=== PATIENT | male | born 1960 | race Caucasian/White ===

== ENCOUNTER 2022-04-29 18:57 | Emergency (ER) | payer BC, SELFPAY ==
[2022-04-29 19:07] VITALS: BP 167/105; PULSE 64; RESP 18; TEMP 36.2; O2SAT 97; BMI 36.3
[2022-04-29 20:00] VITALS: BP 151/88; PULSE 61; RESP 16; O2SAT 99
--- NOTE | 2022-04-29 20:02 | CRLHL7_ITS ---
For Patients: As a result of the Century Cures Act, medical imaging exams and procedure reports are released immediately into your electronic medical record. You may view this report before your referring provider. If you have questions, please contact your health care provider. INDICATION: Vertigo TECHNIQUE: CT head without contrast. COMPARISON: None. FINDINGS: No intracranial hemorrhage. No discrete mass or mass effect. There is no midline shift. The basilar cisterns are patent. No hydrocephalus. The estes-white matter interface is otherwise preserved. No acute osseous abnormality. No extracalvarial soft tissue abnormality. The mastoid air cells are clear. The paranasal sinuses are well-aerated. The visualized portions of the orbits and globes are unremarkable. IMPRESSION: No acute intracranial process per unenhanced head CT. Please note that all CT scans at this facility use dose modulation, iterative reconstruction, and/or weight-based dosing when appropriate to reduce radiation dose to as low as reasonably achievable. Dictated by Rudy Choe MD @ 04/29/2022 8:36:44 PM (Electronically Signed)
--- NOTE | 2022-04-29 20:03 | ED_ITS ---
HPI - General Adult General Chief complaint: Dizziness/Vertigo Stated complaint: Off balance, Feels like he's stroking out Time Seen by Provider: 04/29/22 19:11 Source: patient Mode of arrival: ambulatory Limitations: no limitations History of Present Illness HPI narrative: 62-year-old male presents with an atypical sensation in his head that he has a very hard time describing. Symptoms have been present for 4 days, worsening in nature. Has not tried any medication to help with symptoms. He initially says it is dizziness and then a swishy feeling in his head but then denies vertigo or room spinning. He does not endorse any lightheadedness. It feels like a fullness in both ears and is accompanied by a mild headache. It is constant and worsening. There are no specific things that he can do to make it better worse. It is not affected by lying down, standing up or turning his head. No recent head injury. He said he has had episodes similar to this twice in the past that he has not sought medical care for as his symptoms had resolved within a day. No fevers, no symptoms of illness. No history of seizures. There is no family history of cerebrovascular disease at early ages but they do believe that his mother had a stroke in her mid 70s, she was found in her bed. He does have a notable history of AFib and is anticoagulated on Xarelto. He still believes himself to be in normal sinus rhythm. No recent URI or sinus congestion. He does admit that he was started on duloxetine a couple of months ago which has helped considerably with his lumbar radiculopathy. He states that he does feel a little agitated and anxious on the medication therefore he has started taking it every other day for about the past week. He had not previously connected that the 2 symptoms could be correlated. Past medical history is notable for AFib, hypertension. He also has lumbar radiculopathy. His medications are reviewed from reported records but do not reflect his recent starting of duloxetine. Socially, he is a former smoker heard, denies significant alcohol use. No pertinent travel. Family history negative for Meniere's disease, vertigo or early cerebrovascular disease. See above regarding his mother. ROS is notable for the headache and neurological symptoms as above, otherwise denies times 12 systems. Related Data Home Medications Medication Instructions Recorded Confirmed losartan 50 mg tablet 50 mg PO DAILY 10/18/21 10/18/21 metoprolol succinate 50 mg mg PO DAILY 10/18/21 10/18/21 tablet,extended release 24 hr rivaroxaban 20 mg tablet 20 mg PO DAILY 10/18/21 10/18/21 turmeric 400 mg capsule 450 mg PO 10/18/21 10/18/21 Previous Rx's Medication Instructions Recorded meclizine 25 mg tablet 25 mg PO BID PRN dizziness or 04/29/22 vertigo #20 tabs Allergies Allergy/AdvReac Type Severity Reaction Status Date / Time No Known Drug Allergies [facility]ergy Verified 10/18/21 08:48 [facility] Medical History History of back problems History of cardioversion ?Z98.890 - Other specified postprocedural states (ICD-10) Sleep apnea ?G47.30 - Sleep apnea, unspecified (ICD-10) Stroke ?I63.9 - Cerebral infarction, unspecified (ICD-10) Surgical History H/O umbilical hernia repair (~2018) ?Z98.890 - Other specified postprocedural states (ICD-10) ?Z87.19 - Personal history of other diseases of the digestive system (ICD-10) History of total right hip replacement (~11/2015) ?Z96.641 - Presence of right artificial hip joint (ICD-10) Family History Mother Stroke Sister Diabetes Other Prostate cancer Social History Smoking Status: Never smoker Do you use any of these nicotine containing products: None Second hand tobacco smoke exposure: No Exam Const: Vital Signs, click to edit/add: Vital Signs - 24 hr 04/29/22 19:07 04/29/22 20:08 Temperature 97.1 F L Pulse Rate [Right Pulse Oximeter] 64 Respiratory Rate 18 Blood Pressure [Ri ght Upper Arm] 167/105 H Pulse Oximetry 97 98 Oxygen Delivery Me thod Room Air Documenting provider has reviewed patient's vital signs: yes Common normals: no apparent distress and alert General appearance: cooperative and comfortable Orientation/consciousness: Yes awake Other: Cooperative, not an ideal historian. HENMT: Common normals: normocephalic, head/scalp atraumatic and TM's normal bilaterally Head and scalp: normocephalic and atraumatic Face and sinus: normal facial exam Tympanic membrane: TM's normal bilaterally Mouth: oral and palatal mucosa normal Throat: posterior oropharynx normal Eye: Common normals: PERRL, EOMs intact bilaterally and conjunctivae normal General eye: normal appearance of both eyes Conjunctiva: conjunctiva(e) normal Pupil: PERRL Other: Slight left mostly horizontal nystagmus with slight amount of clockwise rotation. Neck & C-Spine: Common normals: full ROM and no lymphadenopathy Resp: Common normals: normal respiratory effort, no use of accessory muscles and clear to auscultation bilaterally Effort & inspection: able to speak in complete sentences Auscultation: clear to auscultation bilaterally Cardio: Common normals: regular rate, regular rhythm, S1 normal heart sound, S2 normal heart sound and no murmurs Rate: regular rate Rhythm: regular rhythm Heart sounds: S1 normal and S2 normal GI: Common normals: Normal to inspection, nondistended, normoactive bowel sounds present, soft to palpation, non-tender and no hepatosplenomegaly Palpation: soft and no hepatosplenomegaly Extremity: Common normals: normal to inspection and no pedal edema Neuro: Sensorium/orientation: awake and alert Cranial nerves: CN normal except as noted Coordination/balance: [id number] test normal, does not sway with eyes open and Normal rapid alternating movements of the distal upper extremity present (Neuro) Speech: speech normal Gait (neuro): normal gait Motor exam: strength 5/5 throughout, no tremor noted and no movement abnormalities noted Coordination: [id number] test normal, Romberg test normal, does not sway with eyes open and rapid alternating movement UE normal Psych: Attitude: calm and engaged Activity/motor behavior: appropriate eye contact Thought content: normal thought content Insight: insight good Judgement: judgment good Skin: Common normals: no rashes or lesions noted General skin exam: no rashes or lesions noted Course Vital Signs Vital signs: Initial Vital Signs Temperature 97.1 F L 04/29/22 19:07 Temperature Source Temporal Artery Scan 04/29/22 19:07 Pulse Rate 64 04/29/22 19:07 Respiratory Rate 18 04/29/22 19:07 Blood Pressure 167/105 H 04/29/22 19:07 Blood Pressure Mean 125 04/29/22 19:07 Blood Pressure Position Sitting 04/29/22 19:07 Pulse Oximetry 97 04/29/22 19:07 Oxygen Delivery Method Room Air 04/29/22 19:07 Vital Signs Temperature 97.1 F L 04/29/22 19:07 Pulse Rate 64 04/29/22 19:07 Respiratory Rate 18 04/29/22 19:07 Blood Pressure 167/105 H 04/29/22 19:07 Pulse Oximetry 97 04/29/22 19:07 Oxygen Delivery Method Room Air 04/29/22 19:07 Temperature 97.1 F L 04/29/22 19:07 Pulse Rate 64 04/29/22 19:07 Respiratory Rate 18 04/29/22 19:07 Blood Pressure 167/105 H 04/29/22 19:07 Pulse Oximetry 98 04/29/22 20:08 Oxygen Delivery Method Room Air 04/29/22 19:07 Medical Decision Making MDM Narrative Medical decision making narrative: Unfortunately since he is not able to describe the feeling very well, my differential is quite wide. Neurological, cardiac, vestibular, infectious. Will start with basic labs, head CT, EKG. I am suspecting this is actually vertigo and I think it may be brought on by his sporadic use of the duloxetine. Going to try Tylenol and meclizine while we await these results. Patient without significant improvement on duloxetine. I question him further regarding his symptoms to see if he is able to clarify better, it is a mild dull headache with a vague dizzy sensation in his head. Still no other new neurological symptoms. I have reviewed the CT which is reassuring, no signs of abnormality. Labs reviewed, also reassuring. Suspect that this is a mild vertigo or a side effect to his duloxetine. Stressed the importance of taking the duloxetine consistently and I would like for him to try meclizine for couple of days to see if this improves his symptoms. Reviewed alarm symptoms with him. If not improving in 3 days would like him to make a follow-up appoint with his primary care doctor and to arrange MRI. Lab Data Lab results reviewed: Yes I reviewed the patient's lab results Lab results narrative: Unremarkable Labs: Lab Results 04/29/22 Range/Units 20:15 WBC 5.00 (4.50-11.00) K/uL RBC 5.24 (4.30-5.90) m/uL Hgb 15.6 (13.5-17.5) gm/dL Hct 45.9 (37.0-53.0) % MCV 88 (80-100) fL MCH 30 (26-34) pg MCHC 34 (32-36) gm/dL RDW Coeff of Jose 12.7 (11.5-15.5) % Plt Count 187 (140-440) K/uL Neut % (Auto) 41.4 L (42.0-72.0) % Lymph % (Auto) 40.0 (20-44) % [facility] % (Auto) 9.0 (0.0-11.0) % Eos % (Auto) 8.8 H (0.0-7.0) % Baso % (Auto) 0.4 (0.0-3.0) % Neut # (Auto) 2.10 (1.7-7.0) K/uL Lymph # (Auto) 2.00 (0.90-2.90) K/uL [facility] # (Auto) 0.50 (0.00-0.90) K/UL Eos # (Auto) 0.40 (0.00-0.50) K/uL Baso # (Auto) 0.02 (0.00-0.30) K/uL Sodium 139 (135-149) mmol/L Potassium 4.3 (3.6-5.1) mmol/L Chloride 112 (96-114) mmol/L Carbon Dioxide 24 (20-32) mmol/L BUN 15 (7-30) mg/dL Creatinine 1.0 (0.5-1.5) mg/dL Estimated Creat Clear 79.48 Estimated GFR 84 ml/min Glucose 105 (60-115) mg/dL Calcium 9.0 (8.4-10.6) mg/dL Troponin I < 0.01 L (0.01-0.04) ng/mL C-Reactive Protein 0.6 (0.5-1.0) mg/dL Urine Color Yellow (Yellow) Urine Appearance Clear (Clear) Urine pH 7.0 (5.0-8.5) Ur Specific Jackson 1.015 (1.000-1.030) Urine Protein Negative (Negative) Urine Glucose (UA) Negative (Negative) Urine Ketones Negative (Negative) Urine Blood Negative (Negative) Urine Nitrite Negative (Negative) Urine Bilirubin Negative (Negative) Urine Urobilinogen 0.2 (0.2-1.0) Ur Leukocyte Esterase Negative (Negative) Ethyl Alcohol < 0.01 L (0.01-0.03) % POC Troponin I 0.00 L (0.01-0.04) ng/ml Imaging Data CT scan - head: Attestation: I have reviewed the pertinent imaging results. My impression: Normal head CT Radiologist's impression: IMPRESSION: No acute intracranial process per unenhanced head CT. ECG Data Attestation: I personally reviewed and interpreted this ECG as follows: Prior ECG tracings: not available for review (Normal sinus rhythm, rate of 64. Normal axis no significant ST or T-wave abnormalities ) Discharge Plan Discharge Clinical Impression: Vertigo Patient Disposition: Home, Self-Care Condition: Stable Instructions: Dizziness (ED) Additional Instructions: As we discussed, your head CT and labs are all perfect. Your EKG looks good in you are certainly not in AFib again. I am not certain what is causing your dizziness and headache. I do think that your sporadic use of your Cymbalta could be a factor. I would like for you to take the medicine more consistently and every day. I have given you a medicine called meclizine which may help in time, it does take a few hours to kick in. I have given you a prescription for this and I would like for you to continue trying it a couple times per day. If her symptoms are not improving in 3 more days, I would like for you to make a follow-up appointment with her primary care provider. A consideration of doing an MRI may be reasonable. Unfortunately this is not available here on Sunday night and I do not think hospitalized you for 2 days to get this is a good use of your time. There are no identified emergent type symptoms tonight. It is okay to continue chiropractic manipulation as well. Activity Level: No Restrictions Discharge Diet: Regular Prescriptions: New meclizine 25 mg tablet 25 mg PO BID PRN (Reason: dizziness or vertigo) Qty: 20 0RF No Action losartan 50 mg tablet 50 mg PO DAILY rivaroxaban 20 mg tablet 20 mg PO DAILY Rx Instructions: WITH MEAL metoprolol succinate 50 mg tablet extended release 24 hr PO DAILY turmeric 400 mg capsule 450 mg PO Follow Up/Referrals: Tera Coombs MD [Primary Care Provider] - Stand Alone Forms: [email or web address] Info Instructions
[2022-04-29 20:08] VITALS: O2SAT 98
[2022-04-29] MEDS: MECLIZINE HCL 25 MG TABLET PO (20:10)
[2022-04-29] MEDS: ACETAMINOPHEN 500 MG TABLET 1000 MG PO (20:10)
[2022-04-29 20:21] LABS: Basophils Absolute Auto 0.02 K/uL (0.00-0.30); Basophils Percent Auto 0.4 % (0.0-3.0); Eosinophils Percent Auto 8.8 % (0.0-7.0); Hematocrit 45.9 % (37.0-53.0); Hemoglobin* 15.6 gm/dL (13.5-17.5); Immature Granulocytes Abs Auto 0.02 K/uL (0.00-0.30); Immature Granulocytes Pct Auto 0.4 %; Mean Corpuscular HGB Conc 34 gm/dL (32-36); Mean Corpuscular Hemoglobin 30 pg (26-34); Mean Corpuscular Volume 88 fL (80-100); Neutrophils Percent Auto 41.4 % (42.0-72.0); Platelet Count* 187 K/uL (140-440); RDW Coefficient of Variation % 12.7 % (11.5-15.5); Red Blood Count 5.24 m/uL (4.30-5.90)
[2022-04-29 20:23] LABS: Slide Review Reflex No
[2022-04-29 20:37] LABS: Chloride* 112 mmol/L (96-114); Potassium* 4.3 mmol/L (3.6-5.1); Sodium* 139 mmol/L (135-149)
[2022-04-29 20:40] LABS: Est. Creatinine Clearance* 79.48; Estimated Glomerular Filt Rate 84 ml/min
[2022-04-29 20:41] LABS: Appearance Urine Clear (Clear); Bilirubin Urine Negative (Negative); Blood Urea Nitrogen* 15 mg/dL (7-30); Blood Urine Negative (Negative); Carbon Dioxide* 24 mmol/L (20-32); Color Urine Yellow (Yellow); Ethanol* < 0.01 % (0.01-0.03); Glucose Urine Negative (Negative); Glucose* 105 mg/dL (60-115); Ketones Urine Negative (Negative); Leukocyte Esterase Urine Negative (Negative); Nitrite Urine Negative (Negative); Protein Urine Negative (Negative); Specific Gravity Urine 1.015 (1.000-1.030); Urobilinogen Urine 0.2 (0.2-1.0)
[2022-04-29 20:44] LABS: C Reactive Protein* 0.6 mg/dL (0.5-1.0)
[2022-04-29 20:56] LABS: Troponin I* < 0.01 ng/mL (0.01-0.04)
[2022-04-29 21:00] VITALS: BP 148/91; PULSE 66; RESP 16; O2SAT 97
== END 2022-04-29 21:18 | disposition home or self-care (01) ==
PROVIDERS: Emergency Provider Family Medicine; PCP Family Medicine
DX: R42 Dizziness and giddiness (principal)
CPT/HCPCS: 36415; 70450; 80048; 81003; 82077; 84484; 85025; 86140; 93005; 94761; 99283; 99284; 99285; A9270

== ENCOUNTER 2023-05-08 18:24 | Outpatient (CLI) | payer MEDICARE, MEDICAID, SELFPAY | END 2023-05-08 18:25 | disposition home or self-care (01) | LOC: AMB 05-12 08:03 | PROVIDERS: PCP Family Medicine; Visit Provider Student in an Organized Health Care Education/Training Program | DX: R11.10 Vomiting, unspecified (principal); R19.7 Diarrhea, unspecified; R53.1 Weakness | CPT/HCPCS: A0425; A0427 ==

== ENCOUNTER 2023-05-08 19:02 | Emergency (ER) | payer MEDICARE, MEDICAID, SELFPAY ==
[2023-05-08] VITALS (18 sets, daily range): BP systolic 122–169; BP diastolic 61–129; PULSE 61–91; RESP 16–20; TEMP 37.1; O2SAT 91–97; BMI 36.3
--- NOTE | 2023-05-08 19:47 | ED.NAVMDI ---
HPI - Nausea/Vomiting/Diarrhea General Date Seen: 05/08/23 Chief complaint: Nausea/Vomiting Stated complaint: Nausea/vomiting Time Seen by Provider: 05/08/23 19:15 Source: patient Mode of arrival: ambulatory Limitations: no limitations History of Present Illness HPI Narrative: Patient is a 63-year-old male with a history of AFib on Xarelto presenting to emergency department for nausea/vomiting/diarrhea. He states he thinks he got food poisoning. He ate a piece of chicken that was left in his car this morning. Then about 15:00 he started having large amount of emesis. Since then he has been feeling very nauseated. Has had 2 or 3 episodes of watery diarrhea since then. Denies having symptoms like this before. No recent antibiotic use. Does not having any abdominal pain. Was feeling lightheaded and dizzy during the symptoms. Still mildly feeling lightheaded but is much improved from earlier. Has not been able to eat or drink much since symptoms started. Is not having any abdominal pain. No previous abdominal surgeries. Denies fevers, chills, chest pain, shortness of breath, headache, vision changes, weakness, numbness, dysuria. Related Data Home Medications Medication Instructions Recorded Confirmed rivaroxaban 20 mg tablet 20 mg PO DAILY 10/18/21 05/08/23 turmeric 400 mg capsule 450 mg PO 10/18/21 12/25/22 duloxetine 30 mg capsule,delayed 30 mg PO QDAY 12/26/22 12/26/22 release metoprolol succinate 100 mg 100 mg PO QDAY 12/26/22 05/08/23 tablet,extended release 24 hr valsartan PO 12/26/22 12/26/22 Allergies Allergy/AdvReac Type Severity Reaction Status Date / Time No Known Drug Allergies Allergy Verified 05/08/23 19:10 Review of Systems Status of ROS: Reports: 10 or more systems reviewed and unremarkable except as noted in History and below [facility] Medical History Encounter for follow-up ?Z09 - Encounter for follow-up examination after completed treatment for conditions other than malignant neoplasm (ICD-10) History of cardioversion ?Z98.890 - Other specified postprocedural states (ICD-10) History of back problems Sleep apnea ?G47.30 - Sleep apnea, unspecified (ICD-10) Stroke ?I63.9 - Cerebral infarction, unspecified (ICD-10) Surgical History H/O umbilical hernia repair (~2018) ?Z98.890 - Other specified postprocedural states (ICD-10) ?Z87.19 - Personal history of other diseases of the digestive system (ICD-10) History of total right hip replacement (~11/2015) ?Z96.641 - Presence of right artificial hip joint (ICD-10) Family History Mother Stroke Sister Diabetes Other Prostate cancer Social History Smoking Status: Never smoker Do you use any of these nicotine containing products: None Second hand tobacco smoke exposure: No How often do you have a drink containing alcohol: never AUDIT-C Alcohol total score: 0 Non-prescribed substance use: denies use Exam Narrative: Exam Narrative: Const: Well-nourished, Well-developed, in mild distress Eyes: PERRL, no conjunctival injection, and symmetrical lids HENT: Atraumatic external nose and ears. Moist mucous membranes. Neck: Symmetric, trachea midline, No thyromegaly. CVS: RRR, No murmurs or gallops. Peripheral pulses 2+ and equal in all extremities RESP: Unlabored respiratory effort. Clear to auscultation bilaterally. GI: Nontender/Nondistended, No rebound or guarding. MSK:Extremities w/o deformity, Normal Active ROM Skin: Warm, Dry. No rashes or lesions. Neuro: Normal Muscle tone, No focal neurological deficits. Psych: Awake, Alert, & Oriented x3. Appropriate mood and affect. Const: Vital Signs, click to edit/add: Vital Signs - 24 hr 05/08/23 19:11 05/08/23 20:10 05/08/23 20:15 Temperature 98.8 F Pulse Rate 63 74 Pulse Rate [Pulse Oximeter] 61 Pulse Rate [orthos tatic lying Right] Pulse Rate [orthos tatic sitting Righ t] Pulse Rate [orthos tatic standing Rig ht] Respiratory Rate 20 Blood Pressure Blood Pressure [Ri ght Upper Arm] 153/129 H Blood Pressure [or thostatic lying Ri ght Arm] Blood Pressure [or thostatic sitting Right Arm] Blood Pressure [or thostatic standing Right Arm] Pulse Oximetry 97 97 92 Oxygen Delivery Me thod Room Air 05/08/23 20:30 05/08/23 20:32 05/08/23 20:45 Temperature Pulse Rate 75 68 Pulse Rate [Pulse Oximeter] Pulse Rate [orthos tatic lying Right] Pulse Rate [orthos tatic sitting Righ t] Pulse Rate [orthos tatic standing Rig ht] Respiratory Rate Blood Pressure 122/61 Blood Pressure [Ri ght Upper Arm] Blood Pressure [or thostatic lying Ri ght Arm] Blood Pressure [or thostatic sitting Right Arm] Blood Pressure [or thostatic standing Right Arm] Pulse Oximetry 95 91 Oxygen Delivery Me thod 05/08/23 21:02 05/08/23 21:32 05/08/23 22:02 Temperature Pulse Rate 78 Pulse Rate [Pulse Oximeter] Pulse Rate [orthos tatic lying Right] Pulse Rate [orthos tatic sitting Righ t] Pulse Rate [orthos tatic standing Rig ht] Respiratory Rate 20 Blood Pressure 142/91 H 154/95 H 161/98 H Blood Pressure [Ri ght Upper Arm] Blood Pressure [or thostatic lying Ri ght Arm] Blood Pressure [or thostatic sitting Right Arm] Blood Pressure [or thostatic standing Right Arm] Pulse Oximetry 94 Oxygen Delivery Me thod 05/08/23 22:32 05/08/23 22:41 05/08/23 22:42 Temperature Pulse Rate 82 88 Pulse Rate [Pulse Oximeter] Pulse Rate [orthos tatic lying Right] Pulse Rate [orthos tatic sitting Righ t] Pulse Rate [orthos tatic standing Rig ht] Respiratory Rate Blood Pressure 153/96 H 142/98 H Blood Pressure [Ri ght Upper Arm] Blood Pressure [or thostatic lying Ri ght Arm] Blood Pressure [or thostatic sitting Right Arm] Blood Pressure [or thostatic standing Right Arm] Pulse Oximetry 94 95 Oxygen Delivery Me thod 05/08/23 22:44 05/08/23 22:45 05/08/23 22:46 Temperature Pulse Rate 88 87 91 Pulse Rate [Pulse Oximeter] Pulse Rate [orthos tatic lying Right] Pulse Rate [orthos tatic sitting Righ t] Pulse Rate [orthos tatic standing Rig ht] Respiratory Rate Blood Pressure 161/95 H 169/120 H Blood Pressure [Ri ght Upper Arm] Blood Pressure [or thostatic lying Ri ght Arm] Blood Pressure [or thostatic sitting Right Arm] Blood Pressure [or thostatic standing Right Arm] Pulse Oximetry 97 96 96 Oxygen Delivery Me thod 05/08/23 22:57 05/08/23 23:03 05/08/23 23:32 Temperature Pulse Rate 82 85 Pulse Rate [Pulse Oximeter] Pulse Rate [orthos tatic lying Right] 82 Pulse Rate [orthos tatic sitting Righ t] 85 Pulse Rate [orthos tatic standing Rig ht] 90 Respiratory Rate 16 16 Blood Pressure 159/94 H 146/92 H Blood Pressure [Ri ght Upper Arm] Blood Pressure [or thostatic lying Ri ght Arm] 142/98 H Blood Pressure [or thostatic sitting Right Arm] 161/95 H Blood Pressure [or thostatic standing Right Arm] 169/120 H Pulse Oximetry 92 94 Oxygen Delivery Me thod Course Vital Signs Vital signs: Initial Vital Signs Temperature 98.8 F 05/08/23 19:11 Temperature Source Temporal Artery Scan 05/08/23 19:11 Pulse Rate 61 05/08/23 19:11 Pulse Rhythm Regular 05/08/23 19:11 Pulse Strength 3+ Normal 05/08/23 19:11 Respiratory Rate 20 05/08/23 19:11 Blood Pressure 153/129 H 05/08/23 19:11 Blood Pressure Mean 137 H 05/08/23 19:11 Blood Pressure Position Sitting 05/08/23 19:11 Pulse Oximetry 97 05/08/23 19:11 Oxygen Delivery Method Room Air 05/08/23 19:11 Vital Signs Temperature 98.8 F 05/08/23 19:11 Pulse Rate 61 05/08/23 19:11 Respiratory Rate 20 05/08/23 19:11 Blood Pressure 153/129 H 05/08/23 19:11 Pulse Oximetry 97 05/08/23 19:11 Oxygen Delivery Method Room Air 05/08/23 19:11 Temperature 98.8 F 05/08/23 19:11 Pulse Rate 85 05/08/23 23:32 Respiratory Rate 16 05/08/23 23:32 Blood Pressure 146/92 H 05/08/23 23:32 Pulse Oximetry 94 05/08/23 23:32 Oxygen Delivery Method Room Air 05/08/23 19:11 Medications Administered Medications: Discontinued Medications Generic Name Dose Route Start Last Admin Trade Name Jerome PRDeb Reason Stop Dose Admin Diphenhydramine HCl 25 mg 05/08/23 22:29 05/08/23 22:43 Diphenhydramine 50 Mg/Ml Inj IVP 05/08/23 22:30 25 mg ONCE ONE Administration Lactated Ringer's 1,000 mls @ 1,000 mls/hr 05/08/23 19:36 05/08/23 21:25 Lactated Ringers 1000 Ml IV 05/08/23 20:35 Infused .Q1H ONE Infusion Lactated Ringer's 1,000 mls @ 1,000 mls/hr 05/08/23 21:19 05/08/23 22:37 Lactated Ringers 1000 Ml IV 05/08/23 22:18 Infused .Q1H ONE Infusion Ketorolac Tromethamine 15 mg 05/08/23 21:19 05/08/23 21:27 Ketorolac 15 Mg/Ml Inj IVP 05/08/23 21:20 15 mg ONCE ONE Administration Meclizine HCl 25 mg 05/08/23 22:29 05/08/23 22:42 Meclizine Hcl 25 Mg Tablet PO 05/08/23 22:30 25 mg ONCE ONE Administration Metoclopramide HCl 10 mg 05/08/23 22:29 05/08/23 22:42 Metoclopramide Hcl 5 Mg/Ml Inj IVP 05/08/23 22:30 10 mg ONCE ONE Administration Ondansetron HCl 4 mg 05/08/23 19:36 05/08/23 19:59 Ondansetron 2 Mg/Ml Inj IVP 05/08/23 19:37 4 mg ONCE ONE Administration MDM - Nausea/Vomiting/Diarrhea MDM Narrative Medical decision making narrative: Patient is a 63-year-old male presenting for nausea, vomiting, diarrhea. Is not in any pain currently. Does seem dehydrated on L fluids will be given. Will also give Zofran for nausea. No recent antibiotics but with multiple large episodes of diarrhea will check for C diff. also order CBC, CMP, lipase. This time I do not believe imaging is necessary Patient's lab work all returned showing no concerning findings. He had another episode of emesis. He is now stating he is feeling very lightheaded and dizzy. States he has been feeling lightheaded and dizzy since he got here and had to hold himself up when he was standing by the sink to clean himself. I do not notice any ataxia when I saw the patient by the sink. He seemed to be doing well. He states he has a headache also. Gave him another L of fluids and some Toradol to see if that will help. Even after that he was still feeling symptomatic. While this sounds more like lightheadedness based on his description of his symptoms we will do a CT scan of the head to make sure there are not any concerning abnormalities. Will also give him some Reglan and Benadryl along with meclizine to see if this improves his symptoms. On my exam those symptoms did not worsen with movement of the head. Orthostatic blood pressures were done and were normal Patient is symptoms resolved after next round of medication. He is now feels safe for discharge. He was not able to give us a stool sample and is very unlikely this is C diff. CT scan of the head reviewed by myself and the radiologist showing no concerning findings. He still feeling well and is eager to go home. Will be discharged at this time. Lab Data Labs: Lab Results 05/08/23 Range/Units 20:00 WBC 8.28 (4.50-11.00) K/uL RBC 5.03 (4.30-5.90) m/uL Hgb 15.0 (13.5-17.5) gm/dL Hct 44.2 (37.0-53.0) % MCV 88 (80-100) fL MCH 30 (26-34) pg MCHC 34 (32-36) gm/dL RDW Coeff of Jose 12.5 (11.5-15.5) % Plt Count 174 (140-440) K/uL Neut % (Auto) 85.7 H (42.0-72.0) % Lymph % (Auto) 9.9 L (20-44) % Norton % (Auto) 3.5 (0.0-11.0) % Eos % (Auto) 0.5 (0.0-7.0) % Baso % (Auto) 0.2 (0.0-3.0) % Neut # (Auto) 7.10 H (1.7-7.0) K/uL Lymph # (Auto) 0.80 L (0.90-2.90) K/uL Norton # (Auto) 0.30 (0.00-0.90) K/UL Eos # (Auto) 0.04 (0.00-0.50) K/uL Baso # (Auto) 0.02 (0.00-0.30) K/uL Abs Immat Gran (auto) 0.02 (0.00-0.30) K/uL Imm/Tot Granulo (auto) 0.2 % Sodium 138 (135-149) mmol/L Potassium 3.8 (3.6-5.1) mmol/L Chloride 105 (96-114) mmol/L Carbon Dioxide 23 (20-32) mmol/L Anion Gap 10 (7-15) mEq/L BUN 23 (7-30) mg/dL Creatinine 1.2 (0.5-1.5) mg/dL Estimated Creat Clear 65.36 Estimated GFR 67 ml/min Glucose 160 H (60-115) mg/dL Calcium 9.5 (8.4-10.6) mg/dL Total Bilirubin 0.8 (0.1-1.5) mg/dL AST 28 (12-35) U/L ALT 31 (4-50) U/L Alkaline Phosphatase 49 (40-150) U/L Total Protein 7.7 (6.0-8.3) g/dL Albumin 4.4 (3.3-5.0) g/dL Lipase 101 (23-300) U/L SARS-CoV-2 (PCR) Negative SARS-CoV-2 (Negative) Influenza Type A (PCR) Negative PCR FLU A (Negative) Influenza Type B (PCR) Negative PCR FLU B (Negative) RSV (PCR) Negative PCR RSV (Negative) Imaging Data CT scan - head: Attestation: I have reviewed the pertinent imaging results. Radiologist's impression: No acute intracranial findings. Please note that all CT scans at this facility use dose modulation, iterative reconstruction, and/or weight-based dosing when appropriate to reduce radiation dose to as low as reasonably achievable. Dictated by Narayan Waggoner MD @ 05/09/2023 1:22:25 AM Discharge Plan Discharge Clinical Impression: Dehydration Nausea & vomiting Qualifiers: Vomiting type: unspecified Qualified Code(s): R11.2 - Nausea with vomiting, unspecified Patient Disposition: Home, Self-Care Condition: Improved Instructions: Acute Nausea and Vomiting (DC) Additional Instructions: Take Tylenol and ibuprofen for developed any fevers or headaches. Make sure to stay well hydrated. Use the Zofran as needed for nausea. It was prescribed through [facility]. Return to emergency department for new or worsening symptoms Prescriptions: No Action rivaroxaban 20 mg tablet 20 mg PO DAILY Rx Instructions: WITH MEAL turmeric 400 mg capsule 450 mg PO valsartan PO metoprolol succinate 100 mg tablet extended release 24 hr 100 mg PO QDAY duloxetine 30 mg capsule,delayed release(DR/EC) 30 mg PO QDAY Follow Up/Referrals: Tera Coombs MD [Primary Care Provider] - Stand Alone Forms: [employer] Info Instructions
[2023-05-08] MEDS: LACTATED RINGERS 1000 ML 1,000 ML IV ×2 (19:58→21:26)
[2023-05-08] MEDS: ONDANSETRON 2 MG/ML inj 4 MG IVP (19:59)
[2023-05-08 20:12] LABS: Basophils Absolute Auto 0.02 K/uL (0.00-0.30); Basophils Percent Auto 0.2 % (0.0-3.0); Eosinophils Absolute Auto 0.04 K/uL (0.00-0.50); Eosinophils Percent Auto 0.5 % (0.0-7.0); Hematocrit 44.2 % (37.0-53.0); Immature Granulocytes Abs Auto 0.02 K/uL (0.00-0.30); Immature Granulocytes Pct Auto 0.2 %; Lymphocytes Percent Auto 9.9 % (20-44); Mean Corpuscular HGB Conc 34 gm/dL (32-36); Mean Corpuscular Hemoglobin 30 pg (26-34); Mean Corpuscular Volume 88 fL (80-100); Monocytes Percent Auto 3.5 % (0.0-11.0); Neutrophils Percent Auto 85.7 % (42.0-72.0); Platelet Count* 174 K/uL (140-440); RDW Coefficient of Variation % 12.5 % (11.5-15.5); Red Blood Count 5.03 m/uL (4.30-5.90); White Blood Count* 8.28 K/uL (4.50-11.00)
[2023-05-08 20:21] LABS: Slide Review Reflex No
[2023-05-08 20:24] LABS: Albumin* 4.4 g/dL (3.3-5.0)
[2023-05-08 20:25] LABS: Chloride* 105 mmol/L (96-114); Potassium* 3.8 mmol/L (3.6-5.1); Sodium* 138 mmol/L (135-149)
[2023-05-08 20:27] LABS: Anion Gap 10 mEq/L (7-15); Aspartate Amino Transferase* 28 U/L (12-35); Bilirubin Total* 0.8 mg/dL (0.1-1.5); Carbon Dioxide* 23 mmol/L (20-32); Creatinine* 1.2 mg/dL (0.5-1.5); Est. Creatinine Clearance* 65.36; Estimated Glomerular Filt Rate 67 ml/min
[2023-05-08 20:28] LABS: Alanine Aminotransferase* 31 U/L (4-50); Alkaline Phosphatase* 49 U/L (40-150); Blood Urea Nitrogen* 23 mg/dL (7-30); Calcium* 9.5 mg/dL (8.4-10.6); Glucose* 160 mg/dL (60-115); Lipase* 101 U/L (23-300); Total Protein* 7.7 g/dL (6.0-8.3)
[2023-05-08 20:48] LABS: PCR FLU A Negative PCR FLU A (Negative); PCR FLU B Negative PCR FLU B (Negative); PCR RSV Negative PCR RSV (Negative); SARS PCR* Negative SARS-CoV-2 (Negative)
[2023-05-08] MEDS: KETOROLAC 15 MG/ML inj IVP (21:27)
--- NOTE | 2023-05-08 22:04 | ED.NURSE ---
pt had large emesis 300ml, notified. Currently denies being nausea
--- NOTE | 2023-05-08 22:29 | CT_ITS ---
Patient: DANIEL QUINTANILLA Facility:?[facility] Patient ID:?[id number] Site Patient ID:?[id number]. Site :?[id number] Study:?CT-Head w/o-05/08/2023 11:27:43 PM Ordering Physician:Zuleyma Final Report: TECHNIQUE: Multiplanar CT examination of the head was performed without the use of intravenous contrast. INDICATION: Trauma. COMPARISON: CT head 04/29/2022. FINDINGS: No loss of estes-white differentiation to suggest recent territorial infarct. No intracranial hemorrhage, abnormal extra-axial fluid collection, hydrocephalus or midline shift. The ventricles and cerebral sulci are normal in caliber. The basal cisterns are patent. The paranasal sinuses and mastoid air cells remain clear. The orbits and calvarium are unremarkable. The cerebellar tonsils are normal position. IMPRESSION: No acute intracranial findings. Please note that all CT scans at this facility use dose modulation, iterative reconstruction, and/or weight-based dosing when appropriate to reduce radiation dose to as low as reasonably achievable. Dictated by Narayan Waggoner MD @ 05/09/2023 1:22:25 AM Signed by:?Narayan Waggoner MD @05/09/2023 1:22:25 AM (Electronic Signature)
[2023-05-08] MEDS: MECLIZINE HCL 25 MG TABLET PO (22:42)
[2023-05-08] MEDS: METOCLOPRAMIDE HCL 5 MG/ML INJ 10 MG IVP (22:42)
[2023-05-08] MEDS: diphenhydrAMINE 50 MG/ML inj 25 MG IVP (22:43)
== END 2023-05-09 01:32 | disposition home or self-care (01) ==
PROVIDERS: Emergency Provider Student in an Organized Health Care Education/Training Program; PCP Family Medicine
DX: R11.2 Nausea with vomiting, unspecified (principal); E86.0 Dehydration
CPT/HCPCS: 36415; 70450; 80053; 83690; 85025; 87493; 87631; 99283; 99284; A9270; J1200; J1885; J2405; J2765; J7120

== ENCOUNTER 2023-05-11 12:14 | Emergency (ER) | payer MEDICARE, MEDICAID, SELFPAY ==
[2023-05-11 12:25] VITALS: BP 175/106; PULSE 48; RESP 18; TEMP 36.5; O2SAT 97; BMI 36.3
--- NOTE | 2023-05-11 13:32 | ED.DIZZY ---
HPI - Dizziness General Chief Complaint: Dizziness/Vertigo Stated Complaint: blurry vision,dizzy,headache Time Seen by Provider: 05/11/23 12:50 History of Present Illness HPI Narrative: This 63-year-old male comes in reporting symptoms of dizziness which he clarifies as vertigo symptoms. He was seen a couple days ago with similar symptoms. He states that this came on rather suddenly with associated nausea, vomiting, and diarrhea. At his visit 3 days ago he did have CT scan of his head and labs acquired with no abnormal findings. He continues to have these symptoms and returns today. He states that he can reproduce symptoms by turning his head laterally but does not have any symptoms when bowing his head or tilting his head back. Remaining still helps minimize symptoms. He does not report any symptoms of altered sensation otherwise and does not have any unilateral weakness. Related Data Home Medications Medication Instructions Recorded Confirmed rivaroxaban 20 mg tablet 20 mg PO DAILY 10/18/21 05/08/23 turmeric 400 mg capsule 450 mg PO 10/18/21 12/25/22 duloxetine 30 mg capsule,delayed 30 mg PO QDAY 12/26/22 12/26/22 release metoprolol succinate 100 mg 100 mg PO QDAY 12/26/22 05/08/23 tablet,extended release 24 hr valsartan PO 12/26/22 12/26/22 Previous Rx's Medication Instructions Recorded meclizine 25 mg tablet 25 mg PO QID #20 tabs 05/11/23 ondansetron HCl 4 mg tablet 4 mg PO Q6H #20 tabs 05/11/23 Allergies Allergy/AdvReac Type Severity Reaction Status Date / Time No Known Drug Allergies Allergy Verified 05/08/23 19:10 Review of Systems Status of ROS: Reports: 10 or more systems reviewed and unremarkable except as noted in History and below Narrative: Constitutional: No fevers, no weight gain or loss. Eyes: No discharge. No vision changes. HENT: No congestion, no sore throat, no ear pain. Cardiovascular: No chest pain, no palpitations. Respiratory: No shortness of breath, no wheezes, no cough. Gastrointestinal: No abdominal pain, no vomiting, no diarrhea. Genitourinary: No dysuria, no hematuria. Musculoskeletal: Normal range of motion. Skin: No rashes, no pruritis. Neurological: No weakness, sensory change, speech change. Vertigo symptoms as described above. Endo/Heme/Allergies: No bruising or bleeding. No polydipsia. Pysch: no suicidality, no anxiety, no insomnia. All other systems reviewed and are negative. [facility] Medical History Encounter for follow-up ?Z09 - Encounter for follow-up examination after completed treatment for conditions other than malignant neoplasm (ICD-10) History of cardioversion ?Z98.890 - Other specified postprocedural states (ICD-10) History of back problems Sleep apnea ?G47.30 - Sleep apnea, unspecified (ICD-10) Stroke ?I63.9 - Cerebral infarction, unspecified (ICD-10) Surgical History H/O umbilical hernia repair (~2018) ?Z98.890 - Other specified postprocedural states (ICD-10) ?Z87.19 - Personal history of other diseases of the digestive system (ICD-10) History of total right hip replacement (~11/2015) ?Z96.641 - Presence of right artificial hip joint (ICD-10) Family History Mother Stroke Sister Diabetes Other Prostate cancer Social History Smoking Status: Never smoker Do you use any of these nicotine containing products: None Second hand tobacco smoke exposure: No How often do you have a drink containing alcohol: never AUDIT-C Alcohol total score: 0 Non-prescribed substance use: denies use Exam Narrative: Exam Narrative: Constitutional: Well-developed, well-nourished, no acute distress. HEENT: Normocephalic, atraumatic. Neck: Normal range of motion. Nontender. Supple. Heart: Regular. No murmurs. Normal rate. Intact distal pulses. Lungs: Clear to auscultation. No chest discomfort. No wheezes, rhonchi, or rales. Abdomen: Normal bowel sounds. Nontender. No rebound tenderness. Genitalia: Deferred. Back: No midline tenderness. Normal range of motion. Extremities: Normal range of motion. No injury. Skin: Intact. No rash. Warm. No erythema or pallor. Neurologic: No altered sensation. No weakness. Alert and oriented. No facial asymmetry. Tongue is midline. [id number] is normal. No pronator drift. Shaker Tender strength is equal bilaterally. Able to raise each leg from the bed. Psychiatric: No suicidality. No anxiety or depression. No insomnia. Nursing notes and vitals signs are reviewed. Const: Vital Signs, click to edit/add: Vital Signs - 24 hr 05/11/23 12:25 Temperature 97.7 F Pulse Rate [Right Pulse Oximeter] 48 L Respiratory Rate 18 Blood Pressure [Ri ght Upper Arm] 175/106 H Pulse Oximetry 97 Oxygen Delivery Me thod Room Air Course Vital Signs Vital signs: Initial Vital Signs Temperature 97.7 F 05/11/23 12:25 Temperature Source Temporal Artery Scan 05/11/23 12:25 Pulse Rate 48 L 05/11/23 12:25 Respiratory Rate 18 05/11/23 12:25 Blood Pressure 175/106 H 05/11/23 12:25 Blood Pressure Mean 129 H 05/11/23 12:25 Blood Pressure Position Sitting 05/11/23 12:25 Pulse Oximetry 97 05/11/23 12:25 Oxygen Delivery Method Room Air 05/11/23 12:25 Vital Signs Temperature 97.7 F 05/11/23 12:25 Pulse Rate 48 L 05/11/23 12:25 Respiratory Rate 18 05/11/23 12:25 Blood Pressure 175/106 H 05/11/23 12:25 Pulse Oximetry 97 05/11/23 12:25 Oxygen Delivery Method Room Air 05/11/23 12:25 Temperature 97.7 F 05/11/23 12:25 Pulse Rate 48 L 05/11/23 12:25 Respiratory Rate 18 05/11/23 12:25 Blood Pressure 175/106 H 05/11/23 12:25 Pulse Oximetry 97 05/11/23 12:25 Oxygen Delivery Method Room Air 05/11/23 12:25 MDM - Dizziness MDM Narrative Medical decision making narrative: This patient comes in with report of vertigo symptoms an occasional so she did nausea. These symptoms had come on rather suddenly and seem to be dissipating but are yet persistent. He does not report any hearing changes. His neurologic exam is completely normal. I did review lab and imaging results from his recent visit. I did discuss those options again but in a process of shared decision-making they were declined. The patient's symptoms are likely due to a peripheral vertigo such as benign positional vertigo. It seems that his symptoms are reproduced in a certain plane of orientation suggesting canalith in the semicircular canal. The patient did receive oral doses of meclizine and Zofran here. He received prescriptions for these same medicines also. I did advise him to follow-up with clinic or physical therapy for canalith repositioning maneuver if symptoms are persistent or worsening. Discharge Plan Discharge Clinical Impression: Benign positional vertigo Patient Disposition: Home, Self-Care Condition: Stable Additional Instructions: Take medication as needed and indicated. Follow up with MD return if worsening. Consider canalith repositioning maneuver. Prescriptions: New ondansetron HCl 4 mg tablet 4 mg PO Q6H Qty: 20 0RF meclizine 25 mg tablet 25 mg PO QID Qty: 20 0RF No Action rivaroxaban 20 mg tablet 20 mg PO DAILY Rx Instructions: WITH MEAL turmeric 400 mg capsule 450 mg PO valsartan PO metoprolol succinate 100 mg tablet extended release 24 hr 100 mg PO QDAY duloxetine 30 mg capsule,delayed release(DR/EC) 30 mg PO QDAY Follow Up/Referrals: Tera Coombs MD [Primary Care Provider] - Stand Alone Forms: [employer] Info Instructions
[2023-05-11] MEDS: ONDANSETRON ODT 4 MG TAB PO (13:43)
[2023-05-11] MEDS: MECLIZINE HCL 25 MG TABLET PO (13:43)
== END 2023-05-11 13:50 | disposition home or self-care (01) ==
LOC: ED 13:46
PROVIDERS: Emergency Provider Emergency Medicine Emergency Medical Services; PCP Family Medicine
DX: H81.10 Benign paroxysmal vertigo, unspecified ear (principal)
CPT/HCPCS: 99283; 99284; A9270

== ENCOUNTER 2024-08-26 11:01 | Emergency (ER) | payer MEDICARE, SELFPAY ==
--- OUTSIDE RECORDS SUMMARY | 2024-07-31 11:20 | XMS_ITS | Encounter Summary ---
Author Organization [facility] er Address [address] [place] [address] Care Team Providers Care Cardiovascular Physician Assistant Name Role Phone Kirit Torres MD Primary Care Provider [phone] Reason for Visit * Reason Comments Follow-up Encounter Details Date Type Department Care Team (Late st Contact Info) Description 07/31/2024 11:20 AM CDT Office Visit [facility] [address] [place] [phone] Kirit Torres MD [facility] [address] [place] [address] Obesity, morbid (HCC) (Primary Dx); Paroxysmal atrial fibrillation (HCC); Essential hypertension; Primary hypertension; Chronic obstructive pulmonary disease, unspecified COPD type (HCC); Wheezing; Lumbar radicular syndrome Social History Tobacco Use Types Packs/Day Years Used Date Smoking Tobacco: Former Cigarettes 0.4 2 1 1976 Smokeless Tobacco: Never Alcohol Use Standard Drinks/Week Comments No 0 (1 standard drink = 0.6 oz pur e alcohol) sober since 1999 B1300 Health Literacy Answer Date Recor ded How often do you need to hav e someone help you when you read instructions, pamphlets, or other written material from your doctor or pharmacy? Never 06/10/2024 [facility] Utilities Answer Date Recorded In the past 12 months has e [employer], gas, oil, or water [employer] threatened to shut off services in your home? No 06/10/2024 Humiliation, Afraid, Rape, and Kick questionnair e Answer Date Recorded Within the last year, have y ou been afraid of your partner or ex-partner? No 06/10/2024 Within the last year, have y ou been humiliated or emotionally abused in other ways by your partner or ex-partner? No Within the last year, have y ou been kicked, hit, slapped, or otherwise physically hurt by your partner or ex-partner? No 06/10/2024 Within the last year, have y ou been raped or forced to have any kind of sexual activity by your partner or ex-partner? No 06/10/2024 Social Connection and Isolat ion Panel [NHANES] Answer Date Recorded In a typical week, how many times do you talk on the phone with family, friends, or neighbors? More than three times a week 06/10/2024 How often do you get togethe r with friends or relatives? Three times a week 06/10/2024 How often do you attend chur ch or quaker services? More than 4 times per year 06/10/2024 Do you belong to any clubs o r organizations such as latter day groups, unions, fraternal or athletic groups, or school groups? Yes 06/10/2024 How often do you attend meet ings of the clubs or organizations you belong to? 1 to 4 times per year 06/10/2024 Are you , , di vorced, , never , or living with a partner? Never 06/10/2024 AUDIT-C Answer Date Recorded Q1: How often do you have a drink containing alcohol? Never 06/10/2024 Q2: How many drinks containi ng alcohol do you have on a typical day when you are drinking? Patient does not drink Q3: How often do you have si x or more drinks on one occasion? Never 06/10/2024 Overall Financial Resource Strain (CARDIA) Answe r Date Recorded How hard is it for you to pa y for the very basics like food, housing, medical care, and heating? Not hard at all 06/10/2024 PHQ-2 Answer Date Recorded PHQ-9 Total Score 1 06/10/2024 [facility] of Occupat ional Health - Occupational Stress Questionnaire Answer Date Recorded Do you feel stress - tense, restless, nervous, or anxious, or unable to sleep at night because your mind is troubled all the time - these days? Not at all 06/10/2024 Exercise Vital Sign Answer Date Recorde d On average, how many days pe r week do you engage in moderate to strenuous exercise (like a brisk walk)? 5 days 06/10/2024 On average, how many minutes do you engage in exercise at this level? 150+ min 06/10/2024 Hunger Vital Sign Answer Date Recorded Within the past 12 months, y ou worried that your food would run out before you got the money to buy more. Never true 06/11/19 25 Within the past 12 months, t he food you bought just didn't last and you didn't have money to get more. Never true 06/10/2024 PRAPARE - Transportation Answer Date Re corded In the past 12 months, has l ack of transportation kept you from medical appointments or from getting medications? No 07/2024 In the past 12 months, has l ack of transportation kept you from meetings, work, or from getting things needed for daily living? No 06/10/2024 Housing Stability Vital Sign Answer Anup e Recorded In the last 12 months, was t here a time when you were not able to pay the mortgage or rent on time? No 12/08/2022 In the last 12 months, how many places have you lived? 1 12/08/2022 In the last 12 months, was t here a time when you did not have a steady place to sleep or slept in a jail (including now)? No 12/08/2022 Housing Stability Vital Sign Answer Anup e Recorded In the last 12 months, was t here a time when you were not able to pay the mortgage or rent on time? No 06/10/2024 In the past 12 months, how m any times have you moved where you were living? 0 06/10/2024 At any time in the past 12 m [facility], were you homeless or living in a jail (including now)? No 06/10/2024 Interpersonal Safety Questionnaire Answer Date Recorded How often does anyone, jaydon rich family and friends, physically hurt you? Never 02/18/2024 How often does anyone, jaydon rich family and friends, insult or talk down to you? Never 02/18/2024 How often does anyone, jaydon rich family and friends, threaten you with harm? Never 02/18/2024 How often does anyone, inclu ding family and friends, threaten you with harm? Never 02/18/2024 Education Answer Date Recorded What is the highest level of school you have completed or the highest degree you have received? 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 02/06/1976 02/05/18 83 documented as of this encounter Last Filed Vital Signs Vital Sign Reading Time Taken Comments Blood Pressure 144/101 07/31/2024 11:10 AM CDT Pulse 69 07/31/2024 11:10 AM CDT Temperature 36.4 C (97.6 F) 07/31/2024 11:06 AM CDT Respiratory Rate 20 07/31/2024 11:06 AM CDT Oxygen Saturation 97% 07/31/2024 11:06 AM CDT Inhaled Oxygen Concentration - - Weight 124 kg (272 lb 9.6 oz) 07/31/2024 11:06 A M CDT Height - - Body Mass Index 38.02 07/10/2024 1:12 PM CDT documented in this encounter Patient Instructions * Patient Instructions* Kirit Torres MD - 07/31/2024 11:20 AM CDT 2 weeks for blood pressure recheck with nursing 3 months with inhaler follow up 5 months for annual check up documented in this encounter Progress Notes * Kirit Torres MD - 07/31/2024 11:20 AM CDT Diagnosis Plan 1. Obesity, morbid (HCC) 2. Paroxysmal atrial fibrillation (HCC) dilTIAZem (TIAZAC) 240 MG 24 hr capsule 3. Essential hypertension dilTIAZem (TIAZAC) 240 MG 24 hr capsule 4. Primary hypertension valsartan (Diovan) 160 MG tablet hydroCHLOROthiazide (HYDRODIURIL) 25 MG tablet 5. Chronic obstructive pulmonary disease, unspecified COPD type (HCC) Fluticasone-Salmeterol (ADVAIR DISKUS) 100-50 MCG/ACT diskus inhaler 6. Wheezing albuterol HFA (Ventolin HFA) 108 (90 Base) MCG/ACT inhaler 7. Lumbar radicular syndrome Assessment & Plan Hypertension: Inconsistent BP readings, diastolic 89 at sleep specialist and higher today. Current meds include hydrochlorothiazide 25 mg daily, diltiazem 240 mg daily, and valsartan 80 mg daily. Diagnosis is uncontrolled. - Increased valsartan to 160 mg daily; updated Rx's for year refill - Follow-up with nurse in 2 weeks to monitor BP on increased valsartan. Weight management: Weight decreased from 281 lbs (05/15/2024) to 272 lbs today (loss of 9 lbs over 2.5 months). Diagnosis is improved. - Encouraged to continue current exercise and dietary regimen. COPD: Diagnosis is stable. - Prescribed Advair Diskus, 1 puff BID - Refilled albuterol inhaler. AGEE: Likely due to a combination of factors including: poor exercise tolerance due to deconditioning, obesity, possible chronotropic incompetence and obstructive pulmonary disease. Normal chest x-ray; office spirometry showed mild obstruction. Stress ECHO negative for inducible ischemia, though didnot reach goal heart rate response. Improved breathing with walking; no benefit from prior inhaler (LAMA). - Encourage continued regular exercise - Prescribed Advair Diskus, 1 puff BID - Refilled albuterol inhaler. - If persistent symptoms despite maintaining cardiopulmonary conditioning regimen and weight loss, would recommend follow up with Dr. Robert [facility] Cardiology to review if his chronotropic incompetenceneeds further specialist management Patient Instructions 2 weeks for blood pressure recheck with nursing 3 months with inhaler follow up 5 months for annual check up Subjective Chief Complaint Patient presents with Follow-up History of Present Illness The patient presents for follow-up. He reports improved respiratory function with a regimen of walking 3 miles three times weekly. He uses albuterol before walks but notes no significant benefit from the Umeclidinium (LAMA) once daily inhaler. He experiences exertional dyspnea requiring rest and seeks to improve exercise tolerance. He had reassuring stress echo in May 2024, two months ago. He is interested in trying a long-actingcombination albuterol-steroid inhaler. He reports improved stamina after a period of vertigo last year that limited exercise for some time. He experiences abdominal distention during walks and has been walking consistently for 5-6 weeks, incorporating weightlifting. This is his belly fat. He declines weight loss medications. He is concerned about persistent hypertension despite exercise. He consumed Mountain Dew this morning and before his sleep specialist visit. He exhausted his diltiazem 240 mg supply. He has an upcoming pain management appointment and is on duloxetine 60 mg for thigh pain due to spinal canal narrowing. He requests a temporary hold on duloxetine refills to use his surplus of 30 mg tablets. Objective Vitals: 07/31/24 1106 07/31/24 1110 BP: (!) 137/98 (!) 144/101 BP Location: Right arm Left arm Patient Position: Sitting Sitting BP Cuff Size: Large adult Adult long Pulse: 66 69 Resp: 20 Temp: 36.4 ??C (97.6 ??F) TempSrc: Temporal SpO2: 97% Weight: 124 kg (272 lb 9.6 oz) Physical Exam General Appearance: Normal. Respiratory: Clear to auscultation, no wheezing, rales, or rhonchi. Cardiovascular: Regular rate and rhythm, no murmurs, rubs, or gallops. Results - Imaging: - Chest x-ray May 2024: Normal - Treadmill Stress ECHO May 2024: no inducible myocardial ischemia though reduced exercise capacity at time of test did not reach stress heart rate level. - Spirometry: - Mild obstruction documented in this encounter Plan of Treatment Upcoming Encounters Date Type Department Care Team (Late st Contact Info) Description 08/26/2024 3:20 PM CDT Office Visit [facility] [address] [address] Kirit Torres MD [address] [place] [phone] 08/27/2024 2:40 PM CDT Office Visit [facility] [address] [place] [address] Kirit Torres MD [address] [facility] [address] [place] [address] 09/02/2024 11:30 AM CDT Office Visit [facility] [address], [place] [address] [place] [address] [place] [address] 12/08/2024 8:00 AM SMUDGER Office Visit [facility] [address] 12/11/2024 8:00 AM SMUDGER Office Visit [address] [address] 12/15/2024 8:20 AM SMUDGER Office Visit [address] [address] Kirit Torres MD [address] [phone] documented as of this encounter Visit Diagnoses Diagnosis Obesity, morbid (HCC)- Primary Morbid obesity Paroxysmal atrial fibrillation (HCC) Atrial fibrillation Essential hypertension Unspecified essential hypertension Primary hypertension Unspecified essential hypertension Chronic obstructive pulmonary disease, unspecified COPD type (HCC) Wheezing Lumbar radicular syndrome Thoracic or lumbosacral neuritis or radiculitis, unspecified documented in this encounter Care Teams Cardiovascular Physician Assistant Relationship Specialty Start Date End Date Kirit Torres MD [address] [phone] PCP - General 11/23/22 documented as of this encounter
--- OUTSIDE RECORDS SUMMARY | 2024-08-14 09:00 | XMS_ITS | Encounter Summary ---
Author Organization [facility] er Address [address] [place] [address] Care Team Providers Care Adobe Ball Mixer Name Role Phone Kirit Brooks MD Primary Care Provider + [phone] Reason for Visit * Reason Comments Nurse blood pressure visit Encounter Details Date Type Department Care Team (Latest Contact Info) Description 08/14/2024 9:00 AM CDT Clinical Support [facility] [address] [place] [address] Primary hypertension (Primary Dx); Essential hypertension Social History Tobacco Use Types Packs/Day Years Used Date Smoking Tobacco: Former Cigarettes 0.4 2 1 835 - 1976 Smokeless Tobacco: Never Alcohol Use Standard Drinks/Week Comments No 0 (1 standard drink = 0.6 oz pur e alcohol) sober since 1999 B1300 Health Literacy Answer Date Recor ded How often do you need to hav e someone help you when you read instructions, pamphlets, or other written material from your doctor or pharmacy? Never 06/10/2024 [facility] Utilities Answer Date Recorded In the past 12 months has [facility] [employer], oil, or water [employer] threatened to shut off services in your [...] 06/10/2024 How often do you attend chur or spiritism services? More than 4 times per year 06/10/2024 Do you belong to any clubs o r organizations such as temple groups, unions, fraternal or athletic groups, or [...] Date Recorded PHQ-9 Total Score 1 06/10/2024 [facility] of Occupat ional Health - Occupational Stress [...] place to sleep or slept in a fci (including now)? No 12/08/2022 Housing Stability Vital Sign Answer Anup e Recorded In the last 12 months, was t here a time when you were not able to pay the mortgage or rent on time? No 06/10/2024 In the past 12 months, how m any times have you moved where you were living? 0 06/10/2024 At any time in the past 12 m onths, were you homeless or living in a fci (including now)? No 06/10/2024 Interpersonal Safety Questionnaire Answer Date Recorded How often does anyone, jaydon rich family and friends, physically hurt you? Never 02/18/2024 How often does anyone, jaydon rich family and friends, insult or talk down to you? Never 02/18/2024 How often does anyone, jaydon rich family and friends, threaten you with harm? 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 02/06/1976 02/05/18 83 documented as of this encounter Last Filed Vital Signs Vital Sign Reading Time Taken Comments Blood Pressure 133/91 08/14/2024 8:29 AM CDT Pulse 71 08/14/2024 8:29 AM CDT Temperature - - Respiratory Rate - - Oxygen Saturation - - Inhaled Oxygen Concentration - - Weight - - Height - - Body Mass Index - - documented in this encounter Progress Notes * Whit Gutierrez LPN - 08/14/2024 9:00 AM CDT Nurse Note Routine BP Check Patient presents today for BP check per request of: PCP BP Readings from Last 4 Encounters: 08/14/24 (!) 133/91 07/31/24 (!) 144/101 07/10/24 124/89 06/25/24 (!) 150/96 Medication Review: Patients medication list reviewed. Patient is compliant with medications Home BP Readings: Personal BP Device (patient did not bring device to this visit) Vitals: 08/14/24 0826 08/14/24 0829 BP: (!) 128/95 (!) 133/91 BP Location: Right arm Left arm Patient Position: Sitting Sitting BP Cuff Size: Large adult Large adult Pulse: 69 71 Blood pressure checked automated using [facility] device only Plan: !! Patient's blood pressure remains out-of-goal after two BP nurse visits. Patient instructed to schedule an appointment with a clinician to discuss blood pressure within 14 days. Note routed to PCP. The patient verbalized understanding but declined to follow the recommended plan. Reason: Patient states would rather wait until his annual exam and will go to a clinic in [place] in a few weeks to have BP checked. Patient Education: Patient had previous education reinforced and reviewed. Patient provided with additional [facility]-approved materials including: - None Long-Term Medications Medication Sig Dispense Refill albuterol HFA (Ventolin HFA) 108 (90 Base) MCG/ACT inhaler Inhale 2 puffs every 4 (four) hours if needed for wheezing or shortness of breath 18 g 2 dilTIAZem (TIAZAC) 240 MG 24 hr capsule Take 1 capsule (240 mg total) by mouth 1 (one) time each day 90 capsule 3 DULoxetine (CYMBALTA) [address] capsule TAKE 1 CAPSULE(60 MG) BY MOUTH 1 TIME EACH DAY. DO NOT CRUSHOR CHEW 90 capsule 1 famotidine (PEPCID/ZANTAC 360) 20 MG tablet TAKE 1 TABLET(20 MG) BY MOUTH TWICE DAILY 180 tablet 3 Fluticasone-Salmeterol (ADVAIR DISKUS) 100-50 MCG/ACT diskus inhaler Inhale 1 puff 2 (two) times a day Rinse mouth with water after use to reduce aftertaste and incidence of candidiasis. Do not swallow. 60 each 2 hydroCHLOROthiazide (HYDRODIURIL) 25 MG tablet Take 1 tablet (25 mg total) by mouth 1 (one) time each day 90 tablet 3 rivaroxaban (Xarelto) 20 MG tablet Take 1 tablet (20 mg total) by mouth 1 (one) time each day 90 tablet 3 valsartan (Diovan) 160 MG tablet Take 1 tablet (160 mg total) by mouth 1 (one) time each day 90 tablet 3 * Kirit Brooks MD - 08/14/2024 9:00 AM CDT Diagnosis Plan 1. Primary hypertension valsartan (Diovan) 160 MG tablet Basic metabolic panel 2. Essential hypertension Spoke with patient over phone. He is feeling well. He will increase his Valsartan to 320 mg (by taking two tablets of 160 mg tablets). Follow up in 2 weeks for BP recheck and BMP. Call to schedule BPrecheck with nursing and lab visit please. * Florinda Sarabia LPN - 08/14/2024 9:00 AM CDT Nurse Note Forwarded telephone encounter to scheduling. documented in this encounter Miscellaneous Notes * Addendum Note - Kirit Brooks MD - 08/14/2024 9:00 AM CDTAddended by: KIRIT BROOKS on: 08/14/2024 08:53 AM Modules accepted: Orders documented in this encounter Plan of Treatment Upcoming Encounters Date Type Department Care Team (Late st Contact Info) Description 08/26/2024 3:20 PM CDT Office Visit [facility] [address] Kirit Brooks MD [address] [phone] 08/27/2024 2:40 PM CDT Office Visit [facility] [address] Kirit Brooks MD [address] [address] 09/02/2024 11:30 AM CDT Office Visit [facility] [address] [place] [address] [place] [address] [place] [phone] 12/08/2024 8:00 AM RESTAURANT RECRUITER Office Visit [facility] [address] 12/11/2024 8:00 AM RESTAURANT RECRUITER Office Visit [facility] [address] 12/15/2024 8:20 AM RESTAURANT RECRUITER Office Visit [address] [address] Kirit Brooks MD [address] [phone] documented as of this encounter Results * (ABNORMAL) Basic metabolic panel (08/25/2024 8:03 AM CDT) Sodium 137 135 - 145 mmol/L 08/25/2024 8:26 AM CDT [facility] Potassium 4.6 3.5 - 5.1 mmol/L 08/25/2024 8:26 AM CDT [facility] Chloride 104 98 - 107 mmol/L 08/25/2024 8:26 AM CDT [facility] CO2 29 22 - 31 mmol/L 08/25/2024 8:26 AM CDT [facility] Creatinine 1.6(H) 0.6 - 1.4 mg/dL 08/25/2024 8:26 AM CDT [facility] BUN 23 5 - 25 mg/dL 08/25/2024 8:26 AM CDT [facility] Glucose 115(H) 70 - 100 mg/dL 08/25/2024 8:26 AM CDT [facility] Calcium, Total,S 10.5(H) 8.4 - 10.2 mg/dL 08/25/2024 8:26 AM CDT [facility] Anion Gap 4 4 - 13 08/25/2024 8:26 AM CDT [facility] Comment: The anion gap is calculated with the following formula: AGAP = Na ? (Cl + CO2). Fasting? Yes 08/25/2024 8:04 AM CDT [facility] Blood (Blood, Venous) 08/25/2024 8:03 AM CDT 08/25/2024 8:03 AM CDT us Kirit Brooks MD LAB BLOOD ORDERABLES Final R esult Ayah [facility] [address] [place] [address] documented in this encounter Visit Diagnoses Diagnosis Primary hypertension- Primary Unspecified essential hypertension Essential hypertension Unspecified essential hypertension documented in this encounter Care Teams Adobe Ball Mixer Relationship Specialty Start Date End Date Kirit Brooks MD [address] [place] [address] PCP - General 11/23/22 documented as of this encounter
--- OUTSIDE RECORDS SUMMARY | 2024-08-25 08:00 | XMS_ITS | Encounter Summary ---
Author Organization [facility] er Address [address] [place] [address] Care Team Providers Care Metal Melter Name Role Phone Kirit Torres MD Primary Care Provider + [phone] Encounter Details Date Type Department Care Team (Late st Contact Info) Description 08/25/2024 8:00 AM CDT Lab [place] [address] [place] [address] Primary hypertension Social History Tobacco Use Types Packs/Day Years Used Date Smoking Tobacco: Former Cigarettes 0.4 2 1 975 - 1976 Smokeless Tobacco: Never Alcohol Use Standard Drinks/Week Comments No 0 (1 standard drink = 0.6 oz pur e alcohol) sober since 1999 [id number] Health Literacy Answer Date Recor ded How often do you need to hav e someone help you when you read instructions, pamphlets, or other written material from your doctor or pharmacy? Never 06/10/2024 [facility] Utilities Answer Date Recorded In the past 12 months has [facility], gas, oil, or water [employer] threatened to shut off services in your [...] How often do you attend chur or temple services? More than 4 times per year 06/10/2024 Do you belong to any clubs o r organizations such as latter-day groups, unions, fraternal or athletic groups, or [...] Date Recorded PHQ-9 Total Score 1 06/10/2024 [facility] - Occupational Stress Questionnaire Answer Date [...] place to sleep or slept in a detention (including now)? No 12/08/2022 Housing Stability Vital Sign Answer Anup e Recorded In the last 12 months, was t here a time when you were not able to pay the mortgage or rent on time? No 06/10/2024 In the past 12 months, how m any times have you moved where you were living? 0 06/10/2024 At any time in the past 12 m [facility], were you homeless or living in a detention (including now)? No 06/10/2024 Interpersonal Safety Questionnaire Answer Date Recorded How often does anyone, jaydon rich family and friends, physically hurt you? Never 02/18/2024 How often does anyone, jaydon rich family and friends, insult or talk down to you? Never 02/18/2024 How often does anyone, jaydon rich family and friends, threaten you with harm? 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 02/06/1976 02/05/18 83 documented as of this encounter Plan of Treatment Upcoming Encounters Date Type Department Care Team (Late st Contact Info) Description 08/26/2024 3:20 PM CDT Office Visit [address] [address] Kirit Torres MD [address] [phone] 08/27/2024 2:40 PM CDT Office Visit [address] [address] Kirit Torres MD [address] [phone] 09/02/2024 11:30 AM CDT Office Visit Pain Management [address] [place] [address] [place] [address] [place] [phone] 12/08/2024 8:00 AM BLOW OFF WORKER Office Visit [address] [address] 12/11/2024 8:00 AM BLOW OFF WORKER Office Visit [address] [address] 12/15/2024 8:20 AM BLOW OFF WORKER Office Visit [address] [address] Kirit Torres MD [address] [phone] documented as of this encounter Procedures Procedure Name Priority Date/Time Associated Diagnosis Comments ESTIMATED GLOMERULAR FILTRATION RATE (EGFR) Routine 08/25/2024 8:03 AM CDT Primary hypertension BASIC METABOLIC PANEL Routine 08/25/2024 8:03 AM CDT Primary hypertension documented in this encounter Results * (ABNORMAL) Estimated Glomerular Filtration Rate (eGFR) (08/25/2024 8:03 AM CDT) Estimated Glomerular Filtration Rate (eGFR) 47(A) 08/25/2024 8:26 AM CDT [facility] Comment: GFR calculated from serum creatinine value Chronic Kidney Disease less than 60 mL/min/1.73 m2 Kidney Failure less than 15 mL/min/1.73 m2 Note: effective 02/01/2022: 2020 CKD-EPI Equation used 08/25/2024 8:03 AM CDT 08/25/2024 8:03 AM CDT Kirit Torres MD LAB BLOOD ORDERABLES Final R esult [facility] [address] [place] [id number] * (ABNORMAL) Basic metabolic panel (08/25/2024 8:03 AM CDT) Pathologist [facility] Sodium 137 135 - 145 mmol/L 08/25/2024 8:26 AM CDT [facility] [place] Potassium 4.6 3.5 - 5.1 mmol/L 08/25/2024 8:26 AM CDT [facility] [place] Chloride 104 98 - 107 mmol/L 08/25/2024 8:26 AM CDT [facility] [place] CO2 29 22 - 31 mmol/L 08/25/2024 8:26 AM CDT [facility] [place] Creatinine 1.6(H) 0.6 - 1.4 mg/dL 08/25/2024 8:26 AM CDT [facility] [place] BUN 23 5 - 25 mg/dL 08/25/2024 8:26 AM CDT [facility] [place] Glucose 115(H) 70 - 100 mg/dL 08/25/2024 8:26 AM CDT [facility] [place] Calcium, Total,S 10.5(H) 8.4 - 10.2 mg/dL 08/25/2024 8:26 AM CDT [facility] [place] Anion Gap 4 4 - 13 08/25/2024 8:26 AM CDT [facility] [place] Comment: The anion gap is calculated with the following formula: AGAP = Na ? (Cl + CO2). Fasting? Yes 08/25/2024 8:04 AM CDT [facility] [place] Blood (Blood, Venous) 08/25/2024 8:03 AM CDT 08/25/2024 8:03 AM CDT us Kirit Torres MD LAB BLOOD ORDERABLES Final R esult [facility] [place] [address] [place] [address] documented in this encounter Visit Diagnoses Diagnosis Primary hypertension Unspecified essential hypertension documented in this encounter Care Teams Metal Melter Relationship Specialty Start Date End Date Kirit Torres MD [address] [place] [address] PCP - General 11/23/22 documented as of this encounter
--- OUTSIDE RECORDS SUMMARY | 2024-08-25 08:20 | XMS_ITS | Encounter Summary ---
Author Organization [facility] er Address [address] [place] [address] Care Team Providers Care Supervisor Inventory Merchandising Name Role Phone Kirit Torres MD Primary Care Provider + [phone] Reason for Visit * Reason Comments Blood Pressure Check Encounter Details Date Type Department Care Team (Latest Contact Info) Description 08/25/2024 8:20 AM CDT Clinical Support [place] [address] [place] [address] Essential hypertension (Primary Dx) Social History Tobacco Use Types Packs/Day Years [...] from your doctor or pharmacy? Never 06/10/2024 [facility] Utilities Answer Date Recorded In the past 12 months has [facility] [employer], gas, oil, or water [employer] threatened to shut off services in your [...] How often do you attend chur or rastafarian services? More than 4 times per year 06/10/2024 Do you belong to any clubs o r organizations such as yazidi groups, unions, fraternal or athletic groups, or [...] Date Recorded PHQ-9 Total Score 1 06/10/2024 [facility] - Occupational Stress [...] place to sleep or slept in a skilled nursing (including now)? No 12/08/2022 Housing Stability Vital Sign Answer Anup e Recorded In the last 12 months, was t here a time when you were not able to pay the mortgage or rent on time? No 06/10/2024 In the past 12 months, how m any times have you moved where you were living? 0 06/10/2024 At any time in the past 12 m [facility], were you homeless or living in a skilled nursing (including now)? 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 Patient is compliant with medications Home BP Readings: Personal BP Device (patient did not bring device to this visit) There were no vitals filed for this visit. Blood pressure checked automated using [facility] device only Plan: Patient's blood pressure is within goal (< 140/90 mmHg). Patient instructed to continue routine care with PCP. The patient verbalized understanding and agreed with the recommended plan. Patient Education: Patient had previous education reinforced and reviewed. Patient provided with additional [facility]-approved materials including: - None Long-Term Medications Medication [...] 3 valsartan (Diovan) 160 MG tablet Take 2 tablets (320 mg total) by mouth 1 (one) time each day documented in this encounter Plan of Treatment Upcoming Encounters Date Type Department Care Team (Late st Contact Info) Description 08/26/2024 3:20 PM CDT Office Visit [address] [address] [place] [address] [place] [phone] 08/27/2024 2:40 PM CDT Office Visit [address] [address] [place] [address] [place] [phone] 09/02/2024 11:30 AM CDT Office Visit Pain Management [address] [place] [address] [place] [address] [place] [phone] 12/08/2024 8:00 AM RN CLINICAL REVIEW Office Visit [address] [address] 12/11/2024 8:00 AM RN CLINICAL REVIEW Office Visit [address] [address] 12/15/2024 8:20 AM RN CLINICAL REVIEW Office Visit [address] [address] Kirit Torres MD [address] [place] [address] documented as of this encounter Visit Diagnoses Diagnosis Essential hypertension- Primary Unspecified essential hypertension documented in this encounter Care Teams Supervisor Inventory Merchandising Relationship Specialty Start Date End Date Kirit Torres MD [address] [place] [address] PCP - General 11/23/22 documented as of this encounter
--- OUTSIDE RECORDS SUMMARY | 2024-08-26 11:06 | XMS_ITS | Clinical Summary ---
Author Organization [facility] Address [address] [place] [address] Care Team Providers Care Middle School History Teacher Name Role Phone Unavailable Primary Care Provider Unavailabl e Source Comments Patient records contain information from all sites at [facility]. For routine questions regarding patient records, call [phone] during business hours, M-F 8:00 AM - 5:00 PM Central Time. 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 Gender Identity Not on file Sexual Orientation Not on file Last Filed Vital Signs Vital Sign Reading Time Taken Comments Blood Pressure 139/90 04/21/2019 10:20 AM CDT Pulse 56 04/21/2019 10:20 AM CDT Temperature - - Respiratory Rate - - Oxygen Saturation 98% 04/21/2019 10:20 AM CDT Inhaled Oxygen Concentration - - Weight - - Height - - Body Mass Index - - Plan of Treatment Health Maintenance Due Date Last Done Comments CT Colonography 1958 Cologuard 1960 Colonoscopy 1960 Colorectal Cancer Screening 1958 FIT 1958 Fasting Glucose for Diabetes Screening 1958 Pneumococcal vaccine (50+ years) (2 of 2 - PCV20 or PCV21) 11/04/2020 11/05/2019 COVID-19 Vaccine ( season) 2023 05/04/2023, 10/15/2021, 05/18/2021, Additional history exists Depression Screening (Annual PHQ-2) 02/06/2024 Fall Risk Screen (Annual) 02/06/2024 Influenza Vaccine (#1) 2024 3, 10/15/2021, 11/02/2020, Additional history exists DTaP,Tdap,and Td Vaccines (2 - Td or Tdap) 01/06/2028 01/05/2018, 08/24/1997 Hepatitis C Screening Completed 01/09/2001 Zoster Vaccines Completed 03/20/2019, 12/20/2018 IPV Vaccines Aged Out No longer eligi ble based on patient's age to complete this topic Medical Devices Implanted Type Area Ssrs Developer Device Identifier Shelf Expiration Date Model / Serial / Lot Conversions - Default Historical Implant Device Implanted:12/26 (Quantity not on file) Hip Implant Right: Hip Description:Body Location - Hip R. Device Status Text - Hip Imp. Insurance [facility]
--- OUTSIDE RECORDS SUMMARY | 2024-08-26 11:06 | XMS_ITS | Clinical Summary ---
Author Organization [employer] [facility] Address [address] [place] [address] Care Team Providers Care Cobol Application Developer Name Role Phone Pcp, No Primary Care Provider Unavailabl e Allergies No known active allergies Medications DULoxetine (CYMBALTA) 60 mg Delayed-release capsule TAKE 1 CAPSULE BY MOUTH EVERY DAY. TAKE AFTER COMPLETING A WEEK OF 30 MG DAILY AND CONTINUE 3 Active finasteride (PROSCAR) 5 mg tablet Take 10 mg by mouth every morning. Active metoprolol succinate (TOPROL XL) 100 mg Sustained-Relea se tablet Take 100 mg by mouth once daily. Active Xarelto 20 mg tablet Take 20 mg by mouth once daily with evening meal. 3 Active valsartan (DIOVAN) 80 mg tablet Take 80 mg by mouth once daily. Active Active Problems Problem Noted Date Diagnosed Date Atrial fibrillation, controlled 05/11/2023 Social History Tobacco Use Types Packs/Day Years Used Date Smoking Tobacco: Never Smokeless Tobacco: Never Tobacco Cessation:Counseling Given: Yes Alcohol Use Standard Drinks/Week Comments Not Currently 0 (1 standard drink = 0.6 oz pur e alcohol) Social Connections Answer Date Recorded Do you often feel lonely or isolated from those around you? 0 05/11/2023 Financial Resource Strain Answer Date R ecorded Difficulty of Paying Living Expenses 3 05/11/2023 Difficulty of Paying Living Expenses Not on file 05/11/2023 Food Insecurity Answer Date Recorded Do you worry your food will run out before you are able to buy more? 1 05/11/2023 Transportation Needs Answer Date Record ed Does lack of transportation keep you from medica l appointments? 1 05/11/2023 Does lack of transportation keep you from work, meetings or getting things that you need? 1 05/11/2023 Housing Stability Answer Date Recorded What is your housing situation today? 1 05/11/2023 Utilities Answer Date Recorded Do you have trouble paying f or utilities (for example, heat, electricity, water, phone)? 1 05/11/2023 Sex and Gender Information Value Date Recorded Sex Assigned at Not on file Legal Sex Male 10:41 AM CDT Gender Identity Not on file Sexual Orientation Not on file Obstetrics History Last Filed Vital Signs Vital Sign Reading Time Taken Comments Blood Pressure 157/91 05/11/2023 11:15 AM CDT Pulse 48 05/11/2023 11:13 AM CDT Temperature 36.7 C (98.1 F) 05/11/2023 11:13 AM CDT Respiratory Rate - - Oxygen Saturation 97% 05/11/2023 11: 13 AM CDT Inhaled Oxygen Concentration - - Weight 121.9 kg (268 lb 12.8 oz) 2023 11:09 AM CDT Height - - Body Mass Index - - Plan of Treatment Health Maintenance Due Date Last Done Comments Tetanus booster 1969 Depression screening for age 12+ 1970 BMI (ht and wt on same day) for age 18+ 1976 Hepatitis C screening for age 18-79 1976 Pneumococcal series for age 50+ (1 of 2 - PCV) 1977 Colonoscopy through age 75 04/16/2003 Lipids for age 45-75 04/16/2003 Zoster (shingles) series for age 50+ (1 of 2) 2008 Medicare Wellness for age 65+ 04/16/2023 Influenza Vaccine (#1) 2024 RSV vaccine for adults or (1 - 1-dose 75+ series) 2033 COVID-19 vaccine series Completed 05/30/19 25, 11/26/2023, 05/04/2023, Additional history exists Hepatitis B series for 19+ Aged Out N o longer eligible based on patient's age to complete this topic Insurance [employer]AGE MR Care Teams Cobol Application Developer Relationship Specialty Start Date End Date Pcp, No . PCP - General 05/11/23
[2024-08-26 11:11] VITALS: BP 104/73; PULSE 92; RESP 28; TEMP 36.4; O2SAT 96; BMI 38.1
--- NOTE | 2024-08-26 11:34 | ED.GENADULT ---
HPI - General Adult General Chief complaint: Shortness of Breath/Dyspnea Stated complaint: shortness of breath, tightness on chest, feelsweak Time Seen by Provider: 08/26/24 11:20 History of Present Illness HPI narrative: Arrives with complaints of fatigue and SOB , has a history of a-fib and is concerned that is what the problem is. SOB on exertion in triage, denies pain or other complaints, ABCs intact. 64-year-old man presenting to the emergency department with concern of shortness of breath or more specifically easy, exertional fatigue. He describes this going on over the last 6 months ever since he had an episode of vertiginous symptoms combined with vomiting and diarrhea. He has intermittently felt discoordinated. Does have regular visits with his primary care provider and it sounds like may have even seen physical therapy. Recently was diagnosed with mild COPD. No increased cough. Did try his inhaler today with uncertain relief. Does not sound like he smokes or drinks alcohol. I note him to be a little hoarse when we were talking and he says that he notes that his throat is little congested when he says his Rosary. He is frustrated in this easy fatigue. This weekend 3 days ago had to cut back his usual 3 mile walk to 1 mi. and also in the hot tub I believe that same day he started to feel some chest pressure and tightness shortness of breath that he would attribute to being in atrial fibrillation. He is chronically anticoagulated with Eliquis. Worried that he might be in atrial fibrillation here today. Admits that over the last 6 months or so he has also gained 24 or so lb. He has cut back on 3 large bottles of Mountain Dew daily now down to 1. I believe this is 6 L now down to 2 L. admits that his belly has been often bloated when he is up and around. Feels like it is lessened as he has cut back on his Mountain Dew. He has been in close contact with his primary care provider he reports [phone] dollars worth of medical bills over the last number of months thankfully that is mostly covered by insurance. He reports having had an echocardiogram and denies heart failure. Was discontinued from Toprol but increased and the losartan. He does have sleep apnea and is modifying fit of his oral device but it does sound like it works. He is up multiple times to urinate due to what sounds like furosemide but would prefer to take that in the evening than during the day regardless. Does feel like he gets good sleep. Did have 2 days a while back of cardiac monitoring for arrhythmia but says it was negative. Related Data Home Medications ?Medication ?Instructions ?Recorded ?Confirmed rivaroxaban 20 mg tablet 20 mg PO DAILY 10/18/21 08/26/24 duloxetine 30 mg capsule,delayed 30 mg PO QDAY 12/26/22 08/26/24 release valsartan PO 12/26/22 12/26/22 albuterol sulfate 90 mcg/actuation 2 puff inhalation Q4H PRN 08/26/24 08/26/24 aerosol inhaler (Ventolin HFA) diltiazem HCl 120 mg capsule,24 120 mg PO DAILY 08/26/24 08/26/24 hr,extended release diltiazem HCl 240 mg capsule,24 240 mg PO DAILY 08/26/24 08/26/24 hr,extended release famotidine 20 mg tablet 20 mg PO BID 08/26/24 08/26/24 finasteride 1 mg tablet 1 mg PO DAILY 08/26/24 08/26/24 fluticasone 100 mcg-salmeterol 50 inhalation 08/26/24 mcg/dose blistr powdr for inhalation (Karinaela Inhub) furosemide 20 mg tablet 20 mg PO DAILY 08/26/24 08/26/24 hydrochlorothiazide 12.5 mg tablet 12.5 mg PO DAILY 08/26/24 08/26/24 hydrochlorothiazide 25 mg tablet 25 mg PO DAILY 08/26/24 08/26/24 metoprolol succinate 25 mg 25 mg PO DAILY 08/26/24 08/26/24 tablet,extended release 24 hr umeclidinium 62.5 mcg/actuation 1 inh inhalation ONCE 08/26/24 08/26/24 blister powder for inhalation (Incruse Ellipta) valsartan 160 mg tablet 160 mg PO DAILY 08/26/24 08/26/24 valsartan 80 mg tablet 80 mg PO DAILY blood pressure 08/26/24 08/26/24 Previous Rx's ?Medication ?Instructions ?Recorded meclizine 25 mg tablet 25 mg PO QID #20 tabs 05/11/23 Allergies Allergy/AdvReac Type Severity Reaction Status Date / Time No Known Drug Allergies Allergy Verified 08/26/24 11:10 Review of Systems Status of ROS: Reports: 6 or more systems reviewed and unremarkable except as noted in History and below [facility] Medical History Encounter for follow-up ?Z09 - Encounter for follow-up examination after completed treatment for conditions other than malignant neoplasm (ICD-10) History of cardioversion ?Z98.890 - Other specified postprocedural states (ICD-10) History of back problems Sleep apnea ?G47.30 - Sleep apnea, unspecified (ICD-10) Stroke ?I63.9 - Cerebral infarction, unspecified (ICD-10) Surgical History H/O umbilical hernia repair (~2018) ?Z98.890 - Other specified postprocedural states (ICD-10) ?Z87.19 - Personal history of other diseases of the digestive system (ICD-10) History of total right hip replacement (~11/2015) ?Z96.641 - Presence of right artificial hip joint (ICD-10) Family History Mother Stroke Sister Diabetes Other Prostate cancer Social History Smoking Status: Never smoker Do you use any of these nicotine containing products: None Second hand tobacco smoke exposure: No How often do you have a drink containing alcohol: never AUDIT-C Alcohol total score: 0 Non-prescribed substance use: denies use Exam Narrative: Exam Narrative: Very pleasant. Talkative. Slightly hoarse voice. Breathing easily. Lungs are clear other than some very trace wheeze in the left mid-lung audible with forced exhalation. Heart in regular rate and rhythm. Distant. Skin is quite tanned. Does have some tattoos. He is well-perfused. Has no lower extremity edema. Abdomen is overweight, a little tense. Nontender. Const: Vital Signs, click to edit/add: Vital Signs - 24 hr 08/26/24 11:11 Temperature 97.6 F Pulse Rate [Pulse Oximeter] 92 Respiratory Rate 28 H Blood Pressure [Ri ght Upper Arm] 104/73 Pulse Oximetry 96 Oxygen Delivery Me thod Room Air Documenting provider has reviewed patient's vital signs: yes Course Vital Signs Vital signs: Initial Vital Signs Temperature 97.6 F 08/26/24 11:11 Temperature Source Temporal Artery Scan 08/26/24 11:11 Pulse Rate 92 08/26/24 11:11 Respiratory Rate 28 H 08/26/24 11:11 Blood Pressure 104/73 08/26/24 11:11 Blood Pressure Mean 83 08/26/24 11:11 Pulse Oximetry 96 08/26/24 11:11 Oxygen Delivery Method Room Air 08/26/24 11:11 Vital Signs Temperature 97.6 F 08/26/24 11:11 Pulse Rate 92 08/26/24 11:11 Respiratory Rate 28 H 08/26/24 11:11 Blood Pressure 104/73 08/26/24 11:11 Pulse Oximetry 96 08/26/24 11:11 Oxygen Delivery Method Room Air 08/26/24 11:11 Temperature 97.6 F 08/26/24 11:11 Pulse Rate 92 08/26/24 11:11 Respiratory Rate 28 H 08/26/24 11:11 Blood Pressure 104/73 08/26/24 11:11 Pulse Oximetry 96 08/26/24 11:11 Oxygen Delivery Method Room Air 08/26/24 11:11 Medical Decision Making MDM Narrative Medical decision making narrative: Multifactorial reasons for having trouble with exertion. Poor sleep, COPD in this heat and humidity, intermittent atrial fibrillation, medication related, weight gain among others. Vitals are reassuring here today. And he does note that he has follow-up that he intends to make in about 3 hours with his primary care provider. It seems that primary concern is whether not he would be in atrial fibrillation. We have done an EKG here today which I personally reviewed showing normal sinus rhythm at a rate of 77. And it does look similar to prior. This is reassuring. He has had labs done yesterday which also indicates some problem with his liver that he intends to discuss today yet with primary care provider. Chronic inflammatory change from dietary or if there is some underlying liver problem I suppose could be contributing to chronic fatigue. Appears safe for discharge at this time. No events on physics teacher during time of monitoring in the emergency department. See patient discharge plan for further discussion I think you have the right mind set to feel better. It was a pleasure talking with you. As I said, you have lot of balls in the air; things that could be affecting how you are feeling. Please continue regular conversation with your healthcare provider making plans toward better health. At least here today, you are not in atrial fibrillation. Medical Records Medical records reviewed: Yes I reviewed the patient's medical records Discharge Plan Discharge Clinical Impression: Fatigue Patient Disposition: Home, Self-Care Condition: Stable Additional Instructions: I think you have the right mind set to feel better. It was a pleasure talking with you. As I said, you have lot of balls in the air; things that could be affecting how you are feeling. Please continue regular conversation with your healthcare provider making plans toward better health. At least here today, you are not in atrial fibrillation. Prescriptions: No Action rivaroxaban 20 mg tablet 20 mg PO DAILY Rx Instructions: WITH MEAL valsartan PO duloxetine 30 mg capsule,delayed release(DR/EC) 30 mg PO QDAY diltiazem HCl 240 mg capsule,extended release 24hr 240 mg PO DAILY valsartan 80 mg tablet 80 mg PO DAILY famotidine 20 mg tablet 20 mg PO BID diltiazem HCl 120 mg capsule,extended release 24hr 120 mg PO DAILY hydrochlorothiazide 25 mg tablet 25 mg PO DAILY furosemide 20 mg tablet 20 mg PO DAILY metoprolol succinate 25 mg tablet extended release 24 hr 25 mg PO DAILY fluticasone propion-salmeterol [Wixela Inhub] 100-50 mcg/dose blister with device INHALATION Patient Comments: [NO ORIGINAL SIG] albuterol sulfate [Ventolin HFA] 90 mcg/actuation HFA aerosol inhaler 2 puff INHALATION Q4H PRN finasteride 1 mg tablet 1 mg PO DAILY valsartan 160 mg tablet 160 mg PO DAILY hydrochlorothiazide 12.5 mg tablet 12.5 mg PO DAILY Incruse Ellipta 62.5 mcg/actuation blister with device 1 inh INHALATION ONCE meclizine 25 mg tablet 25 mg PO QID Qty: 20 0RF Follow Up/Referrals: Tera Coombs MD [Primary Care Provider, Family Practice] Stand Alone Forms: [employer] Info Instructions
--- OUTSIDE RECORDS SUMMARY | 2024-08-26 12:38 | XMS_ITS | Encounter Summary ---
Author Organization [facility] er Address [address] [place] [address] Care Team Providers Care Manager Ct Name Role Phone Kirit Torres MD Primary Care Provider [phone] Encounter Details Date Type Department Care Team (Late st Contact Info) Description 08/15/2022 Telephone [facility] [address] [place] [address] VaishnaviGurmeet mckeon MD [address] [place] [address] Social History Tobacco Use Types Packs/Day Years Used Date Smoking Tobacco: Former Cigarettes Q uit: 1977 Smokeless Tobacco: Never Alcohol Use Standard Drinks/Week Comments No 0 (1 standard drink = 0.6 oz pur e alcohol) sober since 1999 AUDIT-C Answer Date Recorded Q1: How often do you have a drink containing alc ohol? Never 04/01/2020 Average Number of Drinks Not on file 021 Frequency of Binge Drinking Not on file 03/09 PHQ-2 Answer Date Recorded PHQ-9 Total Score 0 12/07/2021 Education Answer Date Recorded What is the highest level of school you have completed or the highest degree you have received? 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 Not on file Not on file Not on file documented as of this encounter Plan of Treatment Upcoming Encounters Date Type Department Care Team (Late st Contact Info) Description 08/26/2024 3:20 PM CDT Office Visit [facility] Hung [address] [place] [address] [place] [address] Kirit Torres MD [address] [place] [address] 08/27/2024 2:40 PM CDT Office Visit [facility] Hung [address] [place] [address] [place] [address] Kirit Torres MD [address] [place] [address] 09/02/2024 11:30 AM CDT Office Visit [facility] [address] [place] [address] [place] [address] [place] [phone] 12/08/2024 8:00 AM LOAD DROPPER Office Visit Damian Hung [address] [place] [address] 12/11/2024 8:00 AM LOAD DROPPER Office Visit Damian Hung [address] [place] [address] 12/15/2024 8:20 AM LOAD DROPPER Office Visit Damian Hung [address] [place] [address] Kirit Torres MD [address] [address] documented as of this encounter Visit Diagnoses Not on filedocumented in this encounter Care Teams Manager Ct Relationship Specialty Start Date End Date Kirit Torres MD [address] [place] [address] [place] [address] PCP - General 11/23/22 documented as of this encounter
--- OUTSIDE RECORDS SUMMARY | 2024-08-26 12:38 | XMS_ITS | Encounter Summary ---
Author Organization [facility] er Address [address] [place] [address] Care Team Providers Care Clutch Assembler Name Role Phone Kirit Torres MD Primary Care Provider Encounter Details Date Type Department Care Team (Late Contact Info) Description 12/07/2017 Telephone [facility] [address] [place] [phone] Amol Mei MD [address] [place] [address] Social History Tobacco Use Types Packs/Day Years Used Date Smoking Tobacco: Never Smokeless Tobacco: Never Alcohol Use Standard Drinks/Week Comments No 0 (1 standard drink = 0.6 oz pur e alcohol) AUDIT-C Answer Date Recorded Frequency of Alcohol Consumption Never 12/07/2017 Average Number of Drinks Not on file 018 Frequency of Binge Drinking Not on file 03/2017 Sex and Gender Information Value Date Recorded Sex Assigned at Not on file Legal Sex Male 9:15 PM CDT Gender Identity Not on file Sexual Orientation Not on file documented as of this encounter Functional Status documented as of this encounter Plan of Treatment Upcoming Encounters Date Type Department Care Team (Late Contact Info) Description 08/26/2024 3:20 PM CDT Office Visit [address] [address] Kirit Torres MD [address] [place] [phone] 08/27/2024 2:40 PM CDT Office Visit [place] [address] [place] [address] Kirit Torres MD [address] [place] [address] 09/02/2024 11:30 AM CDT Office Visit [facility] [address] [address] Rafat Lagunas MD [address] [place] [address] 12/08/2024 8:00 AM INTERNATIONAL OPERATIONS MANAGER Office Visit [facility] [address] [place] [address] 12/11/2024 8:00 AM INTERNATIONAL OPERATIONS MANAGER Office Visit [place] [address] 12/15/2024 8:20 AM INTERNATIONAL OPERATIONS MANAGER Office Visit Damian Hung [address] [place] [address] Kirit Torres MD [address] [place] [address] documented as of this encounter Visit Diagnoses Not on filedocumented in this encounter Additional Health Concerns Infection Onset Date Last Indicated Resolved Time COVID-19 Rule Out 02/03/2020 02/03/2020 02/03/2020 7:04 PM INTERNATIONAL OPERATIONS MANAGER documented as of this encounter Care Teams Clutch Assembler Relationship Specialty Start Date End Date Kirit Torres MD [address] [place] [address] PCP - General 11/23/22 documented as of this encounter
--- OUTSIDE RECORDS SUMMARY | 2024-08-26 12:38 | XMS_ITS | Encounter Summary ---
Author Organization [facility] er Address [address] [place] [address] Care Team Providers Care Bilingual Spanish Inbound Sales Name Role Phone Kirit Torres MD Primary Care Provider [phone] Reason for Visit * Reason Comments Med Refill Encounter Details Date Type Department Care Team (Late st Contact Info) Description 07/31/2024 Refill [facility] [place] [address] [place] [address] Kirit Torres MD [address] [place] [address] Chronic obstructive pulmonary disease, unspecified COPD type (HCC) Social History Tobacco Use Types Packs/Day Years Used Date Smoking Tobacco: Former Cigarettes 0.4 2 1 919 - 1976 Smokeless Tobacco: Never Alcohol Use Standard Drinks/Week Comments No 0 (1 standard drink = 0.6 oz pur e alcohol) sober since 1999 [id number] Health Literacy Answer Date Recor ded How often do you need to hav e someone help you when you read instructions, pamphlets, or other written material from your doctor or pharmacy? Never 06/10/2024 [facility] Utilities Answer Date Recorded In the past 12 months has e electric, gas, oil, or water company threatened to shut off services in your [...] How often do you attend chur or worship services? More than 4 times per year 06/10/2024 Do you belong to any clubs o r organizations such as congregation groups, unions, fraternal or athletic groups, or [...] Date Recorded PHQ-9 Total Score 1 06/10/2024 [facility] [place] of Occupat ional Health - Occupational Stress [...] place to sleep or slept in a snf (including now)? No 12/08/2022 Housing Stability Vital Sign Answer Anup e Recorded In the last 12 months, was t here a time when you were not able to pay the mortgage or rent on time? No 06/10/2024 In the past 12 months, how m any times have you moved where you were living? 0 06/10/2024 At any time in the past 12 [facility], were you homeless or living in a snf (including now)? 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 New Rx for FLUTICASONE/SALM DISK 100/50MCG 60S sent to [facility] on 07/31/24 for #60 refill x 2. E-Prescribing Status: Receipt confirmed by pharmacy (07/31/2024 11:29 AM CDT) documented in this encounter Plan of Treatment Upcoming Encounters Date Type Department Care Team (Late st Contact Info) Description 08/26/2024 3:20 PM CDT Office Visit [address] [address] Kirit Torres MD [address] [phone] 08/27/2024 2:40 PM CDT Office Visit [address] [address] Kirit Torres MD [address] [address] 09/02/2024 11:30 AM CDT Office Visit Pain Management [address] [place] [address] [place] [address] [place] [phone] 12/08/2024 8:00 AM BOILERMAKING SUPERVISOR Office Visit [address] [address] 12/11/2024 8:00 AM BOILERMAKING SUPERVISOR Office Visit [address] [address] 12/15/2024 8:20 AM BOILERMAKING SUPERVISOR Office Visit [address] [address] Kirit Torres MD [address] [phone] documented as of this encounter Visit Diagnoses Diagnosis Chronic obstructive pulmonary disease, unspecified COPD type (HCC) documented in this encounter Care Teams Bilingual Spanish Inbound Sales Relationship Specialty Start Date End Date Kirit Torres MD [address] [place] [phone] PCP - General 11/23/22 documented as of this encounter
--- OUTSIDE RECORDS SUMMARY | 2024-08-26 12:38 | XMS_ITS | Encounter Summary ---
Author Organization [facility] er Address [address] [place] [address] Care Team Providers Care Risk Assessment Analyst Name Role Phone Kirit Torres MD Primary Care Provider [phone] Reason for Visit * Reason Comments Med Refill Encounter Details Date Type Department Care Team (Late st Contact Info) Description 07/28/2024 Refill [place] [address] [place] [address] Kirit Torres MD [address] [place] [address] Paroxysmal atrial fibrillation (HCC); Essential hypertension Social History Tobacco Use Types Packs/Day Years Used Date Smoking Tobacco: Former Cigarettes 0.4 2 1 685 - 1976 Smokeless Tobacco: Never Alcohol Use Standard Drinks/Week Comments No 0 (1 standard drink = 0.6 oz pur e alcohol) sober since 1999 [id number] Health Literacy Answer Date Recor ded How often do you need to hav e someone help you when you read instructions, pamphlets, or other written material from your doctor or pharmacy? Never 06/10/2024 [facility] Utilities Answer Date Recorded In the past 12 months has e [employer], gas, oil, or water Doctor[employer] threatened to shut off services in your [...] How often do you attend chur or mosque services? More than 4 times per year 06/10/2024 Do you belong to any clubs o r organizations such as oriental orthodox groups, unions, fraternal or athletic groups, or [...] Date Recorded PHQ-9 Total Score 1 06/10/2024 [facility] [place] of Occupat ional Health - Occupational Stress [...] place to sleep or slept in a chcf (including now)? No 12/08/2022 Housing Stability Vital [...] time in the past 12 m [facility], were you homeless or living in a chcf (including now)? 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 02/06/1976 02/05/18 83 documented as of this encounter Plan of Treatment Upcoming Encounters Date Type Department Care Team (Late st Contact Info) Description 08/26/2024 3:20 PM CDT Office Visit [address] [address] Kirit Torres MD [address] [address] 08/27/2024 2:40 PM CDT Office Visit [address] [address] Kirit Torres MD [address] [address] 09/02/2024 11:30 AM CDT Office Visit Pain Management [address] [place] [address] [place] [address] [place] [phone] 12/08/2024 8:00 AM GOLD MINER BLASTING Office Visit [address] [address] 12/11/2024 8:00 AM GOLD MINER BLASTING Office Visit [address] [address] 12/15/2024 8:20 AM GOLD MINER BLASTING Office Visit [address] [address] Kirit Torres MD [address] [place] [address] documented as of this encounter Visit Diagnoses Diagnosis Paroxysmal atrial fibrillation (HCC) Atrial fibrillation Essential hypertension Unspecified essential hypertension documented in this encounter Care Teams Risk Assessment Analyst Relationship Specialty Start Date End Date Kirit Torres MD [address] [facility] [address] [place] [address] PCP - General 11/23/22 documented as of this encounter
--- OUTSIDE RECORDS SUMMARY | 2024-08-26 12:38 | XMS_ITS | Data Portability ---
Author Organization [facility], [facility] - OP Address [address] [place] [id number] Assessment Encounter Date Assessment Date Assessment LastModified by Organization Details LastModified Time 09/01/2020 09/01/2020 chronic low back pain some right hip issues with pain [email or web address] Not available 09/01/2020 11:10:28 Plan of Treatment Reminders Order Date Submit Date Provider Last Modified By Organization Details Last Modified Time Details Appointments None record ed. Lab None record ed. Referral None record ed. Procedures None record ed. Surgeries None record ed. Imaging None record ed. Medication Orders None record ed. Patient TargetsNo targets recorded. Patient Instructions Encounter Date Encounter Id Patient Instructions Last Modified By Organization Details Last Modified Time 09/01/2020 [id number] I will recommend further workup with lumbar CT scan given his symptoms. see back for followup for further discussion. Today I and my immediate clinical team spent _25_ minutes preparing to see the patient, performing a physical exam, going over test results and educating and counseling patients, updating their history, placing orders, and documenting this visit in [place] [id number] Not available 09/01/2020 11:11:09 Reason for Referral None Reported. Problems Name Problem SNOMED Code Status Onset Date Resolution Date Notes Provider Name and Address Organization Details Recorded Time Chronic back pain 117933048 Active 021 Miriam Wilkinson [place], [place] [employer] 10:24:37 Problem Notes None recorded. Medical Equipment None Reported. Allergies No known drug allergies Medications Name Sig Start Date Stop Date Status Note LastModified by Organization Details LastModified Time losartan 50 mg tablet TK 1 T PO QD active Not Available Not Available No t Available metoprolol succinate ER 50 mg tablet,exten ded release 24 hr TAKE 1 TABLET BY MOUTH DAILY FOR BLOOD PRESSURE/HE ART. DO NOT CRUSH OR CHEW. active Not Available Not Available No t Available triamcinolon e acetonide 0.1 % topical cream MAY DORA A SMALL AMOUNT 1-2 TIMES PER DAY TO EAR CANALS IF NEEDED FOR ITCH active Not Available Not Available No t Available tamsulosin 0.4 mg capsule TAKE 1 CAPSULE BY MOUTH DAILY active Not Available Not Available Not Available omeprazole 20 mg capsule,sebastian yed release TK 1 C PO D PRF GERD. DO NOT CRUSH OR CHEW active Not Available Not Available No t Available SF 5000 Plus 1.1 % dental cream active Not Available Not Available Not Available finasteride 5 mg tablet active Not Available Not Available Not Available Xarelto 20 mg tablet TAKE 1 TABLET BY MOUTH DAILY WITH FOOD FOR ATRIAL FIBRLLATION active Not Available Not Available Not Available Vitals Date Recorded Body weight Body mass index (BMI) Body height Respiratory rate Body temperature Heart rate Oxygen saturation Oxygen saturation in Arterial blood by Pulse oximetry Systolic And Diastolic Provider Name and Address Organization Details Last Updated DateTime 191725. 09 g 34.9 kg/m2 180.34 cm 18 /min 98.3 [degF] 64 /min 95 % 95 % 128/77 mm[Hg] Miriam Wilkinson [place] [employer] 10:30:07 Social History Question Answer Notes LastModified by Organizat ion Details LastModified Time Tobacco Smoking Status Never Smoker Miriam jean [place] [employer] 09/01/2020 10:25:36 What Was The Date Of Your Most Recent Tobacco Screening? 09/01/2020 Information not available 09/01/2020 Sex: Unknown Functional Status None recorded. Mental Status None recorded. Family History Relationship Description Onset Age of this Age Resolved Age Notes LastModified by Organization Details LastModified Time Father Family history of malignant neoplasm bone cancer Not available 09/01/2020 10:25:00 Mother Family history of heart failure [email or web address] Not available 08/06 10:25:17 Medical History Condition Response Diabetes N Cancer/Tumors N Blood Clot N Heart Murmur N Stroke N High Cholesterol N Hypertension Y Past Encounters Encounter ID Performer Location Encounter Start Date Encounter Closed Date Diagnosis/Indication Diagnosis SNOMED-CT Code Diagnosis ICD10 Code Diagnosis Note [id number] Nam Hughes MD [facility] [address] [facility] [address] [place] [address] 09/01/2020 10:05:21 09/02/2020 13:46:30 Health Concerns Section Related Observation LastModified by Organization Detai ls LastModified Time None Recorded Concern Status LastModified by Organization Details LastModified Time None Recorded Advance Directives Directive None Recorded Payers Insurance Date Sequence Insurance Name Policy Number Policy Munoz Covered Member ID Munoz Member ID Guarantor Name 10/04/2020 1 [place] [id number] Erasto Ramos [id number] Erasto Ramos Notes Date Note Type Note Provider Name and Address Organization Details Recorded Time 09/01/2020 text/html Back PainReporte d bypatient.Location :lumbar;pain radiating to the buttocks Quality:sharp;stif fness Severity:pain level 3/10; Worst pain @6/10. Associated Symptoms:weak limbs;numbness of the legs/feet;tingling Prior Imaging:none Today nursing spent 20 minutes preparing to see the patient, obtaining and reviewing patients history, obtaining vital signs, entering medications, tests & procedures, educating the patient, coordinating care, and documenting this visit in [place]. This is a 60 year old with low back pain for last two years. Saw us on TV. When he walks he gets leg pains posteriorly. 2 block claudication. Just taking tylenol for pain control. He had right hip replaced 2015. Two weeks ago he had steroid injection into the left hip in [place] by a radiologist with good outcome. 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 Lift weights . Has had afib. On Xeralto and Beta izabela. Nam Hughes MD [address], [place], [address], [place] - [facility] 09/01/2020 11:11:15
--- OUTSIDE RECORDS SUMMARY | 2024-08-26 12:38 | XMS_ITS | Encounter Summary ---
Author Organization [facility] er Address [address] [place] [address] Care Team Providers Care Feed Mill Lab Technician Name Role Phone Kirit Torres MD Primary Care Provider Reason for Visit * Reason Onset Date Comments Referral 07/09/2024 Encounter Details Date Type Department Care Team (Late st Contact Info) Description 07/09/2024 Telephone [place] [address] [place] [address] Kirit Torres MD [address] [facility] [address] [place] [address] Referral Social History Tobacco Use Types Packs/Day Years Used Date Smoking Tobacco: Former Cigarettes 0.4 2 1 545 - 1976 Smokeless Tobacco: Never Alcohol Use Standard Drinks/Week Comments No 0 (1 standard drink = 0.6 oz pur e alcohol) sober since 1999 B1300 Health Literacy Answer Date Recor ded How often do you need to hav e someone help you when you read instructions, pamphlets, or other written material from your doctor or pharmacy? Never 06/10/2024 [facility] Utilities Answer Date Recorded In the past 12 months has e [employer], gas, oil, or water [employer] threatened to shut off services in your [...] How often do you attend chur or gnosticism services? 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 * Telephone Encounter - Latisha Pierre RN - 07/09/2024 3:15 PM CDT Please call patient and schedule appointment for appt with Dr. Torres for Back pain. * Telephone Encounter - Kirit Torres MD - 07/09/2024 2:47 PM CDT He can make an appointment for an evaluation; I have not seen him for this. * Telephone Encounter - Lilliam Ramsey RN - 07/09/2024 2:00 PM CDT Patient is calling to see if Dr Torres can get him into pain medicine any sooner? He can't get in until September 02. District Plant Engineer advised patient there wasn't another provider in pain management and asked if he wanted a referral to [facility]. Patient declined a referral to [facility]. He states he doesn't really know if he can deal with this pain until August and wants PCP recommendations... documented in this encounter Plan of Treatment Upcoming Encounters Date Type Department Care Team (Late st Contact Info) Description 08/26/2024 3:20 PM CDT Office Visit [facility] [address] [place] [address] Kirit Torres MD [address] [phone] 08/27/2024 2:40 PM CDT Office Visit [facility] [address] [place] [address] Kirit Torres MD [address] [phone] 09/02/2024 11:30 AM CDT Office Visit Pain Management [address] [place] [address] [place] [address] [place] [phone] 12/08/2024 8:00 AM DIRECTOR WEIGHTS AND MEASURES Office Visit [facility] [address] [place] [address] 12/11/2024 8:00 AM DIRECTOR WEIGHTS AND MEASURES Office Visit [facility] [address] [place] [address] 12/15/2024 8:20 AM DIRECTOR WEIGHTS AND MEASURES Office Visit [facility] [address] [place] [address] Kirit Torres MD [address] [phone] documented as of this encounter Visit Diagnoses Not on filedocumented in this encounter Care Teams Feed Mill Lab Technician Relationship Specialty Start Date End Date Kirit Torres MD [address] [place] [address] PCP - General 11/23/22 documented as of this encounter
--- OUTSIDE RECORDS SUMMARY | 2024-08-26 12:38 | XMS_ITS | Encounter Summary ---
Author Organization [facility] er Address [address] [place] [address] Care Team Providers Care Data Processing Operator Name Role Phone Kirit Torres MD Primary Care Provider [phone] Reason for Visit * Reason Comments Med Refill Encounter Details Date Type Department Care Team (Late st Contact Info) Description 07/15/2024 Refill [place] [address] [place] [address] Kirit Torres MD [address] [place] [address] Primary hypertension Social History Tobacco Use Types Packs/Day Years Used Date Smoking Tobacco: Former Cigarettes 0.4 2 1 205 - 1976 Smokeless Tobacco: Never Alcohol Use Standard Drinks/Week Comments No 0 (1 standard drink = 0.6 oz pur e alcohol) sober since 1999 B1300 Health Literacy Answer Date Recor ded How often do you need to hav e someone help you when you read instructions, pamphlets, or other written material from your doctor or pharmacy? Never 06/10/2024 [facility] Utilities Answer Date Recorded In the past 12 months has e [employer], gas, oil, or water [employer] threatened to shut off services in your [...] How often do you attend chur or zoroastrianism services? More than 4 times per year 06/10/2024 Do you belong to any clubs o r organizations such as pentecostal groups, unions, fraternal or athletic groups, or [...] Date Recorded PHQ-9 Total Score 1 06/10/2024 [facility] [place] of Occupat ional Health - Occupational Stress [...] place to sleep or slept in a long term (including now)? No 12/08/2022 Housing Stability Vital Sign Answer Anup e Recorded In the last 12 months, was t here a time when you were not able to pay the mortgage or rent on time? No 06/10/2024 In the past 12 months, how m any times have you moved where you were living? 0 06/10/2024 At any time in the past 12 m [facility], were you homeless or living in a long term (including now)? 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 hydroCHLOROthiazide (HYDRODIURIL) 25 MG tablet Sig: Take 1 tablet (25 mg total) by mouth 1 (one) time each day Sent to pharmacy as: hydroCHLOROthiazide 25 MG Oral Tablet (HYDRODIURIL) Class: Normal Route: Oral E-Prescribing Status: Receipt confirmed by pharmacy (07/15/2024 4:24 PM CDT) Pharmacy [id number] [place] [address] [facility] [address] documented in this encounter Plan of Treatment Upcoming Encounters Date Type Department Care Team (Late st Contact Info) Description 08/26/2024 3:20 PM CDT Office Visit [address] [address] Kirit Torres MD 1705 [facility] 20 [place] [address] 08/27/2024 2:40 PM CDT Office Visit [address] [address] Kirit Torres MD 1705 [facility] [address] [place] [address] 09/02/2024 11:30 AM CDT Office Visit [facility] [address] [place] [address] [place] [address] [place] [address] 12/08/2024 8:00 AM PHYSICAL GEOGRAPHER Office Visit [address] [address] 12/11/2024 8:00 AM PHYSICAL GEOGRAPHER Office Visit [address] [address] 12/15/2024 8:20 AM PHYSICAL GEOGRAPHER Office Visit [address] [address] Kirit Torres MD 1705 [facility] [address] [place] [address] documented as of this encounter Visit Diagnoses Diagnosis Primary hypertension Unspecified essential hypertension documented in this encounter Care Teams Data Processing Operator Relationship Specialty Start Date End Date Kirit Torres MD [address] [facility] [address] [place] [address] PCP - General 11/23/22 documented as of this encounter
--- OUTSIDE RECORDS SUMMARY | 2024-08-26 12:38 | XMS_ITS | Encounter Summary ---
Author Organization [facility] er Address [address] [place] [address] Care Team Providers Care Hosting Engineer Name Role Phone Kirit Torres MD Primary Care Provider [phone] Encounter Details Date Type Department Care Team (Late st Contact Info) Description 07/18/2024 Telephone [facility] 52 Sleep Medicine [address] [place] [address] Sara Bajwa MD [address] [address] Social History Tobacco Use Types Packs/Day Years Used Date Smoking Tobacco: Former Cigarettes 0.4 2 1 315 - 1976 Smokeless Tobacco: Never Alcohol Use Standard Drinks/Week Comments No 0 (1 standard drink = 0.6 oz pur e alcohol) sober since 1999 B1300 Health Literacy Answer Date Recor ded How often do you need to hav e someone help you when you read instructions, pamphlets, or other written material from your doctor or pharmacy? Never 06/10/2024 [facility] Utilities Answer Date Recorded In the past 12 months has e [employer] gas, oil, or water [employer] threatened to shut off services in your [...] How often do you attend chur or islam services? More than 4 times per year 06/10/2024 Do you belong to any clubs o r organizations such as mosque groups, unions, fraternal or athletic groups, or [...] Date Recorded PHQ-9 Total Score 1 06/10/2024 [facility] of Occupat ional Health - Occupational Stress [...] place to sleep or slept in a correction (including now)? No 12/08/2022 Housing Stability Vital Sign Answer Anup e Recorded In the last 12 months, was t here a time when you were not able to pay the mortgage or rent on time? No 06/10/2024 In the past 12 months, how m any times have you moved where you were living? 0 06/10/2024 At any time in the past 12 m [facility], were you homeless or living in a correction (including now)? No 06/10/2024 Interpersonal Safety Questionnaire Answer Date Recorded How often does anyone, jaydon layla family and friends, physically hurt you? 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 Bajwa. * Telephone Encounter - Sara Bajwa MD - 07/22/2024 10:53 AM CDT ---- Brief Note --- 07/22/24 10:53 AM I received communication that the patient was able to obtain additional bars for his oral mandibular advancement device (was able to replace bar 8 with bar 9 and also received bar 10 for future if needed) He should trial these to see if it improves sleep and/or daytime tiredness. He does not have 3 month follow up scheduled yet, so I will ask that this be scheduled when able. Otherwise, no change in management at this time. Sara Bajwa MD Sleep Medicine and Neurology * Telephone Encounter - Leti Campbell MA - 07/18/2024 10:36 AM CDT Called patient and advised that he would call Supplier of Oral device. * Telephone Encounter - Mariah Monterroso - 07/18/2024 10:25 AM CDT Pt called wanted to discuss about replacing bars #8 with 9 and 10 for oral device. documented in this encounter Plan of Treatment Upcoming Encounters Date Type Department Care Team (Late st Contact Info) Description 08/26/2024 3:20 PM CDT Office Visit [facility] [address] [place] [address] Kirit Torres MD [address] [place] [phone] 08/27/2024 2:40 PM CDT Office Visit [facility] [address] [place] [address] Kirit Torres MD [address] [phone] 09/02/2024 11:30 AM CDT Office Visit Pain Management [address] [place] [address] [place] [address] [place] [phone] 12/08/2024 8:00 AM RESEARCH COMPLIANCE SPECIALIST Office Visit [facility] [address] [place] [address] 12/11/2024 8:00 AM RESEARCH COMPLIANCE SPECIALIST Office Visit [facility] [address] [place] [address] 12/15/2024 8:20 AM RESEARCH COMPLIANCE SPECIALIST Office Visit [facility] [address] [place] [address] Kirit Torres MD [address] [place] [phone] documented as of this encounter Visit Diagnoses Not on filedocumented in this encounter Care Teams Hosting Engineer Relationship Specialty Start Date End Date Kirit Torres MD [address] [place] [address] PCP - General 11/23/22 documented as of this encounter
--- OUTSIDE RECORDS SUMMARY | 2024-08-26 12:38 | XMS_ITS | Encounter Summary ---
Author Organization [facility] er Address [address] [place] [address] Care Team Providers Care Director Of Veterans Affairs Name Role Phone Kirit Torres MD Primary Care Provider [phone] Reason for Visit * Reason Comments Med Refill Encounter Details Date Type Department Care Team (Late st Contact Info) Description 02/02/2024 Refill [place] [address] [place] [address] Britany Coombs MD Atrial fibrillation, controlled (HCC) Social History Tobacco Use Types Packs/Day [...] material from your doctor or pharmacy? Never 12/11/2023 [facility] Utilities Answer Date Recorded In the past [address] [facility] gas, oil, or water [employer] threatened to shut off services in your home? No 12/11/2023 Humiliation, Afraid, Rape, and Kick questionnair e Answer Date Recorded Within the last year, have y ou been afraid of your partner or ex-partner? No 12/08/2022 Within the last year, have y ou been humiliated or emotionally abused in other ways by your partner or ex-partner? No Within the last year, have y ou been kicked, hit, slapped, or otherwise physically hurt by your partner or ex-partner? No 12/08/2022 Within the last year, have y ou been raped or forced to have any kind of sexual activity by your partner or ex-partner? No 12/08/2022 Social Connection and Isolat ion Panel [NHANES] Answer Date Recorded In a typical week, how many times do you talk on the phone with family, friends, or neighbors? Three times a week 12/11/2023 How often do you get togethe r with friends or relatives? Twice a week 12/11/2023 How often do you attend chur or methodist services? More than 4 times per year 12/11/2023 Do you belong to any clubs o r organizations such as rastafari groups, unions, fraternal or athletic groups, or school groups? Yes 12/11/2023 How often do you attend meet ings of the clubs or organizations you belong to? 1 to 4 times per year 12/11/2023 Are you , , di vorced, , never , or living with a partner? Never 12/11/2023 AUDIT-C Answer Date Recorded Q1: How often do you have a drink containing alcohol? Never 12/11/2023 Q2: How many drinks containi ng alcohol do you have on a typical day when you are drinking? Patient does not drink Q3: How often do you have si x or more drinks on one occasion? Never 12/11/2023 Overall Financial Resource Strain (CARDIA) Answe r Date Recorded How hard is it for you to pa y for the very basics like food, housing, medical care, and heating? Not hard at all 12/11/2023 PHQ-2 Answer Date Recorded PHQ-9 Total Score 3 12/11/2023 [facility] of Occupat ional Health - Occupational Stress Questionnaire Answer Date Recorded Do you feel stress - tense, restless, nervous, or anxious, or unable to sleep at night because your mind is troubled all the time - these days? Not at all 12/11/2023 Exercise Vital Sign Answer Date Recorde d On average, how many days pe r week do you engage in moderate to strenuous exercise (like a brisk walk)? 4 days 12/11/2023 On average, how many minutes do you engage in exercise at this level? 80 min 12/11/2023 Hunger Vital Sign Answer Date Recorded Within the past 12 months, y ou worried that your food would run out before you got the money to buy more. Never true 12/11/19 24 Within the past 12 months, t he food you bought just didn't last and you didn't have money to get more. Never true 12/11/2023 PRAPARE - Transportation Answer Date Re corded In the past 12 months, has l ack of transportation kept you from medical appointments or from getting medications? No 06/2023 In the past 12 months, has l ack of transportation kept you from meetings, work, or from getting things needed for daily living? No 12/11/2023 Housing Stability Vital Sign Answer Anup e [...] place to sleep or slept in a senior living (including now)? No 12/08/2022 Housing Stability Vital Sign Answer Anup e Recorded In the last 12 months, was t here a time when you were not able to pay the mortgage or rent on time? No 12/11/2023 In the past 12 months, how m any times have you moved where you were living? 0 12/11/2023 At any time in the past 12 m [facility], were you homeless or living in a senior living (including now)? No 12/11/2023 Education Answer Date Recorded What is the highest level of school you have completed or the highest degree you have received? 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 rivaroxaban (Xarelto) 20 MG tablet [[id number]] Order Details Dose: 20 mg Route: Oral Frequency: Daily Dispense Quantity: 90 tablet Refills: 3 Sig: Take 1 tablet (20 mg total) by mouth 1 (one) time each day Start Date: 12/11/23 End Date: -- Written Date: 12/11/23 Expiration Date: 12/10/24 F PHYSICAL THERAPIST documented in this encounter Plan of Treatment Upcoming Encounters Date Type Department Care Team (Late st Contact Info) Description 08/26/2024 3:20 PM CDT Office Visit [address] [address] Kirit Torres MD [address] [place] [phone] 08/27/2024 2:40 PM CDT Office Visit [address] [address] Kirit Torres MD [address] [place] [phone] 09/02/2024 11:30 AM CDT Office Visit [facility] [address] [place] [address] Rafat Lagunas MD [address] [place] [address] 12/08/2024 8:00 AM CHIEF PHYSICAL THERAPIST Office Visit [address] [address] 12/11/2024 8:00 AM CHIEF PHYSICAL THERAPIST Office Visit [address] [address] 12/15/2024 8:20 AM CHIEF PHYSICAL THERAPIST Office Visit [address] [address] Kirit Torres MD [address] [place] [address] documented as of this encounter Visit Diagnoses Diagnosis Atrial fibrillation, controlled (HCC) documented in this encounter Care Teams Director Of Veterans Affairs Relationship Specialty Start Date End Date Kirit Torres MD [address] [place] [address] PCP - General 11/23/22 documented as of this encounter
--- OUTSIDE RECORDS SUMMARY | 2024-08-26 12:38 | XMS_ITS | Encounter Summary ---
Author Organization [facility] er Address [address] [place] [address] Care Team Providers Care Accounts Payable Bookkeeper Name Role Phone Kirit Torres MD Primary Care Provider [phone] Encounter Details Date Type Department Care Team (Late Contact Info) Description 09/22/2020 Telephone Y 52 Sleep Medicine [address] [facility] [place] [address] Rajesh Heller MD Social History Tobacco Use Types Packs/Day Years [...] Answer Date Recorded PHQ-9 Total Score 0 08/18/2020 Education Answer Date Recorded What is the highest level of school you have completed or the highest degree you have received? 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 Not on file Not on file documented as of this encounter Plan of Treatment Upcoming Encounters Date Type Department Care Team (Late Contact Info) Description 08/26/2024 3:20 PM CDT Office Visit [facility] [address] [place] [address] [place] [address] Kirit Torres MD [address] [facility] [address] [place] [address] 08/27/2024 2:40 PM CDT Office Visit [facility] [address] [place] [address] [place] [address] Kirit Torres MD [address] [place] [address] 09/02/2024 11:30 AM CDT Office Visit [facility] [address] [place] [address] Rafat Lagunas MD [address] [place] [phone] 12/08/2024 8:00 AM BRUSH MAKER Office Visit [facility] [address] [place] [address] 12/11/2024 8:00 AM BRUSH MAKER Office Visit [facility] [address] [place] [address] 12/15/2024 8:20 AM BRUSH MAKER Office Visit [facility] [address] [place] [address] Kirit Torres MD [address] [place] [address] documented as of this encounter Visit Diagnoses Not on filedocumented in this encounter Care Teams Accounts Payable Bookkeeper Relationship Specialty Start Date End Date Kirit Torres MD [address] [place] [address] [place] [address] PCP - General 11/23/22 documented as of this encounter
--- OUTSIDE RECORDS SUMMARY | 2024-08-26 12:38 | XMS_ITS | Encounter Summary ---
Author Organization [facility] er Address [address] [place] [address] Care Team Providers Care Masseur/Masseuse Name Role Phone Kirit Torres MD Primary Care Provider [phone] Reason for Visit * Reason Onset Date Comments Cardioversion 01/19/2020 Pt is calling to see when he can get his cardioversion scheduled. Encounter Details Date Type Department Care Team ([facility] Contact Info) Description 01/19/2020 Telephone [facility] [address] [place] [address] Edgardo Lee MD Cardioversion (Pt is calling to see when he can get his cardioversion scheduled. ) Social History Tobacco Use Types Packs/Day Years Used Date Smoking Tobacco: Former Cigarettes Q uit: 1977 Smokeless Tobacco: Never Alcohol Use Standard Drinks/Week Comments No 0 (1 standard drink = 0.6 oz pur e alcohol) sober since 1999 AUDIT-C Answer Date Recorded Frequency of Alcohol Consumption Never 12/07/2017 Average Number of Drinks Not on file 018 Frequency of Binge Drinking Not on file 03/2017 PHQ-2 Answer Date Recorded PHQ-2 Score 0 11/05/2019 Education Answer Date Recorded What is the highest level of school you have completed or the highest degree you have received? 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 Not on file Not on file Not on file documented as of this encounter Plan of Treatment Upcoming Encounters Date Type Department Care Team (Late Contact Info) Description 08/26/2024 3:20 PM CDT Office Visit [facility] [address] [place] [address] [place] [address] Kirit Torres MD [address] [place] [address] 08/27/2024 2:40 PM CDT Office Visit [facility] [address] [place] [address] [place] [address] Kirit Torres MD [address] Count Includes [facility] [address] [place] [address] 09/02/2024 11:30 AM CDT Office Visit Pain Management [address] [place] [address] Rafat Lagunas MD [address] [place] [phone] 12/08/2024 8:00 AM GRANITE WORKER Office Visit [facility] [address] [place], [place] [address] [address] 12/11/2024 8:00 AM GRANITE WORKER Office Visit [facility] [address] [place] [address] 12/15/2024 8:20 AM GRANITE WORKER Office Visit [facility] [address] [place] [address] Kirit Torres MD [address] [place] [address] documented as of this encounter Visit Diagnoses Not on filedocumented in this encounter Additional Health Concerns Infection Onset Date Last Indicated Resolved Time COVID-19 Rule Out 02/03/2020 02/03/2020 02/03/2020 7:04 PM GRANITE WORKER documented as of this encounter Care Teams Masseur/Masseuse Relationship Specialty Start Date End Date Kirit Torres MD [address] Count Includes [facility] [address] [place] [address] PCP - General 11/23/22 documented as of this encounter
--- OUTSIDE RECORDS SUMMARY | 2024-08-26 12:38 | XMS_ITS | Encounter Summary ---
Author Organization [facility] er Address [address] [place] [address] Care Team Providers Care Wound Care Nurse Name Role Phone Kirit Torres MD Primary Care Provider [phone] Reason for Visit * Reason Onset Date Comments Nursing BP check and lab work 08/14/2024 Encounter Details Date Type Department Care Team (Late st Contact Info) Description 08/14/2024 Telephone [facility] [address] [place] [address] Kirit Torres MD [address] [place] [address] Nursing BP check and lab work Social History Tobacco Use Types Packs/Day Years [...] from your doctor or pharmacy? Never 06/10/2024 [facility] Utilities Answer Date Recorded In the past 12 months has [facility] electric, gas, oil, or water company threatened [...] How often do you attend chur or congregational services? More than 4 times per year 06/10/2024 Do you belong to any clubs o r organizations such as sabianism groups, unions, fraternal or athletic groups, or [...] Date Recorded PHQ-9 Total Score 1 06/10/2024 [facility] of Occupat ional Health - Occupational Stress [...] place to sleep or slept in a longterm (including now)? No 12/08/2022 Housing Stability Vital Sign Answer Anup e Recorded In the last 12 months, was t here a time when you were not able to pay the mortgage or rent on time? No 06/10/2024 In the past 12 months, how m any times have you moved where you were living? 0 06/10/2024 At any time in the past 12 m [facility], were you homeless or living in a longterm (including now)? 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 * Telephone Encounter - Qian Lorenzo - 08/19/2024 8:48 AM CDT [facility] and lab work on or around 08/29. * Telephone Encounter - Florinda Sarabia LPN - 08/14/2024 10:06 AM CDT Eliza, August 28 or if either work for the patient. Just lab work and a nurse only BP check. * Telephone Encounter - Barbi Ibarra - 08/14/2024 9:46 AM CDT Is this for first available after today's bp check or for example, one week out? Please clarify so I can schedule him correctly for timing. Thank you. * Telephone Encounter - Florinda Sarabia LPN - 08/14/2024 9:06 AM CDT Please call the patient and schedule BP recheck with nursing and lab visit please. documented in this encounter Plan of Treatment Upcoming Encounters Date Type Department Care Team (Late st Contact Info) Description 08/26/2024 3:20 PM CDT Office Visit [address] [address] Kirit Torres MD [address] [address] 08/27/2024 2:40 PM CDT Office Visit [facility] [address] Kirit Torres MD [address] [address] 09/02/2024 11:30 AM CDT Office Visit Pain Management [address] [place] [address] [place] [address] [place] [address] 12/08/2024 8:00 AM RESEARCH ADVISOR Office Visit [facility] [address] 12/11/2024 8:00 AM RESEARCH ADVISOR Office Visit [facility] [address] 12/15/2024 8:20 AM RESEARCH ADVISOR Office Visit [address] [address] Kirit Torres MD [address] [address] documented as of this encounter Visit Diagnoses Not on filedocumented in this encounter Care Teams Wound Care Nurse Relationship Specialty Start Date End Date Kirit Torres MD [address] [place] [address] PCP - General 11/23/22 documented as of this encounter
--- OUTSIDE RECORDS SUMMARY | 2024-08-26 12:38 | XMS_ITS | Encounter Summary ---
Author Organization [facility] er Address [address] [place] [address] Care Team Providers Care Service Now Developer Name Role Phone Kirit Torres MD Primary Care Provider Encounter Details Date Type Department Care Team (Late st Contact Info) Description 08/07/2023 Telephone [place] [address] [place] [address] Kirit Torres MD 1705 [facility] 20 [place] [address] Social History Tobacco Use Types Packs/Day Years Used Date Smoking Tobacco: Former Cigarettes Q uit: 1977 Smokeless Tobacco: Never Alcohol Use Standard Drinks/Week Comments No 0 (1 standard drink = 0.6 oz pur e alcohol) sober since 1999 Humiliation, Afraid, Rape, and Kick questionnair e [...] neighbors? More than three times a week 12/08/2022 How often do you get togethe r with friends or relatives? Twice a week 12/08/2022 How often do you attend chur ch or oriental orthodox services? More than 4 times per year 12/08/2022 Do you belong to any clubs o r organizations such as confucianist groups, unions, fraternal or athletic groups, or school groups? Yes 12/08/2022 How often do you attend meet ings of the clubs or organizations you belong to? More than 4 times per year 12/08/2022 Are you , , di vorced, , never , or living with a partner? Never 12/08/2022 AUDIT-C Answer Date Recorded Q1: How often do you have a drink containing alcohol? Never 12/08/2022 Q2: How many drinks containi ng alcohol do you have on a typical day when you are drinking? Patient does not drink Q3: How often do you have si x or more drinks on one occasion? Never 12/08/2022 Overall Financial Resource Strain (CARDIA) Answe r Date Recorded How hard is it for you to pa y for the very basics like food, housing, medical care, and heating? Not hard at all 12/08/2022 PHQ-2 Answer Date Recorded PHQ-9 Total Score 1 08/01/2023 [facility] of Occupat ional Health - Occupational Stress Questionnaire Answer Date Recorded Do you feel stress - tense, restless, nervous, or anxious, or unable to sleep at night because your mind is troubled all the time - these days? Not at all 12/08/2022 Exercise Vital Sign Answer Date Recorde d On average, how many days pe r week do you engage in moderate to strenuous exercise (like a brisk walk)? 5 days 12/08/2022 On average, how many minutes do you engage in exercise at this level? 70 min 12/08/2022 Hunger Vital Sign Answer Date Recorded Within the past 12 months, y ou worried that your food would run out before you got the money to buy more. Never true 12/09/19 23 Within the past 12 months, t he food you bought just didn't last and you didn't have money to get more. Never true 12/08/2022 PRAPARE - Transportation Answer Date Re corded In the past 12 months, has l ack of transportation kept you from medical appointments or from getting medications? No 04/2022 In the past 12 months, has l ack of transportation kept you from meetings, work, or from getting things needed for daily living? No 12/08/2022 Housing Stability Vital Sign Answer [...] place to sleep or slept in a prison (including now)? No 12/08/2022 Education Answer Date Recorded What is the highest level of school you have completed or the highest degree you have received? 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 file Not on file Not on file documented as of this encounter Plan of Treatment Upcoming Encounters Date Type Department Care Team (Late st Contact Info) Description 08/26/2024 3:20 PM CDT Office Visit [address] [address] Kirit Torres MD [address] [address] 08/27/2024 2:40 PM CDT Office Visit [address] [address] Kirit Torres MD [address] [address] 09/02/2024 11:30 AM CDT Office Visit [facility] [address] [place] [address] Rafat Lagunas MD [address] [place] [address] 12/08/2024 8:00 AM CHARGE GANG WEIGHER Office Visit [place] [address] [place] [address] 12/11/2024 8:00 AM CHARGE GANG WEIGHER Office Visit [place] [address] [address] 12/15/2024 8:20 AM CHARGE GANG WEIGHER Office Visit [address] [address] Kirit Torres MD [address] [address] documented as of this encounter Visit Diagnoses Not on filedocumented in this encounter Care Teams Service Now Developer Relationship Specialty Start Date End Date Kirit Torres MD [address] [address] PCP - General 11/23/22 documented as of this encounter
--- OUTSIDE RECORDS SUMMARY | 2024-08-26 12:38 | XMS_ITS | Encounter Summary ---
Author Organization [facility] er Address [address] [place] [address] Care Team Providers Care Fire Investigation Manager Name Role Phone Kirit Torres MD Primary Care Provider [phone] Reason for Visit * Reason Onset Date Comments Afib concerns 08/26/2024 Encounter Details Date Type Department Care Team (Late st Contact Info) Description 08/26/2024 Nurse Triage [facility] [address] [place] [address] Kirit Torres MD 1705 [facility] 20 [place] [address] Social History Tobacco Use Types Packs/Day Years Used Date Smoking Tobacco: Former Cigarettes 0.4 2 1 015 - 1976 Smokeless Tobacco: Never Alcohol Use Standard Drinks/Week Comments No 0 (1 standard drink = 0.6 oz pur e alcohol) sober since 1999 B1300 Health Literacy Answer Date Recor ded How often do you need to hav e someone help you when you read instructions, pamphlets, or other written material from your doctor or pharmacy? Never 06/10/2024 [facility] Utilities Answer Date Recorded In the past 12 months has e electric, gas, oil, or water [employer] threatened to shut off services in your [...] How often do you attend chur or restoration services? More than 4 times per year 06/10/2024 Do you belong to any clubs o r organizations such as mormonism groups, unions, fraternal or athletic groups, or [...] Date Recorded PHQ-9 Total Score 1 06/10/2024 [facility] Occupat ional Health - Occupational Stress [...] place to sleep or slept in a intermediate (including now)? No 12/08/2022 Housing Stability Vital [...] in the past 12 m [facility], were you homeless or living in a intermediate (including now)? 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 He is experiencing decreased stamina and shortness of breath. Patient couldn't walk a mile without stopping 6 times, however patient can usually walk 3 hoursnonstop. Hx: Afib, needing cardioversion. Disposition Go to ED Now Patient has follow-up appointment scehduled for 08/27/2024. Patient requesting Dr. Torres review thisand decide if patient needs ED visit. Patient has lived in afib for weeks, isn't sure if it needsto be addressed today. Reason for Disposition Difficulty breathing No Initial Assessment on file. No Additional Information on file. Protocols Used Heart Rate and Heartbeat [id number] documented in this encounter Plan of Treatment Upcoming Encounters Date Type Department Care Team (Late st Contact Info) Description 08/26/2024 3:20 PM CDT Office Visit [facility] [address] [address] Kirit Torres MD [address] [place] [phone] 08/27/2024 2:40 PM CDT Office Visit [facility] [address] [place] [address] Kirit Torres MD [address] [phone] 09/02/2024 11:30 AM CDT Office Visit [facility] [address] [place] [phone] Rafat Lagunas MD 5067 [address] [place] [address] 12/08/2024 8:00 AM ICER MACHINE OPERATOR Office Visit [facility] [address] [place] [address] 12/11/2024 8:00 AM ICER MACHINE OPERATOR Office Visit [facility] [address] 12/15/2024 8:20 AM ICER MACHINE OPERATOR Office Visit [address] [address] Kirit Torres MD [address] [place] [phone] documented as of this encounter Visit Diagnoses Not on filedocumented in this encounter Care Teams Fire Investigation Manager Relationship Specialty Start Date End Date Kirit Torres MD [address] [place] [phone] PCP - General 11/23/22 documented as of this encounter
--- OUTSIDE RECORDS SUMMARY | 2024-08-26 12:38 | XMS_ITS | Encounter Summary ---
Author Organization [facility] er Address [address] [place] [address] Care Team Providers Care Associate Principal Name Role Phone Kirit Torres MD Primary Care Provider Reason for Visit * Reason Onset Date Comments Med Refill 07/15/2024 Encounter Details Date Type Department Care Team (Late st Contact Info) Description 07/15/2024 Telephone [facility] [address] [place] [address] Kirit Torres MD [address] [place] [address] Med Refill Social History Tobacco Use Types Packs/Day Years Used Date Smoking Tobacco: Former Cigarettes 0.4 2 1 905 - 1976 Smokeless Tobacco: Never Alcohol Use Standard Drinks/Week Comments No 0 (1 standard drink = 0.6 oz pur e alcohol) sober since 1999 B1300 Health Literacy Answer Date Recor ded How often do you need to hav e someone help you when you read instructions, pamphlets, or other written material from your doctor or pharmacy? Never 06/10/2024 [facility] Utilities Answer Date Recorded In the past 12 months has e electric, gas, oil, or water [employer] threatened to shut off services in your [...] How often do you attend chur or caodaism services? More than 4 times per year 06/10/2024 Do you belong to any clubs o r organizations such as taoist groups, unions, fraternal or athletic groups, or [...] Date Recorded PHQ-9 Total Score 1 06/10/2024 [facility] Occupat ional Health - Occupational Stress [...] place to sleep or slept in a group home (including now)? No 12/08/2022 Housing Stability Vital Sign Answer Anup e Recorded In the last 12 months, was t here a time when you were not able to pay the mortgage or rent on time? No 06/10/2024 In the past 12 months, how m any times have you moved where you were living? 0 06/10/2024 At any time in the past 12 m [facility], were you homeless or living in a group home (including now)? 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 * Telephone Encounter - Kirit Torres MD - 07/15/2024 4:22 PM CDT At last visit we increased the Diltiazem to two pills, not the hydrochlorothiazide. However we discussed we may need to increase the hydrochlorothiazide eventually... Please have him look at his pillbottles and confirm or come in to review. I sent refill of the hydrochlorothiazide per requested. * Telephone Encounter - Ada Corcoran MA - 07/15/2024 3:59 PM CDT hydroCHLOROthiazide 12.5 MG tablet Sig: TAKE 1 TABLET(12.5 MG) BY MOUTH 1 TIME EACH DAY Written Date: 02/05/24 Per visit notes dated 06/25/24 Will likely require increase hydrochlorothiazide 25 mg for HTN Per patient he has been taking 2 tablets (25 mg total) per day. He is now requesting new script with updated instructions. He is now out of medication documented in this encounter Plan of Treatment Upcoming Encounters Date Type Department Care Team (Late st Contact Info) Description 08/26/2024 3:20 PM CDT Office Visit [facility] [address] [place] [address] Kirit Torres MD [address] [phone] 08/27/2024 2:40 PM CDT Office Visit [facility] [address] Kirit Torres MD [address] [phone] 09/02/2024 11:30 AM CDT Office Visit [facility] [address] [place] [address] [place] [address] [place] [phone] 12/08/2024 8:00 AM ER PHYSICIAN Office Visit [facility] [address] 12/11/2024 8:00 AM ER PHYSICIAN Office Visit [facility] [address] 12/15/2024 8:20 AM ER PHYSICIAN Office Visit [facility] [address] Kirit Torres MD [address] [phone] documented as of this encounter Visit Diagnoses Diagnosis Primary hypertension Unspecified essential hypertension documented in this encounter Care Teams Associate Principal Relationship Specialty Start Date End Date Kirit Torres MD [address] [place] [phone] PCP - General 11/23/22 documented as of this encounter
--- OUTSIDE RECORDS SUMMARY | 2024-08-26 12:38 | XMS_ITS | Encounter Summary ---
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 Not on file Not on file documented as of this encounter Plan of Treatment Upcoming Encounters Date Type Department Care Team (Late Contact Info) Description 08/26/2024 3:20 PM CDT Office Visit [facility] [address] [place] [address] [place] [address] Kirit Torres MD 170 [facility] [address] [place] [address] 08/27/2024 2:40 PM CDT Office Visit [facility] [address] [place] [address] [place] [address] Kirit Torres MD [address] [place] [address] 09/02/2024 11:30 AM CDT [facility] Visit [facility] [address] [place] [address] [place]unas [place] [address] [place] [phone] 12/08/2024 8:00 AM RETAIL AND RESTAURANT Office Visit [facility] [address] [place] [address] 12/11/2024 8:00 AM RETAIL AND RESTAURANT Office Visit [facility] [address] [place] [address] 12/15/2024 8:20 AM RETAIL AND RESTAURANT Office Visit [facility] [address] [place] [address] Kirit Torres MD [address] [place] [address] documented as of this encounter Visit Diagnoses Not on filedocumented in this encounter Care Teams Cable Inspector Relationship Specialty Start Date End Date Kirit Torres MD [address] [place] [address] [place] [address] PCP - General 11/23/22 documented as of this encounter
--- OUTSIDE RECORDS SUMMARY | 2024-08-26 12:38 | XMS_ITS | Encounter Summary ---
Author Organization [facility] er Address [address] [place] [address] Care Team Providers Care Car Conditioner Name Role Phone Kirit Torres MD Primary Care Provider Reason for Visit * Reason Comments Med Refill Encounter Details Date Type Department Care Team (Late st Contact Info) Description 01/26/2023 [facility]ill [facility] [address] [place] [address] [place] [address] [place] [phone] Lumbar radicular syndrome Social History Tobacco Use [...] 12/08/2022 How often do you attend chur or pentecostalism services? More than 4 times per year 12/08/2022 Do you belong to any clubs o r organizations such as orthodoxy groups, unions, fraternal or athletic groups, or [...] Answer Date Recorded PHQ-9 Total Score 0 12/08/2022 [facility] Occupat ional Health - Occupational [...] in a chcf (including now)? 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 Last Rx: 01/24/2023 30 capsule Refills: 11 Requested Prescriptions Pending Prescriptions Disp Refills DULoxetine (CYMBALTA) [address] capsule [Pharmacy Med Name: DULOXETINE DR 30MG CAPSULES] 7 capsule 0 Sig: TAKE 1 CAPSULE(30 MG) BY MOUTH 1 TIME EACH DAY FOR 7 DAYS. THEN INCREASE TO 60 MG DAILY PE GATHERER documented in this encounter Plan of Treatment Upcoming Encounters Date Type Department Care Team (Late st Contact Info) Description 08/26/2024 3:20 PM CDT Office Visit [facility] [address] [place] [address] [facility] [place] [address] Kirit Torres MD [address] [phone] 08/27/2024 2:40 PM CDT Office Visit [facility] [address] [place] [address] Kirit Torres MD [address] [phone] 09/02/2024 11:30 AM CDT [facility] [address] [place] [address] Rafat Lagunas MD [address] [place] [phone] 12/08/2024 8:00 AM SCRAPE GATHERER Office Visit [facility] [address] [place] [address] 12/11/2024 8:00 AM SCRAPE GATHERER Office Visit [facility] [address] 12/15/2024 8:20 AM SCRAPE GATHERER Office Visit [facility] [address] [place] [address] Kirit Torres MD [address] [phone] documented as of this encounter Visit Diagnoses Diagnosis Lumbar radicular syndrome Thoracic or lumbosacral neuritis or radiculitis, unspecified documented in this encounter Care Teams Car Conditioner Relationship Specialty Start Date End Date Kirit Torres MD [address] [place] [address] [place] [address] PCP - General 11/23/22 documented as of this encounter
--- OUTSIDE RECORDS SUMMARY | 2024-08-26 12:39 | XMS_ITS | Clinical Summary ---
Author Organization [facility] er Address [address] [place] [address] Care Team Providers Care Trains Dispatcher Supervisor Name Role Phone Kirit Torres MD Primary Care Provider Allergies No known active allergies Medications * This document contains information received from the source organization and may not represent a complete record from that organization. Turmeric 500 MG capsule Take 1 tablet by mouth 1 (one) time each day Active Magnesium 500 MG capsule Take by mouth Per patient only uses during winter months Active rivaroxaban (Xarelto) 20 MG tabletIndicatio ns:Atrial fibrillation, controlled (HCC) Take 1 tablet (20 mg total) by mouth 1 (one) time each day 90 tablet 3 12/11/19 24 Active finasteride (Propecia) 1 MG tabletIndicatio ns:Hair loss Take one tab a day for hair loss. Do not crush, chew, or split. 90 tablet 3 12/11/19 24 Active acetic acid-hydrocorti sone (VOSOL-HC) otic solutionIndicat ions:Itching of ear Administer 4 drops into affected ear(s) 4 (four) times a day if needed (itching) 10 mL 5 12/11/19 24 025 Active famotidine (PEPCID/ZANTAC 360) 20 MG tabletIndicatio ns:Gastroesopha geal reflux disease, unspecified whether esophagitis present TAKE 1 TABLET(20 MG) BY MOUTH TWICE DAILY 180 tablet 3 04/01/19 25 Active DULoxetine (CYMBALTA) [address] capsuleIndicati ons:Lumbar radicular syndrome TAKE 1 CAPSULE(60 MG) BY MOUTH 1 TIME EACH DAY. DO NOT CRUSH OR CHEW 90 capsule 1 05/06/19 25 Active Fluticasone-Richard meterol (ADVAIR DISKUS) 100-50 MCG/ACT diskus inhalerIndicati ons:Chronic obstructive pulmonary disease, unspecified COPD type (HCC) Inhale 1 puff 2 (two) times a day Rinse mouth with water after use to reduce aftertaste and incidence of candidiasis. Do not swallow. 60 each 2 08/01/19 25 026 Active dilTIAZem (TIAZAC) 240 MG 24 hr capsuleIndicati ons:Paroxysmal atrial fibrillation (HCC),Essential hypertension Take 1 capsule (240 mg total) by mouth 1 (one) time each day 90 capsule 3 08/01/19 25 Active hydroCHLOROthia zide (HYDRODIURIL) 25 MG tabletIndicatio ns:Primary hypertension Take 1 tablet (25 mg total) by mouth 1 (one) time each day 90 tablet 3 08/01/19 25 Active albuterol HFA (Ventolin HFA) 108 (90 Base) MCG/ACT inhalerIndicati ons:Wheezing Inhale 2 puffs every 4 (four) hours if needed for wheezing or shortness of breath 18 g 2 08/01/19 25 026 Active valsartan (Diovan) 160 MG tabletIndicatio ns:Primary hypertension Take 2 tablets (320 mg total) by mouth 1 (one) time each day 08/15/19 25 Active valsartan (Diovan) 80 MG tabletIndicatio ns:Primary hypertension Take one a day for blood pressure 90 tablet 3 12/10/19 24 025 Discontinued albuterol HFA (Ventolin HFA) 108 (90 Base) MCG/ACT inhalerIndicati ons:Wheezing Inhale 2 puffs every 4 (four) hours if needed for wheezing or shortness of breath 18 g 2 06/11/19 25 025 Discontinued(R eorder) traMADol (ULTRAM) 50 MG tablet TAKE 1-2 TABLETS BY MOUTH EVERY 6HR NEEDED FOR PAIN 06/18/19 25 025 Discontinued(T herapy Completed) dilTIAZem (TIAZAC) 240 MG 24 hr capsuleIndicati ons:Paroxysmal atrial fibrillation (HCC),Essential hypertension Take 1 capsule (240 mg total) by mouth 1 (one) time each day 30 capsule 06/26/19 25 025 Discontinued(R eorder) Umeclidinium [place] 62.5 MCG/ACT aerosol powderIndicatio ns:Chronic obstructive pulmonary disease, unspecified COPD type (HCC) Inhale 1 Inhalation 1 (one) time each day 30 each 06/26/19 25 025 Discontinued hydroCHLOROthia zide (HYDRODIURIL) 25 MG tabletIndicatio ns:Primary hypertension Take 1 tablet (25 mg total) by mouth 1 (one) time each day 30 tablet 07/16/19 25 025 Discontinued(R eorder) valsartan (Diovan) 160 MG tabletIndicatio ns:Primary hypertension Take 1 tablet (160 mg total) by mouth 1 (one) time each day 90 tablet 3 08/01/19 25 025 Discontinued Active Problems Problem Noted Date Diagnosed Date Obesity, morbid 07/31/2024 Dizziness and giddiness 12/18/2023 Bilateral impacted cerumen 12/18/2023 Cyst of pharynx 12/18/2023 Bilateral sensorineural hearing loss 12/10/2023 Osteoarthritis of spine with radiculopathy, lumbosacral region 07/11/2021 Foraminal stenosis of lumbosacral region 022 Overview (07/11/2021): MRI report received on 07/07/21, sent to scanning Paroxysmal atrial fibrillation 05/10/2021 Obesity, Class II, BMI 35-39.9 04/17/2021 LEONCIO (obstructive sleep apnea) 11/08/2020 Chronic back pain 09/01/2020 Benign prostatic hyperplasia with urinary freque ncy 08/18/2020 History of cardioversion 03/17/2020 Current use of [facility] 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 021 Sinus of Valsalva aneurysm 11/26/2019 Tinnitus of both ears 11/05/2019 Ventral hernia without obstruction or gangrene 1 Descending aortic aneurysm 10/31/2018 Essential hypertension 04/09/2018 Laryngopharyngeal reflux (LPR) 04/09/2018 Adjustment disorder with mixed anxiety and depre ssed mood 12/05/2017 Chronic hip pain, right 12/13/2016 Resolved Problems Problem Noted Date Diagnosed Date Resolved Date Persistent atrial fibrillation 11/26/2019 02/19/2024 Decreased hearing of both ears 11/05/2019 01/29/2024 Class 1 obesity due to exces s calories without serious comorbidity with body mass index (BMI) of 33.0 to 33.9 in adult 11/05/2019 Postoperative visit 01/09/2019 11/05/19 History of alcohol abuse 10/31/2018 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 10/31/2018 Encounters Date Type Department Care Team Description 08/26/2024 Nurse Triage [facility] [address] [place] [address] [place] [address] Kirit Torres MD 08/25/2024 8:20 AM CDT Clinical Support [facility] Juan Ramos[address] [place] [address] [place] [address] Essential hypertension (Primary Dx) 08/25/2024 8:00 AM CDT Lab [place] [address] [place] [address] [place] [address] Primary hypertension 08/25/[address] [address] Kirit Torres MD Pre-visit Labs 08/25/2024 Results Follow-Up Jose Juan Ramos[address] [place] [address] [place] [address] Kirit Torres MD Basic metabolic panel, Estimated Glomerular Filtration Rate (eGFR) 08/25/2024 Telephone [place] [address] [place] [address] [place] [address] Kirit Torres MD Fatigue 08/22/2024 Anticoagulation - Other Visit Anticoagulation [address] [place] [address] Traci Schulz RN Paroxysmal atrial fibrillation (HCC) (Primary Dx); Current use of [facility] 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 08/14/2024 9:00 AM CDT Clinical Support Jose Juan Hung [address] [place] [address] [place] [address] Primary hypertension (Primary Dx); Essential hypertension 08/14/2024 Telephone [place] [address] [address] Kirit Torres MD Nursing BP check and lab work 07/31/2024 11:20 AM CDT Office Visit [address] [address] Kirit Torres MD Obesity, morbid (HCC) (Primary Dx); Paroxysmal atrial fibrillation (HCC); Essential hypertension; Primary hypertension; Chronic obstructive pulmonary disease, unspecified COPD type (HCC); Wheezing; Lumbar radicular syndrome 07/31/2024 Refill [place] [address] [place] [address] Kirit Torres MD Chronic obstructive pulmonary disease, unspecified COPD type (HCC) 07/28/[address] [address] Kirit Torres MD Paroxysmal atrial fibrillation (HCC); Essential hypertension 07/18/2024 Telephone [facility] Sleep Medicine [address] [place] [address] Sara Bajwa MD 07/15/[address] [address] Kirit Torres MD Primary hypertension 07/15/[address] [address] Kirit Torres MD Med Refill 07/10/2024 1:20 PM CDT Office Visit [facility] Sleep Medicine [address] [place] [address] Sara Bajwa MD LEONCIO (obstructive sleep apnea) (Primary Dx); Paroxysmal atrial fibrillation (HCC); History of cardioversion; Essential hypertension 07/09/[address] [address] Kirit Torres MD Referral 06/27/[address] [address] Kirit Torres MD Chronic obstructive pulmonary disease, unspecified COPD type (HCC) 06/25/2024 3:40 PM CDT Office Visit [place] [address] [address] Kirit Torres MD Chronic obstructive pulmonary disease, unspecified COPD type (HCC) (Primary Dx); Paroxysmal atrial fibrillation (HCC); Essential hypertension 06/21/2024 Refill [place] [address] [address] Amol Carmichael MD Shortness of breath; Paroxysmal atrial fibrillation (HCC) 06/12/2024 Refill [place] [address] [address] Kirit Torres MD Hair loss 06/10/2024 3:20 PM CDT Office Visit [address] [address] Kirit Torres MD Medicare annual wellness visit, initial (Primary Dx); Paroxysmal atrial fibrillation (HCC); Wheezing 06/02/2024 3:10 PM CDT - 06/02/2024 11:59 PM CDT [facility] Encounter [facility] [address] [place] [address] [address] [place] [address] Discharge Disposition: Home or Self Care 05/29/2024 4:30 PM CDT Lab [address] [address] Primary hypertension; Hypomagnesemia 05/29/2024 2:40 PM CDT Consult [address] [address] Kirit Torres MD Pre-op evaluation (Primary Dx); Digital mucinous cyst; Wheezing; Primary hypertension; Paroxysmal atrial fibrillation (HCC); Hypomagnesemia; Immunization due from Last 3 Months Immunizations Immunization Administration Dates Next Due COVID-19, mRNA, LNP-S, PF, 30mcg/0.3mL dose Pfizer 05/18/2021,11/16/2020,05/13/2020,2020 COVID-19, mRNA, LNP-S, bival ent booster 12 yr and older, PF, 30mcg/0.3mL dose (pfizer) 10/15/2021 COVID-19, mRNA, LNP-s, PF, jed-succrose, 30mcg/0.3mL, COMIRNATY Ages 12+ 05/29/2024,11/26/2023 COVId-19, mRNA, LNP-s, PF, 50mcg/0.5mL Ages 12+ (Moderna Spikevax) 05/04/2023 Flu Vaccine 50-64yrs Flublok (Egg Free) 11/05/2019 Influenza 6mo-64yrs Quad Pre servative Free IM 10/15/2022,10/15/2021,11/05/2019,2018,01/21/2018,12/09/2015 Influenza, Adjuvanted, Triva lent, PF (FLUAD) 11/26/2023 Influenza, Split Virus, Triv alent, Preservative 11/02/2020,11/10/2016,12/31/2012,2008 Influenza, Unspecified 12/31/2012,11/02/2008 Influenza, injectable, MDCK, preservative free, quadrivalent, 0.5mL dose (Flucelvax) 10/15/2021 Pneumococcal Conjugate 13-Valent 11/05/2019 Pneumococcal Conjugate PCV20 11/26/2023 RSV bivalent protein subunit RSVpreF, 0.5mL PF, adults (Abyrsvo) 11/26/2023 Td 08/24/1997 Tdap 01/05/2018 Zoster Recombinant 03/20/2019,12/20/2018 Family History Medical History Relation Comments Hypertension Brother 1 Hypertension Brother 2 Hypertension Brother 3 Heart attack Father Prostate cancer Father Metastatic Prostatitis Father Lung disease Mother Breathing probl ems Hypertension Sister 1 Obesity Sister 1 Diabetes Sister 2 Hypertension Sister 2 Obesity Sister 2 6 one obese with DM other 5 have BP Hypertension Sister 3 Hypertension Sister 4 Hypertension Sister 5 Relation Status Comments Brother 1 Alive Brother 2 Car Accident Brother 3 Suicide Father (Age 74) Mother Sister 1 Alive Sister 2 Alive Sister 3 Alive Sister 4 Alive Sister 5 Alive Sister 6 Alive Social History Tobacco Use Types Packs/Day Years [...] Recorded In the past 12 months has th e electric, gas, oil, or water company [...] How often do you attend chur or hinduism services? More than 4 times per year [...] Date Recorded PHQ-9 Total Score 1 06/10/2024 [facility] - Occupational [...] place to sleep or slept in a half-way (including now)? No 12/08/2022 Housing Stability Vital Sign Answer Anup e Recorded In the last 12 months, was t here a time when you were not able to pay the mortgage or rent on time? No 06/10/2024 In the past 12 months, how m any times have you moved where you were living? 0 06/10/2024 At any time in the past 12 m [facility], were you homeless or living in a half-way (including now)? 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 02/06/1976 02/05/18 81 Last Filed Vital Signs Vital Sign Reading Time Taken Comments Blood Pressure 133/91 08/14/2024 8:29 AM CDT Pulse 71 08/14/2024 8:29 AM CDT Temperature 36.4 C (97.6 F) 07/31/2024 11:06 AM CDT Respiratory Rate 20 07/31/2024 11:06 AM CDT Oxygen Saturation 97% 07/31/2024 11:06 AM CDT Inhaled Oxygen Concentration - - Weight 124 kg (272 lb 9.6 oz) 07/31/2024 11:06 A M CDT Height 180.3 cm (5' 11) 07/10/2024 1:12 PM CDT Body Mass Index 38.02 07/10/2024 1:12 PM CDT Plan of Treatment Upcoming Encounters Date Type Department Care Team (Late st Contact Info) Description 08/26/2024 3:20 PM CDT Office Visit [place] [facility] [place] [address] Kirit Torres MD 1705 [facility] [address] [place] [address] 08/27/2024 2:40 PM CDT Office Visit Jose Juan Hung [address] [place] [address] Kirit Torres MD 1705 [facility] [address] [place] [address] 09/02/2024 11:30 AM CDT Office Visit Pain Management [address] [place] [address] [place] [address] [place] [phone] 12/08/2024 8:00 AM PHYSICAL THER Office Visit [address] [address] 12/11/2024 8:00 AM PHYSICAL THER Office Visit [address] [address] 12/15/2024 8:20 AM PHYSICAL THER Office Visit [address] [address] Kirit Torres MD [address] [address] Health Maintenance Due Date Last Done Comments CT Colonography 1958 FIT-DNA 1958 Sigmoidoscopy 1960 iFOBT 1960 Influenza Vaccine (#1) 2024 , 10/15/2022, 10/15/2021, Additional history exists Fall Risk Performed 05/15/2025 05/15/2024 Medicare Annual Wellness Visit (AWV) 06/10/2025 06/10/2024 Colonoscopy 11/19/2025 11/20/2015 Colorectal Cancer Screening 11/19/2025 DTaP,Tdap,and Td Vaccines (2 - Td or Tdap) 01/06/2028 01/05/2018, 08/24/1997 Zoster Vaccines Completed 03/20/2019, 12/20/2018 Pneumococcal Vaccine: 50+ Years Completed 11/26/2023, 11/05/2019 COVID-19 Vaccine Completed 05/29/2024, , 05/04/2023, Additional history exists HPV Vaccines Aged Out No longer eligi ble based on patient's age to complete this topic Medical Devices Implanted Type Area Institution Director Device Identifier Shelf Expiration Date Model / Serial / Lot Ventralight St W/ Echo2 11cm - [id number] Implanted:Qty: 1 on 12/31/2018 by Ned Arguelles MD at [facility] N/A: Abdomen 08/03/2019 [id number] / / [id number] Articulating Acoustical Installer 3 X 10 - [id number] Implanted:Qty: 1 on 12/31/2018 by Ned Arguelles MD at [facility] N/A: Abdomen 08/04/2021 [id number] / / [id number] Procedures Procedure Name Priority Date/Time Associated Diagnosis Comments ESTIMATED GLOMERULAR FILTRATION RATE (EGFR) Routine 08/25/2024 8:03 AM CDT Primary hypertension BASIC METABOLIC PANEL Routine 08/25/2024 8:03 AM CDT Primary hypertension XR CHEST 2 VIEWS Routine 06/02/2024 3:22 PM CDT Wheezing ESTIMATED GLOMERULAR FILTRATION RATE (EGFR) Routine 05/29/2024 3:56 PM CDT Primary hypertension MAGNESIUM Routine 05/29/2024 3:56 PM CDT Hypomagnesemia BASIC METABOLIC PANEL Routine 05/29/2024 3:56 PM CDT Primary hypertension from Last 3 Months Results * (ABNORMAL) Estimated Glomerular Filtration Rate (eGFR) (08/25/2024 8:03 AM CDT) Only the most recent of2 resultswithin the time period is included. Estimated Glomerular Filtration Rate (eGFR) 47(A) 08/25/2024 8:26 AM CDT [facility] Comment: GFR calculated from serum creatinine value Chronic Kidney Disease less than 60 mL/min/1.73 m2 Kidney Failure less than 15 mL/min/1.73 m2 Note: effective 02/01/2022: 2020 CKD-EPI Equation used 08/25/2024 8:03 AM CDT 08/25/2024 8:03 AM CDT us Kirit Torres MD LAB BLOOD ORDERABLES Final R esult [facility] [address] [place] [address] * (ABNORMAL) Basic metabolic panel (08/25/2024 8:03 AM CDT) Only the most recent of2 resultswithin the time period is included. Pathologist [facility] Sodium 137 135 - 145 mmol/L 08/25/2024 8:26 AM CDT [facility] [place] Potassium 4.6 3.5 - 5.1 mmol/L 08/25/2024 8:26 AM CDT [facility] [place] Chloride 104 98 - 107 mmol/L 08/25/2024 8:26 AM CDT [facility] [place] CO2 29 22 - 31 mmol/L 08/25/2024 8:26 AM CDT [facility] [place] Creatinine 1.6(H) 0.6 - 1.4 mg/dL 08/25/2024 8:26 AM CDT [facility] [place] BUN 23 5 - 25 mg/dL 08/25/2024 8:26 AM CDT [facility] [place] Glucose 115(H) 70 - 100 mg/dL 08/25/2024 8:26 AM CDT [facility] [place] Calcium, Total,S 10.5(H) 8.4 - 10.2 mg/dL 08/25/2024 8:26 AM CDT [facility] [place] Anion Gap 4 4 - 13 08/25/2024 8:26 AM CDT [facility] [place] Comment: The anion gap is calculated with the following formula: AGAP = Na ? (Cl + CO2). Fasting? Yes 08/25/2024 8:04 AM CDT [facility] [place] [place] [place] Blood (Blood, Venous) 08/25/2024 8:03 AM CDT 08/25/2024 8:03 AM CDT Kirit Torres MD LAB BLOOD ORDERABLES Final R esult [facility] [address] [place] [address] * X-ray Chest 2 Views (06/02/2024 3:22 PM CDT) Anatomical Region Laterality Modality Body, Chest, Lung Computed Radio graphy Impressions 06/02/2024 3:33 PM CDT No acute abnormality. Narrative 06/02/2024 3:33 PM CDT INDICATION: longstanding cough and shortness of breath COMPARISON: CT chest November 14, 2018 FINDINGS: XR CHEST 2 VIEWS No pulmonary vascular cephalization. Heart size is within normal limits. The aorta again demonstrates mild tortuosity. The lungs show no confluent infiltrate. No pneumothorax or pleural effusion. No acute bony abnormality. Procedure Note Barb Damian MD - 06/02/2024 INDICATION: longstanding cough and shortness of breath COMPARISON: CT chest November 14, 2018 FINDINGS: XR CHEST 2 VIEWS No pulmonary vascular cephalization. Heart size is within normal limits.The aorta again demonstrates mild tortuosity. The lungs show no confluentinfiltrate. No pneumothorax or pleural effusion. No acute bonyabnormality. IMPRESSION: No acute abnormality. Kirit Torres MD IMG XR PROCEDURES Final Resu lt * Magnesium (05/29/2024 3:56 PM CDT) Magnesium 2.1 1.6 - 2.3 mg/dL 05/30/2024 3:48 PM CDT [facility] Blood (Blood, Venous) 05/29/2024 3:56 PM CDT 05/30/2024 12:56 PM CDT us Kirit Torres MD LAB BLOOD ORDERABLES Final R esult [facility] [address] [place] [address] from Last 3 Months Insurance [facility] MEDIC[facility] ADVANTAGE Advance Directives For more information, please contact: [phone] Documents on File Type Date Recorded Patient Corrosion Prevention Metal Sprayer Expl anation Advance Directive 04/30/2020 2:18 PM Advan ce Directive Advance Directives and Living Will 04/30/2020 2:19 PM * Full Code (Latest Code Status on File) Date Activated Date Inactivated Comments 04/22/2021 1:45 PM 04/22/2021 6:59 PM * Full Code Date Activated Date Inactivated Comments 02/05/2020 1:14 PM 02/05/2020 8:21 PM * Full Code Date Activated Date Inactivated Comments 12/31/2018 2:23 PM 12/31/2018 7:46 PM Care Teams Trains Dispatcher Supervisor Relationship Specialty Start Date End Date Kirit Torres MD [address] [place] [address] PCP - General 11/23/22
--- OUTSIDE RECORDS SUMMARY | 2024-08-26 12:39 | XMS_ITS | Encounter Summary ---
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 Never 06/10/2024 [facility] Utilities Answer Date Recorded In the past 12 months has th e [employer] gas, oil, or water [employer] threatened to shut off services in your [...] How often do you attend chur or amish services? More than 4 times per year 06/10/2024 Do you belong to any clubs o r organizations such as worship groups, unions, fraternal or athletic groups, or [...] Recorded PHQ-9 Total Score 1 06/10/2024 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 Anticoagulation: DOAC follow up Patient is currently on Xarleto 20 mg daily for diagnosis of Atrial Fibrillation. Date of last PCP visit: 07/31/[address] provided [address] Dr. Kirit Torres on 12/11/23 for a 3 month supply with 3 refills. Date of last CBC: 04/23/2024 Hemoglobin: 15.3 Hematocrit: 45.3 Platelets: 217 Date of last BMP: 08/25/24 GFR: 47 Creatinine: 1.6 Creatinine Clearance: 79 Liver labs: last done 12/10/23 Due to long-term use of Xarelto, [facility] recommends rechecking liver labs in December of 2024, CBC April 2025 and BMP per PCP discretion due to out of range values. [facility] recommends to continue dosing of Xarelto 20 mg daily. documented in this encounter Plan of Treatment Upcoming Encounters Date Type Department Care Team (Late st Contact Info) Description 08/26/2024 3:20 PM CDT Office Visit [address] [address] Kirit Torres MD [address] [phone] 08/27/2024 2:40 PM CDT Office Visit [address] [address] Kirit Torres MD [address] [place] [address] 09/02/2024 11:30 AM CDT Office Visit [facility] [address] [place] [address] [place]unas [place] [address] [place] [address] 12/08/2024 8:00 AM [facility] Office Visit [address] [address] 12/11/2024 8:00 AM [facility] Office Visit [address] [address] 12/15/2024 8:20 AM [facility] Office Visit [address] [address] Kirit Torres MD [address] [phone] Scheduled Orders Name Type Priority Associated Diagnoses Orde r Schedule Liver panel Lab Routine Paroxysmal atrial fibrillation (HCC) Current use of 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 marine oil terminal 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 Expected: 12/08/2024, Expires: 08/25/2025 CBC ([facility]) Lab Routine Paroxysmal atrial fibrillation (HCC) 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
--- OUTSIDE RECORDS SUMMARY | 2024-08-26 12:39 | XMS_ITS | Encounter Summary ---
Author Organization [facility] er Address [address] [place] [address] Care Team Providers Care Internal Grinding Machine Operator Name Role Phone Kirit Torres MD Primary Care Provider Reason for Visit * Reason Onset Date Comments Pre-visit Labs 08/25/2024 Encounter Details Date Type Department Care Team (Late st Contact Info) Description 08/25/2024 Telephone [place] [address] [place] [address] Kirit Torres MD [address] [place] [address] Pre-visit Labs Social History Tobacco Use Types Packs/Day Years Used Date Smoking Tobacco: Former Cigarettes 0.4 2 1 295 - 9625 Smokeless Tobacco: Never Alcohol Use Standard Drinks/Week Comments No 0 (1 standard drink = 0.6 oz pur e alcohol) sober since 1999 B1300 Health Literacy Answer Date Recor ded How often do you need to hav e someone help you when you read instructions, pamphlets, or other written material from your doctor or pharmacy? Never 06/10/2024 [facility] Utilities Answer Date Recorded In the [...] How often do you attend chur or anabaptism services? 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 02/06/1978 02/05/18 83 documented as of this encounter Miscellaneous Notes * Telephone Encounter - Jessica Galicia RN - 08/25/2024 2:43 PM CDT Last visit in the department 07/31/2024 Upcoming visit with provider 08/27/2024 Patient Active Problem List Diagnosis Date Noted Obesity, morbid (HCC) 07/31/2024 Dizziness and giddiness 12/18/2023 Bilateral impacted cerumen 12/18/2023 Cyst of pharynx 12/18/2023 Bilateral sensorineural hearing loss 12/10/2023 Osteoarthritis of spine with radiculopathy, lumbosacral region 07/11/2021 Foraminal stenosis of lumbosacral region 07/11/2021 Paroxysmal atrial fibrillation (HCC) 05/10/2021 Obesity, Class II, BMI 35-39.9 04/17/2021 LEONCIO (obstructive sleep apnea) 11/08/2020 Chronic back pain 09/01/2020 Benign prostatic hyperplasia with urinary frequency 08/18/2020 History of cardioversion 03/17/2020 Current use of bed bug exterminator 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 03/17/2020 Sinus of Valsalva aneurysm 11/26/2019 Tinnitus of both ears 11/05/2019 Ventral hernia without obstruction or gangrene 12/04/2018 Descending aortic aneurysm 10/31/2018 Essential hypertension 04/09/2018 Laryngopharyngeal reflux (LPR) 04/09/2018 Adjustment disorder with mixed anxiety and depressed mood 12/05/2017 Chronic hip pain, right 12/13/2016 Completed labs related to registries: Lab Results Component Value Date TSH 2.75 12/10/2023 GLUCOSE 115 (H) 08/25/2024 CHOL 142 12/10/2023 TRIG 151 (H) 12/10/2023 HDL 28 (L) 12/10/2023 LDLCALC 84 12/10/2023 NA 137 08/25/2024 K 4.6 08/25/2024 CL 104 08/25/2024 CO2 29 08/25/2024 CREATININE 1.6 (H) 08/25/2024 BUN 23 08/25/2024 CALCIUM 10.5 (H) 08/25/2024 Future pending labs: Lab Frequency Next Occurrence Vitamin D, Total Once 12/10/2024 Lipid panel Once 12/10/2024 Hemoglobin A1c Once 12/10/2024 PSA Once 12/10/2024 Liver panel Once 12/08/2024 CBC ([facility]) Once 04/06/2025 Urinalysis with reflex microscopic (lab staff release/collect) Once 12/10/2024 Microalbumin/Creatinine Ratio Once 12/10/2024 Patient meets lab protocols. Labs orders signed per protocol. Please advise if any other labs are needed. * Telephone Encounter - Babs Cedeno - 08/25/2024 2:05 PM CDT Pt is scheduled for labs on 12-11 and a Physical on 12-[address] Torres. Please order pre-visit labs. (There are already some labs ordered, I just wanted to make sure that Dr. Torres didn't want any other additional labs ordered for his Physical). Thanks. documented in this encounter Plan of Treatment Upcoming Encounters Date Type Department Care Team (Late st Contact Info) Description 08/26/2024 3:20 PM CDT Office Visit [address] [address] Kirit Torres MD [address] [address] 08/27/2024 2:40 PM CDT Office Visit [address] [address] Kirit Torres MD [address] [place] [address] 09/02/2024 11:30 AM CDT Office Visit [facility] [address] [place] [address] [place]as [place] [address] [place] [address] 12/08/2024 8:00 AM PICK OUT HAND Office Visit [address] [address] 12/11/2024 8:00 AM PICK OUT HAND Office Visit [address] [address] 12/15/2024 8:20 AM PICK OUT HAND Office Visit [address] [address] Kirit Torres MD [address] [facility] 20 [place] [address] Scheduled Orders Name Type Priority Associated Diagnoses Orde r Schedule Urinalysis with reflex microscopic (lab staff release/collect) Lab Routine Essential hypertension Expected: 12/10/2024, Expires: 08/25/2025 Microalbumin/Creatinine Ratio Lab Routine Essential hypertension Expected: 12/10/2024, Expires: 08/25/2025 documented as of this encounter Visit Diagnoses Diagnosis Essential hypertension- Primary Unspecified essential hypertension documented in this encounter Care Teams Internal Grinding Machine Operator Relationship Specialty Start Date End Date Kirit Torres MD [address] [place] [address] PCP - General 11/23/22 documented as of this encounter
--- OUTSIDE RECORDS SUMMARY | 2024-08-26 12:39 | XMS_ITS | Encounter Summary ---
Author Organization [facility] er Address [address] [place] [address] Care Team Providers Care Wood Lathe Operator Name Role Phone Kirit Torres MD Primary Care Provider [phone] Encounter Details Date Type Department Care Team (Late st Contact Info) Description 08/25/2024 Results Follow-Up [place] [address] [address] Kirit Torres MD 1705 [facility] 20 [place] [address] Basic metabolic panel, Estimated Glomerular Filtration Rate (eGFR) Social History Tobacco Use Types Packs/Day Years [...] from your doctor or pharmacy? Never 06/10/2024 [facility] Utilities Answer Date Recorded In the past 12 months has e [employer], gas, oil, or water [employer] threatened to shut off services in your [...] How often do you attend chur or jew services? 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 Torres for a follow-up appointment on 08-27... Thanks. * Telephone Encounter - Whit Gutierrez LPN - 08/25/2024 8:52 AM CDT Please see message below and call to schedule. * Result Encounter Note - Kirit Torres MD - 08/25/2024 8:29 AM CDT Kidney function is reduced and his last BP was elevated. Please schedule a follow up visit with me to review next steps. documented in this encounter Plan of Treatment Upcoming Encounters Date Type Department Care Team (Late st Contact Info) Description 08/26/2024 3:20 PM CDT Office Visit [address] [address] Kirit Torres MD [address] [place] [phone] 08/27/2024 2:40 PM CDT Office Visit [address] [address] Kirit Torres MD [address] [place] [address] 09/02/2024 11:30 AM CDT Office Visit [facility] [address], [place] [address] Rafat Lagunas MD [address] [place] [address] 12/08/2024 8:00 AM WIREWORKER Office Visit [address] [address] 12/11/2024 8:00 AM WIREWORKER Office Visit [address] [address] 12/15/2024 8:20 AM WIREWORKER Office Visit [address] [address] Kirit Torres MD [address] [address] documented as of this encounter Visit Diagnoses Not on filedocumented in this encounter Care Teams Wood Lathe Operator Relationship Specialty Start Date End Date Kirit Torres MD 17[address] [facility] 20 [place] [address] PCP - General 11/23/22 documented as of this encounter
--- OUTSIDE RECORDS SUMMARY | 2024-08-26 12:39 | XMS_ITS | Encounter Summary ---
Author Organization [facility] er Address [address] [place] [address] Care Team Providers Care Document Manager Name Role Phone Kirit Torres MD Primary Care Provider Reason for Visit * Reason Onset Date Comments Fatigue 08/25/2024 Encounter Details Date Type Department Care Team (Late st Contact Info) Description 08/25/2024 Telephone [place] [address] [place] [address] Kirit Torres MD 1705 [facility] 20 [place] [address] Fatigue Social History Tobacco Use Types Packs/Day Years Used Date Smoking Tobacco: Former Cigarettes 0.4 2 1 175 - 1976 Smokeless Tobacco: Never Alcohol Use [...] In the past 12 months has e [employer], gas, oil, or water [employer] threatened to shut off services in your [...] How often do you attend chur or nondenominational services? More than 4 times per year [...] Date Recorded PHQ-9 Total Score 1 06/10/2024 [facility] [place] of Occupat ional Health - Occupational Stress [...] place to sleep or slept in a retirement (including now)? No 12/08/2022 Housing Stability Vital [...] were you homeless or living in a retirement (including now)? 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 * Telephone Encounter - Kirit Torres MD - 08/25/2024 8:26 AM CDT Per last note: If persistent symptoms despite maintaining cardiopulmonary conditioning regimen andweight loss, would recommend follow up with Dr. [facility] to review if his chronotropic incompetence needs further specialist management He may need medication adjustment (lower dose of calcium channel izabela) or further evaluation forinadequate heart rate response. He had a chest xray in May that was normal I don't think he needsthat again at this time. * Telephone Encounter - Florinda Sarabia LPN - 08/25/2024 8:16 AM CDT The patient was in today for lab work and mentioned that Dr. Torres wanted him to maybe have a xray of his chest as a next step. The patient was thinking possibly doing a abdomen xray as well at the same time. He is becoming more fatigued and taking his normal walks are causing more fatigue and shortness of breath. He is willing to have an xray at this time. Please advise. documented in this encounter Plan of Treatment Upcoming Encounters Date Type Department Care Team (Late st Contact Info) Description 08/26/2024 3:20 PM CDT Office Visit [place] [address] [address] [place] [address] Kirit Torres MD [address] [place] [address] 08/27/2024 2:40 PM CDT Office Visit [place] 1705 [facility] 20 [place] [address] Kirit Torres MD [address] [place] [address] 09/02/2024 11:30 AM CDT [facility] [address] [place] [address] [place] [address] [place] [address] 12/08/2024 8:00 AM ECO INDUSTRIAL DEVELOPMENT CONSULTANT Office Visit [place] [address] [place] [address] [place] [address] 12/11/2024 8:00 AM ECO INDUSTRIAL DEVELOPMENT CONSULTANT Office Visit [place] [address] [place] [address] 12/15/2024 8:20 AM ECO INDUSTRIAL DEVELOPMENT CONSULTANT Office Visit [place] [address] [place] [address] [place] [address] Kirit Torres MD [address] [place] [address] documented as of this encounter Visit Diagnoses Not on filedocumented in this encounter Care Teams Document Manager Relationship Specialty Start Date End Date Kirit Torres MD [address] [place] [address] PCP - General 11/23/22 documented as of this encounter
== END 2024-08-26 12:35 | disposition home or self-care (01) ==
PROVIDERS: Emergency Provider Family Medicine; PCP Family Medicine
DX: R06.02 Shortness of breath (principal); R53.83 Other fatigue
CPT/HCPCS: 99283

== ENCOUNTER 2024-10-10 17:05 | Emergency (ER) | payer MEDICARE, SELFPAY ==
--- OUTSIDE RECORDS SUMMARY | 2024-08-26 15:20 | XMS_ITS | Encounter Summary ---
Author Organization [facility] er Address [address] [place] [address] Care Team Providers Care Brush Sander Name Role Phone Kirit Torres MD Primary Care Provider [phone] Reason for Visit * Reason Comments Follow-up Patient in ED chitra child anhmarcia. Encounter Details Date Type Department Care Team (Late st Contact Info) Description 08/26/2024 3:20 PM CDT Office Visit [place] [facility] [address] [place] [address] Kirit Torres MD [address] [place] [address] 20 [place] [address] Elevated serum creatinine (Primary Dx); Paroxysmal atrial fibrillation (HCC); Essential hypertension; Primary hypertension; Atrial fibrillation, controlled (HCC); Elevated fasting glucose Social History Tobacco Use Types Packs/Day Years [...] from your doctor or pharmacy? 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 02/06/1976 02/05/18 83 documented as of this encounter Last Filed Vital Signs Vital Sign Reading Time Taken Comments Blood Pressure 144/99 08/26/2024 3:12 PM CDT Pulse 85 08/26/2024 3:12 PM CDT Temperature 36.1 C (96.9 F) 08/26/2024 3:12 PM CDT Respiratory Rate 20 08/26/2024 3:12 PM CDT Oxygen Saturation 91% 08/26/2024 3:12 PM CDT Inhaled Oxygen Concentration - - Weight 124 kg (274 lb) 08/26/2024 3:12 PM CDT Height - - Body Mass Index 38.22 07/10/2024 1:12 PM CDT documented in this encounter Progress Notes * Kirit Torres MD - 08/26/2024 3:20 PM CDT Chief Complaint Patient presents with Follow-up Patient in ED this morning. History of Present Illness The patient presents with shortness of breath, fatigue, and decreased exercise tolerance. He neededsix rest stops during a one-hour walk and reported leg weakness, shoulder blade pain, and jaw discomfort preventing him from chewing gum for more than 10 minutes. He is uncertain if these symptoms are related to his GERD. His ER doctor advised weight loss of 24 pounds. He plans to resume weightlifting and discontinue Mountain Dew. He takes valsartan 320 mg once daily at night. He has not taken Xarelto for 3-4 days and requests a refill. He discontinued magnesium, turmeric, and Tylenol, which hehad taken five times daily for 15-20 years, and stopped Aleve before workouts or walks. A stress test showed good heart function, though they weren't able to get him up to the higher heart rate so was indeterminate. He reports feeling well overall, with good appetite and adequate sleep. On Sunday, he alternated between a whirlpool and swimming pool four or five times. After showering, he felt unsure about his stamina. On Sunday, he attempted an hour-long walk, pushing himself due to recent inactivity, needing a 5-8 minute break and struggling towards the end. Today, he felt as though he was in atrial fibrillation after climbing stairs, a sensation he has experienced before, but did not feel this way during the office visit. Patient Active Problem List Diagnosis Adjustment disorder with mixed anxiety and depressed mood Essential hypertension Laryngopharyngeal reflux (LPR) Descending aortic aneurysm Ventral hernia without obstruction or gangrene Chronic hip pain, right Tinnitus of both ears Sinus of Valsalva aneurysm History of cardioversion Current use of skilled nursing 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 Benign prostatic hyperplasia with urinary frequency Chronic back pain LEONCIO (obstructive sleep apnea) Obesity, Class II, BMI 35-39.9 Paroxysmal atrial fibrillation (HCC) Osteoarthritis of spine with radiculopathy, lumbosacral region Foraminal stenosis of lumbosacral region Bilateral sensorineural hearing loss Dizziness and giddiness Bilateral impacted cerumen Cyst of pharynx Obesity, morbid (HCC) Objective Vitals: 08/26/24 1512 BP: (!) 144/99 BP Location: Left arm Patient Position: Sitting BP Cuff Size: Adult long Pulse: 85 Resp: 20 Temp: (!) 36.1 ??C (96.9 ??F) TempSrc: Temporal SpO2: 91% Weight: 124 kg (274 lb) Physical Exam General Appearance: Normal. Cardiovascular: Regular rate and rhythm, no murmurs, rubs, or gallops. Gastrointestinal: Soft, non-tender, no distention, no masses. Results -BMP: Recent Results (from the past week) Basic metabolic panel Collection Time: 08/25/24 8:03 AM Result Value Ref Range Sodium 137 135 - 145 mmol/L Potassium 4.6 3.5 - 5.1 mmol/L Chloride 104 98 - 107 mmol/L CO2 29 22 - 31 mmol/L Creatinine 1.6 (H) 0.6 - 1.4 mg/dL BUN 23 5 - 25 mg/dL Glucose 115 (H) 70 - 100 mg/dL Calcium, Total,S 10.5 (H) 8.4 - 10.2 mg/dL Anion Gap 4 4 - 13 Fasting? Yes Estimated Glomerular Filtration Rate (eGFR) Collection Time: 08/25/24 8:03 AM Result Value Ref Range Estimated Glomerular Filtration Rate (eGFR) 47 (A) 04/23/24: Creatinine: 1.0 Assessment & Plan Shortness of breath: Reports shortness of breath, fatigue, and decreased exercise tolerance. [facility] earlier today. I reviewed their documentation. EKG showed no atrial fibrillation. Exam reassuring here as well. Currently on diltiazem (we had switched off beta izabela to see if this helped with breathing as concern for obstructive lung disease at that time but this did not help). Suspected AV blocking agents may be contributing to symptoms by reducing heart rate. Plan: - Discontinue diltiazem and start metoprolol 25 mg once daily for 5 days, then reduce to 25 mg oncedaily thereafter. - If symptoms do not improve in a couple of weeks, consider cardiology referral for pacemaker evaluation. Uncontrolled HTN: Blood pressure readings consistently high during office visits, normal in ER today at 104/73. Plan: - Continue valsartan 320 mg once daily and monitor blood pressure closely. - If blood pressure remains elevated, consider adding amlodipine. Elevated creatinine: Creatinine level 1.6. Plan: - Discontinue [id number] medications and supplements, including Tylenol and Aleve, and maintain hydration. - Recheck creatinine level next week. - If creatinine levels remain high or increase, discontinue valsartan and investigate potential underlying kidney issues with renal ultrasound including doppler for renal artery stenosis. Prediabetes: Glucose level 115. Plan: - Conduct A1c test in December during annual labs. - Reduce sugar intake, particularly from Mountain Dew, to manage blood sugar levels. Medication management: Has not taken Xarelto for the past few days and requires a refill. Plan: - Prescription for Xarelto 20 mg once daily sent to pharmacy. Follow-up: Lab recheck 1 week; Office visit 2 weeks. Diagnosis Plan 1. Elevated serum creatinine Creatinine, Serum 2. Paroxysmal atrial fibrillation (HCC) metoprolol succinate XL (Toprol XL) 25 MG 24 hr tablet rivaroxaban (Xarelto) 20 MG tablet 3. Essential hypertension 4. Primary hypertension valsartan (Diovan) 320 MG tablet 5. Atrial fibrillation, controlled (HCC) 6. Elevated fasting glucose There are no Patient Instructions on file for this visit. documented in this encounter Plan of Treatment Upcoming Encounters Date Type Department Care Team (Late st Contact Info) Description 10/28/2024 8:20 AM CDT Clinical Support [address] [address] 12/08/2024 8:00 AM FOURDRINIER TENDER Office Visit [address] [address] 12/11/2024 8:00 AM FOURDRINIER TENDER Office Visit [address] [address] 12/15/2024 8:20 AM FOURDRINIER TENDER Office Visit [address] [address] Kirit Torres MD [address] [place] [address] documented as of this encounter Results * (ABNORMAL) Creatinine, Serum (09/02/2024 3:05 PM CDT) Creatinine 1.6(H) 0.6 - 1.4 mg/dL 09/02/2024 3:23 PM CDT [facility] Blood (Blood, Venous) 09/02/2024 3:05 PM CDT 09/02/2024 3:05 PM CDT us Kirit Torres MD LAB BLOOD ORDERABLES Final R esult [facility] [place] [address] [place] [address] documented in this encounter Visit Diagnoses Diagnosis Elevated serum creatinine- Primary Other nonspecific findings on examination of blood Paroxysmal atrial fibrillation (HCC) Atrial fibrillation Essential hypertension Unspecified essential hypertension Primary hypertension Unspecified essential hypertension Atrial fibrillation, controlled (HCC) Elevated fasting glucose Impaired fasting glucose documented in this encounter Care Teams Brush Sander Relationship Specialty Start Date End Date Kirit Torres MD [address] [facility] [address] [place] [address] PCP - General 11/23/22 documented as of this encounter
--- OUTSIDE RECORDS SUMMARY | 2024-09-02 11:30 | XMS_ITS | Encounter Summary ---
Author Organization [facility] er Address [address] [place] [address] Care Team Providers Care Admissions Manager Rn Name Role Phone Kirit Torres MD Primary Care Provider [phone] Reason for Visit * Reason Comments Follow-up Follow up-low back p ain/LLE pain seen 01/17/2022 for consult- Duloxetine, possible MYNOR if no improvement with medication Encounter Details Date Type Department Care Team (Late st Contact Info) Description 09/02/2024 11:30 AM CDT Office Visit [facility] [address] [place] [id number] Rafat Lagunas MD [address] [place] [phone] Spinal stenosis of lumbar region with neurogenic claudication (Primary Dx) Social History Tobacco Use Types [...] your doctor or pharmacy? Never 06/10/2024 [facility] Utilities Answer Date Recorded In the past 12 months has [facility] [employer], gas, oil, or water [employer] threatened to shut off services in your [...] often do you attend chur ch or religion services? More than 4 times per year 06/10/2024 Do you belong to any clubs o r organizations such as moravian groups, unions, fraternal or athletic groups, or [...] Date Recorded PHQ-9 Total Score 1 06/10/2024 [facility] of Occupat ional Health - Occupational Stress [...] place to sleep or slept in a alf (including now)? No 12/08/2022 Housing Stability Vital Sign Answer Anup e Recorded In the last 12 months, was t here a time when you were not able to pay the mortgage or rent on time? No 06/10/2024 In the past 12 months, how m any times have you moved where you were living? 0 06/10/2024 At any time in the past 12 m [facility], were you homeless or living in a alf (including now)? 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 Usual Dosin mg per day to start slowly increased to 8775-0326 mg/day. Possible Side Effects Include: somnolence (sleepiness), weight gain, edema, dizziness, ataxia (unsteadiness, clumsiness), depression, tremor, and/or diplopia (double vision). Instructions: Take these pills/capsules with water. Do not chew or crush them. Fast Dose Titration AM Noon PM Day 1: 300 mg Day 2: 300 300 mg Day 3: 300 300 300 mg Day 4: 300 300 600 mg Day 5: 300 600 600 mg Day 6: 600 600 600 mg And continue at 600 mg 3 times a day documented in this encounter Progress Notes * Rafat Lagunas MD - 09/02/2024 11:30 AM CDT Estab Patient Visit Primary Doctor: Kirit Torres MD Date of Service: 09/02/2024 Chief Complaint: Low back and BLE pain History of Present Illness: Erasto Ramos is a 64 y.o. old male who presents to the clinic in person for follow up of low back and BLE pain. The pain is 5/10 on average, is worse with walking. He reports numbness/tingling in the BLEs. He reports weakness in the BLEs . He denies bowel or bladder incontinence. He denies any major changes in their health since the last visit. Past Medical History: Past Medical History: Diagnosis Date Alcohol abuse, in remission sober 1999 Anxiety, generalized sees Dr Johnathon Phillips for impulse control and mood management Atrial fibrillation (HCC) 12/07/2017 [facility] Atrial fibrillation (HCC) BPH (benign prostatic hyperplasia) Exertional dyspnea fall 2017 GERD (gastroesophageal reflux disease) History of alcohol abuse 10/31/2018 HL (hearing loss) Hypertension Low back pain associated with a spinal disorder other than radiculopathy or spinal stenosis 2017 Previous history of chronic lower back pain actually pain in right groin, down bilateral medial thigh to medial ankle and great toe. MRI lumbar spine 05/10/17 [facility]: Multilevel degenerative spondylosis with dextrocnvex scoliosos through out the lumbar segment with no change from MRI of 05/25/16. Greatest degress of central canal narrowkiing is seen at the L3-4 level related to facet arthropa Osteoarthritis of both hips right total hip 11/29/15 Tinnitus Varicella Past Surgical History: Past Surgical History: Procedure Laterality Date COLONOSCOPY 2013 [place] normal TOTAL HIP ARTHROPLASTY Right 11/29/2015 [place] Family History: Family History Problem Relation Age of Onset Lung disease Mother Breathing problems Prostate cancer Father 74 Metastatic Heart attack Father Prostatitis Father Obesity Sister Hypertension Sister Obesity Sister 6 one obese with DM other 5 have BP Diabetes Sister Hypertension Sister Hypertension Sister Hypertension Sister Hypertension Sister Hypertension Brother Hypertension Brother Hypertension Brother Social History: Social History Tobacco Use Smoking status: Former Current packs/day: 0.00 Average packs/day: 0.4 packs/day for 2.0 years (0.8 ttl pk-yrs) Types: Cigarettes Start date: 1974 Quit date: 1976 Years since quittin.6 Smokeless tobacco: Never Vaping Use Vaping status: Never Used Substance Use Topics Alcohol use: No Comment: sober since 1999 Drug use: Yes Types: Marijuana Comment: twice per week for 2 years Allergies: Patient has no known allergies. Medications: Current Outpatient Medications Medication Sig Dispense Refill acetic acid-hydrocortisone (VOSOL-HC) otic solution Administer 4 drops into affected ear(s) 4 (four) times a day if needed (itching) 10 mL 5 albuterol HFA (Ventolin HFA) 108 (90 Base) MCG/ACT inhaler Inhale 2 puffs every 4 (four) hours if needed for wheezing or shortness of breath 18 g 2 DULoxetine (CYMBALTA) [address] capsule TAKE 1 CAPSULE(60 MG) BY MOUTH 1 TIME EACH DAY. DO NOT CRUSHOR CHEW 90 capsule 1 famotidine (PEPCID/ZANTAC 360) 20 MG tablet TAKE 1 TABLET(20 MG) BY MOUTH TWICE DAILY 180 tablet 3 finasteride (Propecia) 1 MG tablet Take one tab a day for hair loss. Do not crush, chew, or split. 90 tablet 3 Fluticasone-Salmeterol (ADVAIR DISKUS) 100-50 MCG/ACT diskus inhaler Inhale 1 puff 2 (two) times a day Rinse mouth with water after use to reduce aftertaste and incidence of candidiasis. Do not swallow. 60 each 2 hydroCHLOROthiazide (HYDRODIURIL) 25 MG tablet Take 1 tablet (25 mg total) by mouth 1 (one) time each day 90 tablet 3 metoprolol succinate XL (Toprol XL) 25 MG 24 hr tablet Take 2 tablets (50 mg total) by mouth 1 (one) time each day for 5 days, THEN 1 tablet (25 mg total) 1 (one) time each day. Do not crush or chew.100 tablet 0 rivaroxaban (Xarelto) 20 MG tablet Take 1 tablet (20 mg total) by mouth 1 (one) time each day 90 tablet 3 valsartan (Diovan) 320 MG tablet Take 1 tablet (320 mg total) by mouth 1 (one) time each day 90 tablet 3 No current facility-administered medications for this visit. Review of Systems CONSTITUTIONAL: no fever or chills GI: no bowel incontinence : no bladder incontinence MUSCULOSKELETAL: as above NEURO: as above Physical Examination: General: Patient is alert and orientated, and in no obvious distress Head: normocephalic and atraumatic Respiratory: non labored breathing Psychological: appropriate mood and affect Musculoskeletal: Lumbar: No abnormalities Sacral/Caudal: No abnormalities Diagnosis/Impression: Mr. Erasto Ramos is a 64 y.o. male seen today for follow up with: Encounter Diagnosis Name Primary? Spinal stenosis of lumbar region with neurogenic claudication Yes Plan: 1) Medical Modalities: Discussed gabapentin. He would like to hold off at this point. 2) Interventional Modalities: Discussed a lumbar MYNOR. He would like to hold off at this point. 3) Therapy Modalities: Continue HEP 4) Behavioral Medicine Modalities: none 5) Imaging/Labs: Discussed a lumbar MRI. He would like to hold off at this point. 6) Consults: none Education: See patient instructions. Treatment plan fully discussed and agreed upon with patient. All questions were answered. Patient was provided with educational material about the medications and proceduresdiscussed during the visit with detailed information on the risks associated with the procedure. Rafat Lagunas MD documented in this encounter Plan of Treatment Upcoming Encounters Date Type Department Care Team (Late st Contact Info) Description 10/28/2024 8:20 AM CDT Clinical Support [facility] [address] [place] [address] 12/08/2024 8:00 AM ECHOCARDIOGRAPHY TECHNOLOGIST Office Visit [facility] [address] [place] [address] 12/11/2024 8:00 AM ECHOCARDIOGRAPHY TECHNOLOGIST Office Visit [facility] Hung [address] [place] [address] 12/15/2024 8:20 AM ECHOCARDIOGRAPHY TECHNOLOGIST Office Visit Damian Hung [address] [place], [place] [address] [address] Kirit Torres MD [address] [place] [address] documented as of this encounter Visit Diagnoses Diagnosis Spinal stenosis of lumbar region with neurogenic claudication- Primary documented in this encounter Care Teams Admissions Manager Rn Relationship Specialty Start Date End Date Kirit Torres MD [address] [place] [address] PCP - General 11/23/22 documented as of this encounter
--- OUTSIDE RECORDS SUMMARY | 2024-09-02 14:45 | XMS_ITS | Encounter Summary ---
Author Organization [facility] er Address [address] [place] [address] Care Team Providers Care Ecology Teacher Name Role Phone Kirit Torres MD Primary Care Provider Encounter Details Date Type Department Care Team (Late st Contact Info) Description 09/02/2024 2:45 PM CDT Lab [place] [address] [place] [address] Elevated serum creatinine Social History Tobacco Use Types Packs/Day Years Used Date Smoking Tobacco: Former Cigarettes 0.4 2 1 145 - 1976 Smokeless Tobacco: Never Alcohol Use Standard Drinks/Week Comments No 0 (1 standard drink = 0.6 oz pur e alcohol) sober since 1999 [id number] Health Literacy Answer Date Recor ded How often do you need to hav e someone help you when you read instructions, pamphlets, or other written material from your doctor or pharmacy? Never 06/10/2024 [facility] Utilities Answer Date Recorded In the past 12 months has e electric, gas, oil, or water [employer] threatened to shut off services in your [...] How often do you attend chur or alevism services? More than 4 times per year 06/10/2024 Do you belong to any clubs o r organizations such as shinto groups, unions, fraternal or athletic groups, or [...] Score 1 06/10/2024 [facility] - Occupational Stress Questionnaire Answer Date [...] to sleep or slept in a senior care (including now)? No 12/08/2022 Housing Stability Vital [...] time in the past 12 m [facility], were you homeless or living in a senior care (including now)? No 06/10/2024 Interpersonal Safety Questionnaire Answer Date Recorded How often does anyone, morenitajameson rich family and friends, physically hurt you? [...] Description 10/28/2024 8:20 AM CDT Clinical Support [address] [address] 12/08/2024 8:00 AM PRODUCTION CLERK Office Visit [address] [address] 12/11/2024 8:00 AM PRODUCTION CLERK Office Visit [address] [address] 12/15/2024 8:20 AM PRODUCTION CLERK Office Visit [address] [address] Kirit Torres MD [address] [phone] documented as of this encounter Procedures Procedure Name Priority Date/Time Associated Diagnosis Comments ESTIMATED GLOMERULAR FILTRATION RATE (EGFR) Routine 09/02/2024 3:05 PM CDT Elevated serum creatinine CREATININE, SERUM Routine 09/02/2024 3:0 5 PM CDT Elevated serum creatinine documented in this encounter Results * (ABNORMAL) Estimated Glomerular Filtration Rate (eGFR) (09/02/2024 3:05 PM CDT) Estimated Glomerular Filtration Rate (eGFR) 47(A) 09/02/2024 3:23 PM CDT [facility] Comment: GFR calculated from serum creatinine value Chronic Kidney Disease less than 60 mL/min/1.73 m2 Kidney Failure less than 15 mL/min/1.73 m2 Note: effective 02/01/2022: 2020 CKD-EPI Equation used 09/02/2024 3:05 PM CDT 09/02/2024 3:05 PM CDT us Kirit Torres MD LAB BLOOD ORDERABLES Final R esult [facility] [address] [place] [address] * (ABNORMAL) Creatinine, Serum (09/02/2024 3:05 PM CDT) Creatinine 1.6(H) 0.6 - 1.4 mg/dL 09/02/2024 3:23 PM CDT [facility] Blood (Blood, Venous) 09/02/2024 3:05 PM CDT 09/02/2024 3:05 PM CDT us Kirit Torres MD LAB BLOOD ORDERABLES Final R esult Performing Organization Address City/[facility] Co de Phone Number [facility] [address] [place] [address] documented in this encounter Visit Diagnoses Diagnosis Elevated serum creatinine Other nonspecific findings on examination of blood documented in this encounter Care Teams Ecology Teacher Relationship Specialty Start Date End Date Kirit Torres MD [address] [place] [address] PCP - General 11/23/22 documented as of this encounter
--- OUTSIDE RECORDS SUMMARY | 2024-09-09 08:40 | XMS_ITS | Encounter Summary ---
Author Organization [facility] er Address [address] [place] [address] Care Team Providers Care Tobacco Sampler Name Role Phone Kirit Torres MD Primary Care Provider [phone] Reason for Visit * Reason Comments Follow-up Encounter Details Date Type Department Care Team (Late st Contact Info) Description 09/09/2024 8:40 AM CDT Office Visit [place] [address] [place] [address] Kirit Torres MD [facility] [address] [place] [address] Primary hypertension (Primary Dx); Paroxysmal atrial fibrillation (HCC); History of smoking; Descending aortic aneurysm Social History Tobacco Use Types Packs/Day Years [...] from your doctor or pharmacy? Never 06/10/2024 [facility] Utilities Answer Date Recorded In the past 12 months has e [employer], gas, oil, or water [employer] threatened to shut off services in your [...] How often do you attend chur or rastafari services? 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 male here for the following: Chief Complaint Patient presents with Follow-up History of Present Illness The patient presents for evaluation of blood pressure management. He has been on amlodipine 5 mg for 7 to 9 days and is tolerating it well. He is also taking hydrochlorothiazide 25 mg and metoprolol 25 mg, the latter for slightly over a week having weaned down and transitioned from Diltiazem (concern for over AV blockade causing exercise intolerance) and the former having been on this dose now for a couple months. He reports improved exercise capacity, evidenced by walking for 1 hour and 15 minutes during a recent silent retreat without chest pain. However, climbing stairs causes shortness of breath, necessitating rest. Despite this, he feels his strength has returned and overall feels strong. He discontinued valsartan about 1 weeks ago as we noticed eleva saundra creatinine level. He feels less sleepy during the day. He wakes up every 2 hours at night to urinate but does not find this disruptive as this is his usual baseline. He takes a shorter morning nap and does not feel the need to lie down in the afternoon for a nap which is a positive change for him. Objective Vitals: 09/09/24 0818 09/09/24 0824 BP: (!) 132/94 (!) 130/93 BP Location: Right arm Right arm Patient Position: Sitting Sitting BP Cuff Size: Large adult Large adult Pulse: 68 73 Resp: 20 Temp: 36.3 ??C (97.4 ??F) TempSrc: Temporal SpO2: 94% Weight: 123 kg (271 lb 8 oz) Physical Exam General Appearance: Normal. Cardiovascular: Regular rate and rhythm, no murmurs. Results Assessment & Plan Blood pressure management and paroxysmal Atrial fibrillation: Blood pressure remains slightly elevated but has shown improvement. Current regimen: amlodipine 5 mg, hydrochlorothiazide 25 mg, metoprolol 25 mg. Metoprolol switch to diltiazem months ago due to concerns for obstructive pulmonary disease, but this did not improve exercise capacity or breathing symptoms. Switched back to metoprolol andnow at a lower overall dose (down to 25 mg from 100 mg previously). Decrease in kidney function noted with valsartan use as we had been increasing this steadily due to uncontrolled high BP. Rapid improvement in GFR since stopping that. - Renal artery ultrasound ordered - History of smoking, also screen for AAA - Increase dose of Amlodipine to 10 mg - Continue hydrochlorothiazide 25 mg daily and metoprolol 25 mg daily - Follow up after ultrasound to recheck BP Sleep issues: Reports improved sleep quality and reduced need for long sleep durations. Wakes up every two hours to urinate but finds it less difficult. Improvement in sleep may be related to recent reduction in metoprolol dosage. He has history of LEONCIO uses mandibular device. Plan: - Continue current blood pressure regimen. - Assess kidney function with blood test before adjusting amlodipine or hydrochlorothiazide dosage. - Consider referral to [facility] for pacemaker evaluation or to [facility] for repeat stress test as he did not achieve goal HR during stress test in May 2024 - Monitor sleep quality and urinary frequency. Diagnosis Plan 1. Primary hypertension 2. 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.9 Paroxysmal atrial fibrillation (HCC) Osteoarthritis of spine with radiculopathy, lumbosacral region Foraminal stenosis of lumbosacral region Bilateral sensorineural hearing loss Cyst of pharynx Obesity, morbid (HCC) documented in this encounter Plan of Treatment Upcoming Encounters Date Type Department Care Team (Late st Contact Info) Description 10/28/2024 8:20 AM CDT Clinical Support [address] [address] 12/08/2024 8:00 AM CORE BLOWER Office Visit [address] [address] 12/11/2024 8:00 AM CORE BLOWER Office Visit [address] [address] 12/15/2024 8:20 AM CORE BLOWER Office Visit [address] [address] Kirit Torres MD [address] [facility] [address] [place] [address] documented as of this encounter Procedures Procedure Name Priority Date/Time Associated Diagnosis Comments US ABDOMEN DUPLEX COMPLETE Routine 09/18/2024 8:37 AM CDT Primary hypertension History of smoking Descending aortic aneurysm documented in this encounter Results * Ultrasound Retroperitoneum Kidney Vessels (09/18/2024 8:37 AM CDT) Anatomical Region Laterality Modality Abdominal aorta and its branches, Abdominal aort a, Vascular Ultrasound Impressions 09/18/2024 8:49 AM CDT Bilaterally the exam is negative for renal artery stenosis. Narrative 09/18/2024 8:49 AM CDT INDICATION: rule out renal artery stenosis and screen for AAA (hx of descending aneurysm, and history of smoking in lifetime) COMPARISON: Chest CTA 11/14/2018 FINDINGS: Very limited exam secondary to patient's body habitus. BILATERAL RENAL ARTERY DUPLEX ULTRASOUND ABDOMINAL AORTA: Peak systolic velocity = 52 cm/s. No aortic aneurysm. RIGHT KIDNEY: 11.8 cm in length. There is no hydronephrosis. Peak systolic velocity = 68 cm/second Renal artery to aortic peak systolic velocity ratio = 1.3 Resistive indices: 0.53-0.59 Renal vein = patent LEFT KIDNEY: 11.9 cm in length. There is no hydronephrosis. Peak systolic velocity = 79 cm/second Renal artery to aortic peak systolic velocity ratio = 1.5 Resistive indices: 0.54-0.57 Renal vein = patent Procedure Note Harsh Barajas MD - 09/18/2024 INDICATION: rule out renal artery stenosis and screen for AAA (hx of descendinganeurysm, and history of smoking in lifetime) COMPARISON: Chest CTA 11/14/2018 FINDINGS: Very limited exam secondary to patient's body habitus. BILATERAL RENAL ARTERY DUPLEX ULTRASOUND ABDOMINAL AORTA: Peak systolic velocity = 52 cm/s. No aortic aneurysm. RIGHT KIDNEY: 11.8 cm in length. There is no hydronephrosis. Peak systolic velocity = 68 cm/second Renal artery to aortic peak systolic velocity ratio = 1.3 Resistive indices: 0.53-0.59 Renal vein = patent LEFT KIDNEY: 11.9 cm in length. There is no hydronephrosis. Peak systolic velocity = 79 cm/second Renal artery to aortic peak systolic velocity ratio = 1.5 Resistive indices: 0.54-0.57 Renal vein = patent IMPRESSION: Bilaterally the exam is negative for renal artery stenosis. 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
--- OUTSIDE RECORDS SUMMARY | 2024-09-09 09:15 | XMS_ITS | Encounter Summary ---
Author Organization [facility] er Address [address] [place] [address] Care Team Providers Care Abrading Machine Tender Name Role Phone Kirit Torres MD Primary Care Provider [phone] Encounter Details Date Type Department Care Team (Late st Contact Info) Description 09/09/2024 9:15 AM CDT Lab [facility] [address] [place] [address] Essential hypertension (Primary Dx); Obesity, Class II, BMI 35-39.9 Social History Tobacco Use Types Packs/Day Years [...] doctor or pharmacy? Never 06/10/2024 [facility] Utilities Answer Date Recorded In the past 12 months has e [employer], gas, oil, or water [employer] threatened to shut off services in your [...] week 06/10/2024 How often do you attend [facility] services? More than 4 times per year 06/10/2024 Do you belong to any clubs o r organizations such as lutheran groups, unions, fraternal or athletic groups, or [...] Recorded PHQ-9 Total Score 1 06/10/2024 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 02/06/1976 02/05/18 83 documented as of this encounter Plan of Treatment Upcoming Encounters Date Type Department Care Team (Late st Contact Info) Description 10/28/2024 8:20 AM CDT Clinical Support [facility] [address] [place] [address] 12/08/2024 8:00 AM GAS MASK ASSEMBLER Office Visit [facility] [address] [place] [address] 20 [place] [address] 12/11/2024 8:00 AM GAS MASK ASSEMBLER Office Visit [facility] [address] [place] [address] 20 [place] [address] 12/15/2024 8:20 AM GAS MASK ASSEMBLER Office Visit [facility] [address] [place] [address] Kirit Torres MD 1705 [facility] 20 [place] [address] documented as of this encounter Procedures Procedure Name Priority Date/Time Associated Diagnosis Comments ESTIMATED GLOMERULAR FILTRATION RATE (EGFR) Routine 09/09/2024 9:15 AM CDT Essential hypertension Obesity, Class II, BMI 35-39.9 BASIC METABOLIC PANEL Routine 09/09/2024 9:15 AM CDT Essential hypertension Obesity, Class II, BMI 35-39.9 documented in this encounter Results * Estimated Glomerular Filtration Rate (eGFR) (09/09/2024 9:15 AM CDT) Estimated Glomerular Filtration Rate (eGFR) >60 09/09/2024 9:40 AM CDT [facility] Comment: GFR calculated from serum creatinine value Chronic Kidney Disease less than 60 mL/min/1.73 m2 Kidney Failure less than 15 mL/min/1.73 m2 Note: effective 02/01/2022: 2020 CKD-EPI Equation used 09/09/2024 9:15 AM CDT 09/09/2024 9:15 AM CDT Kirit Torres MD LAB BLOOD ORDERABLES Final R esult Performing Organization Address [facility] Co de Phone Number [facility] [address] [place] [address] * (ABNORMAL) Basic metabolic panel (09/09/2024 9:15 AM CDT) Sodium 140 135 - 145 mmol/L 09/09/2024 9:40 AM CDT [facility] [place] [facility] Potassium 3.5 3.5 - 5.1 mmol/L 09/09/2024 9:40 AM CDT [facility] [place] Chloride 104 98 - 107 mmol/L 09/09/2024 9:40 AM CDT [facility] [place] CO2 31 22 - 31 mmol/L 09/09/2024 9:40 AM CDT [facility] [place] Creatinine 1.1 0.6 - 1.4 mg/dL 09/09/2024 9:40 AM CDT [facility] BUN 14 5 - 25 mg/dL 09/09/2024 9:40 AM CDT [facility] [place] Glucose 116(H) 70 - 100 mg/dL 09/09/2024 9:40 AM CDT [facility] [place] Calcium, Total,S 9.4 8.4 - 10.2 mg/dL 09/09/2024 9:40 AM CDT [facility] [place] Anion Gap 5 4 - 13 09/09/2024 9:40 AM CDT [facility] [place] Comment: The anion gap is calculated with the following formula: AGAP = Na ? (Cl + CO2). Fasting? Yes 09/09/2024 9:29 AM CDT [facility] [place] Blood (Blood, Venous) 09/09/2024 9:15 AM CDT 09/09/2024 9:15 AM CDT Kirit Torres MD LAB BLOOD ORDERABLES Final R esult [facility] JOSE JUAN BERNARD [address] [place] [address] documented in this encounter Visit Diagnoses Diagnosis Essential hypertension- Primary Unspecified essential hypertension Obesity, Class II, BMI 35-39.9 documented in this encounter Care Teams Abrading Machine Tender Relationship Specialty Start Date End Date Kirit Torres MD [address] [place] [address] PCP - General 11/23/22 documented as of this encounter
--- OUTSIDE RECORDS SUMMARY | 2024-09-18 06:34 | XMS_ITS | Encounter Summary ---
Author Organization [facility] er Address [address] [place] [address] Care Team Providers Care Tank Tender Name Role Phone Kirit Torres MD Primary Care Provider [phone] Encounter Details Date Type Department Care Team (Latest Contact Info) Description 09/18/2024 6:34 AM CDT Hospital Encounter [facility] Hospital Ultrasound [address] [place], [place] [id number] Discharge Disposition: Home or Self Care Social History Tobacco Use Types Packs/Day Years [...] doctor or pharmacy? Never 06/10/2024 [facility] Utilities Answer Date Recorded In the past 12 months has [facility] [employer], gas, oil, or water [employer] threatened to shut off services in your [...] How often do you attend chur or jainism services? More than 4 times per year 06/10/2024 Do you belong to any clubs o r organizations such as cheondoism groups, unions, fraternal or athletic groups, or [...] Date Recorded PHQ-9 Total Score 1 06/10/2024 [facility] - Occupational Stress Questionnaire Answer Date [...] place to sleep or slept in a usp (including now)? No 12/08/2022 Housing Stability Vital Sign Answer Anup e Recorded In the last 12 months, was t here a time when you were not able to pay the mortgage or rent on time? No 06/10/2024 In the past 12 months, how m any times have you moved where you were living? 0 06/10/2024 At any time in the past 12 m [facility], were you homeless or living in a usp (including now)? 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 02/06/1976 02/05/18 83 documented as of this encounter Medications at Time of Discharge acetic acid-hydrocortison e (VOSOL-HC) otic solutionIndication s:Itching of ear Administer 4 drops into affected ear(s) 4 (four) times a day if needed (itching) 10 mL 5 12/11/2023 albuterol HFA (Ventolin HFA) 108 (90 Base) MCG/ACT inhalerIndications :Wheezing Inhale 2 puffs every 4 (four) hours if needed for wheezing or shortness of breath 18 g 2 07/31/2024 amLODIPine (NORVASC) 10 MG tabletIndications: Primary hypertension TAKE 1 TABLET(10 MG) BY MOUTH 1 TIME EACH DAY 90 tablet 3 09/15/2024 DULoxetine (CYMBALTA) [address] capsuleIndications :Lumbar radicular syndrome TAKE 1 CAPSULE(60 MG) BY MOUTH 1 TIME EACH DAY. DO NOT CRUSH OR CHEW 90 capsule 1 05/05/2024 famotidine (PEPCID/ZANTAC 360) 20 MG tabletIndications: Gastroesophageal reflux disease, unspecified whether esophagitis present TAKE 1 TABLET(20 MG) BY MOUTH TWICE DAILY 180 tablet 3 04/01/2024 finasteride (Propecia) 1 MG tabletIndications: Hair loss Take one tab a day for hair loss. Do not crush, chew, or split. 90 tablet 3 12/11/2023 Fluticasone-Salmet tommy (ADVAIR DISKUS) 100-50 MCG/ACT diskus inhalerIndications :Chronic obstructive pulmonary disease, unspecified COPD type (HCC) Inhale 1 puff 2 (two) times a day Rinse mouth with water after use to reduce aftertaste and incidence of candidiasis. Do not swallow. 60 each 2 07/31/2024 metoprolol succinate XL (Toprol XL) 25 MG 24 hr tabletIndications: Paroxysmal atrial fibrillation (HCC) Take 2 tablets (50 mg total) by mouth 1 (one) time each day for 5 days, THEN 1 tablet (25 mg total) 1 (one) time each day. Do not crush or chew. 100 tablet 08/26/2024 rivaroxaban (Xarelto) 20 MG tabletIndications: Paroxysmal atrial fibrillation (HCC) Take 1 tablet (20 mg total) by mouth 1 (one) time each day 90 tablet 3 08/26/2024 hydroCHLOROthiazid e (HYDRODIURIL) 25 MG tabletIndications: Primary hypertension Take 1 tablet (25 mg total) by mouth 1 (one) time each day 90 tablet 3 07/31/2024 documented as of this encounter Plan of Treatment Upcoming Encounters Date Type Department Care Team (Late st Contact Info) Description 10/28/2024 8:20 AM CDT Clinical Support [address] [address] 12/08/2024 8:00 AM RIPPLER Office Visit [address] [address] 12/11/2024 8:00 AM RIPPLER Office Visit [address] [address] 12/15/2024 8:20 AM RIPPLER Office Visit [address] [address] Kirit Torres MD [address] [address] documented as of this encounter Procedures Procedure [...] exam is negative for renal artery stenosis. Kirit Torres MD IMG US PROCEDURES Final Resu lt documented in this encounter Visit Diagnoses Not on filedocumented in this encounter Care Teams Tank Tender Relationship Specialty Start Date End Date Kirit Torres MD 1705 [facility] 20 [place] [address] PCP - General 11/23/22 documented as of this encounter
--- OUTSIDE RECORDS SUMMARY | 2024-09-18 06:35 | XMS_ITS | Encounter Summary ---
Author Organization [facility] er Address [address] [place] [address] Care Team Providers Care Extrusion Former Name Role Phone Kirit Torres MD Primary Care Provider [phone] Encounter Details Date Type Department Care Team (Latest Contact Info) Description 09/18/2024 6:35 AM CDT - 09/18/2024 11:59 PM CDT Hospital Encounter [facility] Hospital Ultrasound [address] [place] [phone] Discharge Disposition: Home or Self Care Social History Tobacco Use Types Packs/Day Years Used Date Smoking Tobacco: Former Cigarettes 0.4 2 1 975 - 2413 Smokeless Tobacco: Never Alcohol Use Standard Drinks/Week Comments No 0 (1 standard drink = 0.6 oz pur e alcohol) sober since 1999 B1300 Health Literacy Answer Date Recor ded How often do you need to hav e someone help you when you read instructions, pamphlets, or other written material from your doctor or pharmacy? Never 06/10/2024 [facility] Utilities Answer Date Recorded In the past 12 months has [facility], gas, oil, or water [employer] threatened to shut off services in your [...] How often do you attend chur or druze services? 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 60 each 2 07/31/2024 6 metoprolol succinate XL (Toprol XL) 25 MG 24 hr tabletIndications: Paroxysmal atrial fibrillation (HCC) Take 2 tablets (50 mg total) by mouth 1 (one) time each day for 5 days, THEN 1 tablet (25 mg total) 1 (one) time each day. Do not crush or chew. 100 tablet 08/26/2024 5 rivaroxaban (Xarelto) 20 MG tabletIndications: Paroxysmal atrial fibrillation (HCC) Take 1 tablet (20 mg total) by mouth 1 (one) time each day 90 tablet 3 08/26/2024 hydroCHLOROthiazid e (HYDRODIURIL) 25 MG tabletIndications: Primary hypertension Take 1 tablet (25 mg total) by mouth 1 (one) time each day 90 tablet 3 07/31/2024 5 documented as of this encounter Plan of Treatment Upcoming Encounters Date Type Department Care Team (Late st Contact Info) Description 10/28/2024 8:20 AM CDT Clinical Support [address] [address] 12/08/2024 8:00 AM SIGNALS ANALYST Office Visit [address] [address] 12/11/2024 8:00 AM SIGNALS ANALYST Office Visit [address] [address] 12/15/2024 8:20 AM SIGNALS ANALYST Office Visit [address] [address] Kirit Torres MD [address] [address] documented as of this encounter Procedures Procedure Name Priority Date/Time Associated Diagnosis Comments US ABDOMEN AAA SCREENING ONLY, ONE-TIME ORDER, NOT FOR ED USE Routine 09/18/2024 8:40 AM CDT History of tobacco use documented in this encounter Results * Ultrasound abdomen AAA SCREENING TEST ONLY - One Time Order, NOT FOR ED USE (09/18/2024 8:40 AM CDT) Anatomical Region Laterality Modality Body, Abdominal aorta Ultrasound Impressions 09/18/2024 8:59 AM CDT No abdominal aortic aneurysm. Narrative 09/18/2024 8:59 AM CDT INDICATION: AAA screening COMPARISON: None available FINDINGS: US ABDOMEN AAA SCREENING ONLY, ONE-TIME ORDER, NOT FOR ED USE Very challenging exam secondary to patient's body habitus. The abdominal aorta measures 2.8 cm in maximal diameter at the proximal portion, 2.2 cm in maximal diameter at the mid portion and 2.2 cm in maximal diameter at the distal portion. No aortic aneurysm. The right common iliac artery measures 1.3 cm in maximal diameter. The left common iliac artery measures 1.4 cm in maximal diameter. Procedure Note Harsh Barajas MD - 09/18/2024 INDICATION: AAA screening COMPARISON: None available FINDINGS: US ABDOMEN AAA SCREENING ONLY, ONE-TIME ORDER, NOT FOR ED USE Very challenging exam secondary to patient's body habitus. The abdominal aorta measures 2.8 cm in maximal diameter at the proximalportion, 2.2 cm in maximal diameter at the mid portion and 2.2 cm inmaximal diameter at the distal portion. No aortic aneurysm. The right common iliac artery measures 1.3 cm in maximal diameter. The left common iliac artery measures 1.4 cm in maximal diameter. IMPRESSION: No abdominal aortic aneurysm. Kirit Torres MD IMG US PROCEDURES Final Resu lt documented in this encounter Visit Diagnoses Not on filedocumented in this encounter Care Teams Extrusion Former Relationship Specialty Start Date End Date Kirit Torres MD [address] [place] [address] PCP - General 11/23/22 documented as of this encounter
--- OUTSIDE RECORDS SUMMARY | 2024-09-25 09:20 | XMS_ITS | Encounter Summary ---
Author Organization [facility] er Address [address] [place] [address] Care Team Providers Care Industrial Hygiene Manager Name Role Phone Kirit Torres MD Primary Care Provider [phone] Reason for Visit * Reason Comments Follow-up Encounter Details Date Type Department Care Team (Late st Contact Info) Description 09/25/2024 9:20 AM CDT Office Visit [place] [address] [place] [address] Kirit Torres MD [facility] 20 [place] [address] Constipation, unspecified constipation type (Primary Dx); Primary hypertension; Gastroesophageal reflux disease, unspecified whether esophagitis present Social History Tobacco Use Types Packs/Day Years Used Date Smoking Tobacco: Former Cigarettes 0.4 2 1 005 - 1976 Smokeless Tobacco: Never Alcohol Use Standard Drinks/Week Comments No 0 (1 standard drink = 0.6 oz pur e alcohol) sober since 1999 B1300 Health Literacy Answer Date Recor ded How often do you need to hav e someone help you when you read instructions, pamphlets, or other written material from your doctor or pharmacy? Never 06/10/2024 [facility] Utilities Answer Date Recorded In the past 12 months has e [employer], gas, oil, or water company threatened to [...] Date Recorded PHQ-9 Total Score 1 06/10/2024 [facility] Occupat [facility] Health - Occupational Stress [...] any time in the past 12 m [facility], were you homeless or living in a senior living (including now)? 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 02/06/1976 02/05/18 83 documented as of this encounter Last Filed Vital Signs Vital Sign Reading Time Taken Comments Blood Pressure 134/96 09/25/2024 9:29 AM CDT Pulse 71 09/25/2024 9:29 AM CDT Temperature 36.6 C (97.9 F) 09/25/2024 9:24 AM CDT Respiratory Rate 20 09/25/2024 9:24 AM CDT Oxygen Saturation 94% 09/25/2024 9:24 AM CDT Inhaled Oxygen Concentration - - Weight 123 kg (271 lb 3.2 oz) 09/25/2024 9:24 AM CDT Height 180.3 cm (5' 11) 09/25/2024 9:24 AM CDT Body Mass Index 37.82 09/25/2024 9:24 AM CDT documented in this encounter Patient Instructions * Patient Instructions* Kirit Torres MD - 09/25/2024 9:20 AM CDT Increase hydrochlorothiazide to 50 mg once daily. Start Miralax 1 capful (17 grams) once daily for constipation. May take 2-3 days for notice change in stools. documented in this encounter Progress Notes * Kirit Torres MD - 09/25/2024 9:20 AM CDT Erasto Ramos is a 64 y.o. male here for the following: Chief Complaint Patient presents with Follow-up History of Present Illness The patient presents for evaluation of fecal odor, constipation, hypertension, and heartburn. He reports a persistent fecal odor for 3-4 weeks, noticeable in various environments, particularly when using a fan at night. There have been no comments from others about the smell, and he has not experienced any rashes or itching in the groin area. He maintains good hygiene. He mentions a long-sta nding issue of a few drops of urine in his underwear after urination. He suspects the odor may be related to his kidneys due to abnormal kidney function tests. He notes that the onset of the odor coincided with the discontinuation of valsartan a month ago. His bowel movements typically occur once daily in the morning after consuming caffeine. Recently, he has experienced constipation, which he believes is likely due to medications. The initial stool ishard and requires straining. He follows a high-fiber diet and uses a laxative once a week, which effectively empties his bowels. He occasionally experiences heartburn and has not taken Pepcid AC for 3-4 weeks due to a lapse in prescription renewal. He plans to cotton picker operator the medication today. In the meantime, he has been taking Tums, 1-3 tablets daily, which have been effective. His blood pressure remains high. He is currently on amlodipine 10 mg and hydrochlorothiazide 25 mg. Objective Vitals: 09/25/24 0924 09/25/24 0929 BP: (!) 150/100 (!) 134/96 BP Location: Left arm Right arm Patient Position: Sitting Sitting BP Cuff Size: Adult long Adult long Pulse: 70 71 Resp: 20 Temp: 36.6 ??C (97.9 ??F) TempSrc: Temporal SpO2: 94% Weight: 123 kg (271 lb 3.2 oz) Height: 1.803 m (5' 11) Physical Exam General Appearance: Normal. Head: Sinuses non-tender. Throat: Oropharynx clear. Neck: Normal. Gastrointestinal: Abdomen non-tender. Genitourinary: No rashes in groin area. Results - Laboratory Studies: - Creatinine: 1.1 mg/dL - Imaging: - Renal ultrasound: Normal Assessment & Plan Fecal odor: Persistent for about a month, intermittent. Stool test for H. pylori planned. Avoid Pepcid AC, Prilosec, and Pepto-Bismol for two weeks prior. Continue Tums. Recommend MiraLAX 17 g once daily for constipation. Constipation: Likely due to medication changes, hard stools requiring effort to pass. Start [id number] g once daily, can adjust frequency to monitor tolerance. Hypertension: BP 134/96 mmHg. Increase hydrochlorothiazide from 25 mg to 50 mg daily. Check kidney function and potassium levels next visit. Heartburn: Occasional, not taking Pepcid AC for 3-4 weeks. Avoid starting Pepcid AC until after H. pylori stool test. Diagnosis Plan 1. Constipation, unspecified constipation type polyethylene glycol (MiraLax) 17 GM/SCOOP powder 2. Primary hypertension Basic metabolic panel hydroCHLOROthiazide (HYDRODIURIL) 25 MG tablet 3. Gastroesophageal reflux disease, unspecified whether esophagitis present H. pylori antigen, stool Patient Active Problem List Diagnosis Primary hypertension Laryngopharyngeal reflux (LPR) Descending aortic aneurysm Ventral hernia without obstruction or gangrene Chronic hip pain, right Tinnitus of both ears Sinus of Valsalva aneurysm History of cardioversion Current use of intermediate 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 Benign prostatic hyperplasia with urinary frequency Chronic back pain LEONCIO (obstructive sleep apnea) Obesity, Class II, BMI 35-39.9 Paroxysmal atrial fibrillation (HCC) Osteoarthritis of spine with radiculopathy, lumbosacral region Foraminal stenosis of lumbosacral region Bilateral sensorineural hearing loss Cyst of pharynx documented in this encounter Plan of Treatment Upcoming Encounters Date Type Department Care Team (Late st Contact Info) Description 10/28/2024 8:20 AM CDT Clinical Support [address] [address] 12/08/2024 8:00 AM MAIL ROOM Office Visit [address] [address] 12/11/2024 8:00 AM MAIL ROOM Office Visit [address] [address] 12/15/2024 8:20 AM MAIL ROOM Office Visit [address] [address] Kirit Torres MD [address] [place] [phone] documented as of this encounter Results * (ABNORMAL) Basic metabolic panel (10/09/2024 3:07 PM CDT) Sodium 138 135 - 145 mEq/L 10/10/2024 1:34 PM T [facility] Potassium 2.7(LL) 3.5 - 5.1 mEq/L 10/10/2024 1:34 PM T [facility] Chloride 96(L) 98 - 107 mEq/L 10/10/2024 1:34 PM T [facility] CO2 34(H) 22 - 31 mmol/L 10/10/2024 1:34 PM T [facility] Creatinine 1.70(H) 0.60 - 1.40 mg/dL 10/10/2024 1:34 PM T [facility] BUN 18 5 - 25 mg/dL 10/10/2024 1:34 PM T [facility] Glucose 99 70 - 100 mg/dL 10/10/2024 1:34 PM T [facility] Calcium, Total,S 10.8(H) 8.4 - 10.2 mg/dL 10/10/2024 1:34 PM T [facility] Anion Gap 8 4 - 13 10/10/2024 1:34 PM [facility] Comment: The anion gap is calculated with the following formula: AGAP = Na ? (Cl + CO2). Fasting? No 10/09/2024 3:21 PM T [facility] Blood (Blood, Venous) 10/09/2024 3:07 PM CDT 10/10/2024 12:25 PM CDT Narrative [facility] - 10/10/2024 1:34 PM CDT Called to Cholo Andres 2.7, RBPascale. , , 13:34 10/10/2024 TPH us Kirit Torres MD LAB BLOOD ORDERABLES Final R esult [facility] [address] [place] [phone] * H. pylori antigen, stool (10/01/2024 7:30 AM CDT) H pylori Ag, Stl NEGATIVE Negative 10/03/2024 7:43 PM CDT [facility] Comment: H. pylori antigen is absent or below the level of detection. Stool (Per Rectum) 10/01/2024 7:30 AM CDT 10/01/2024 12:31 PM CDT us Kirit Torres MD LAB BODY FLUIDS AND STOOLS O RDERABLES Final Result [facility] [address] [place] [address] documented in this encounter Visit Diagnoses Diagnosis Constipation, unspecified constipation type- Primary Primary hypertension Unspecified essential hypertension Gastroesophageal reflux disease, unspecified whether esophagitis present Primary hypertension Unspecified essential hypertension documented in this encounter Care Teams Industrial Hygiene Manager Relationship Specialty Start Date End Date Kirit Torres MD [address] [address] PCP - General 11/23/22 documented as of this encounter
--- OUTSIDE RECORDS SUMMARY | 2024-10-01 08:15 | XMS_ITS | Encounter Summary ---
Author Organization [facility] er Address [address] [place] [address] Care Team Providers Care Commodity Management Specialist Name Role Phone Kirit Torres MD Primary Care Provider Encounter Details Date Type Department Care Team (Late st Contact Info) Description 10/01/2024 8:15 AM CDT Lab [place] [address] [place] [address] Gastroesophageal reflux disease, unspecified whether esophagitis present Social History Tobacco Use Types Packs/Day Years Used Date Smoking Tobacco: Former Cigarettes 0.4 2 1 975 1976 Smokeless Tobacco: Never Alcohol Use Standard Drinks/Week Comments No 0 (1 standard drink = 0.6 oz pur e alcohol) sober since 1999 B1300 Health Literacy Answer Date Recor ded How often do you need to hav e someone help you when you read instructions, pamphlets, or other written material from your doctor or pharmacy? Never 06/10/2024 [facility] Utilities Answer Date Recorded In the past 12 months has [facility] [employer], gas, oil, or water [employer] threatened to shut off services in your [...] How often do you attend chur or judaism services? More than 4 times per year 06/10/2024 Do you belong to any clubs o r organizations such as sikhism groups, unions, fraternal or athletic groups, or [...] Recorded PHQ-9 Total Score 1 06/10/2024 [facility] of Occupat ional Health - Occupational [...] place to sleep or slept in a fdc (including now)? No 12/08/2022 Housing Stability Vital Sign Answer Anup e Recorded In the last 12 months, was t here a time when you were not able to pay the mortgage or rent on time? No 06/10/2024 In the past 12 months, how m any times have you moved where you were living? 0 06/10/2024 At any time in the past 12 m [facility], were you homeless or living in a fdc (including now)? No 06/10/2024 Interpersonal Safety Questionnaire Answer Date Recorded How often does anyone, jaydon rich family and friends, physically hurt you? Never 02/18/2024 How often does anyone, jaydon rich family and friends, insult or talk down to you? Never 02/18/2024 How often does anyone, jaydon rich family and friends, threaten you with harm? Never 02/18/2024 How often does anyone, morenitajameson layla family and friends, threaten you with harm? 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 02/06/1976 02/05/18 83 documented as of this encounter Plan of Treatment Upcoming Encounters Date Type Department Care Team (Late st Contact Info) Description 10/28/2024 8:20 AM CDT Clinical Support [address] [address] 12/08/2024 8:00 AM BUILDING OPERATOR Office Visit [address] [address] 12/11/2024 8:00 AM BUILDING OPERATOR Office Visit [address] [address] 12/15/2024 8:20 AM BUILDING OPERATOR Office Visit [address] [address] Kirit Torres MD 1705 [facility] [place] [facility] [address] [place] [address] documented as of this encounter Procedures Procedure Name Priority Date/Time Associated Diagnosis Comments H. PYLORI ANTIGEN, STOOL Routine 10/01/2024 7:30 AM CDT Gastroesophageal reflux disease, unspecified whether esophagitis present documented in this encounter Results * H. pylori antigen, stool (10/01/2024 7:30 AM CDT) H pylori Ag, Stl NEGATIVE Negative 10/03/2024 7:43 PM CDT [facility] Comment: H. pylori antigen is absent or below the level of detection. Stool (Per Rectum) 10/01/2024 7:30 AM CDT 10/01/2024 12:31 PM CDT us Kirit Torres MD LAB BODY FLUIDS AND STOOLS O RDERABLES Final Result [facility] [address] [place] [address] documented in this encounter Visit Diagnoses Diagnosis Gastroesophageal reflux disease, unspecified whether esophagitis present documented in this encounter Care Teams Commodity Management Specialist Relationship Specialty Start Date End Date Kirit Torres MD [address] [place] [address] PCP - General 11/23/22 documented as of this encounter
--- OUTSIDE RECORDS SUMMARY | 2024-10-09 15:00 | XMS_ITS | Encounter Summary ---
Author Organization [facility] er Address [address] [place] [address] Care Team Providers Care Processing Supervisor Name Role Phone Kirit Torres MD Primary Care Provider [phone] Encounter Details Date Type Department Care Team (Late st Contact Info) Description 10/09/2024 3:00 PM CDT Lab [place] [address] [place] [address] Primary hypertension Social History Tobacco Use Types [...] from your doctor or pharmacy? Never 06/10/2024 [facility] Utilities Answer Date Recorded In the past 12 months has e [employer], gas, oil, or water [employer] threatened to shut off services in your [...] often do you attend chur ch or rastafarian services? More than 4 times per year 06/10/2024 Do you belong to any clubs o r organizations such as zoroastrianism groups, unions, fraternal or athletic groups, or [...] Date Recorded PHQ-9 Total Score 1 06/10/2024 [facility] - Occupational Stress Questionnaire Answer [...] place to sleep or slept in a mcfp (including now)? No 12/08/2022 Housing Stability Vital Sign Answer Anup e Recorded In the last 12 months, was t here a time when you were not able to pay the mortgage or rent on time? No 06/10/2024 In the past 12 months, how m any times have you moved where you were living? 0 06/10/2024 At any time in the past 12 m [facility], were you homeless or living in a mcfp (including now)? 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 02/06/1976 02/05/18 83 documented as of this encounter Plan of Treatment Upcoming Encounters Date Type Department Care Team (Late st Contact Info) Description 10/28/2024 8:20 AM CDT Clinical Support [address] [address] 12/08/2024 8:00 AM MEDICAL LABORATORY TECHNICAL OFFICER Office Visit [address] [address] 12/11/2024 8:00 AM MEDICAL LABORATORY TECHNICAL OFFICER Office Visit [address] [address] 12/15/2024 8:20 AM MEDICAL LABORATORY TECHNICAL OFFICER Office Visit [address] [address] Kirit Torres MD [address] [address] documented as of this encounter Procedures Procedure Name Priority Date/Time Associated Diagnosis Comments ESTIMATED GLOMERULAR FILTRATION RATE (EGFR) Routine 10/09/2024 3:07 PM CDT Primary hypertension BASIC METABOLIC PANEL Routine 10/09/2024 3:07 PM CDT Primary hypertension documented in this encounter Results * (ABNORMAL) Estimated Glomerular Filtration Rate (eGFR) (10/09/2024 3:07 PM CDT) Estimated Glomerular Filtration Rate (eGFR) 44(A) 10/10/2024 1:34 PM CDT [facility] Comment: GFR calculated from serum creatinine value Chronic Kidney Disease less than 60 mL/min/1.73 m2 Kidney Failure less than 15 mL/min/1.73 m2 Note: effective 02/01/2022: 2020 CKD-EPI Equation used 10/09/2024 3:07 PM CDT 10/09/2024 3:07 PM CDT us Kirit Torres MD LAB BLOOD ORDERABLES Final R esult [facility] [address] [place] [address] * (ABNORMAL) Basic metabolic panel (10/09/2024 3:07 PM CDT) Sodium 138 135 - 145 mEq/L 10/10/2024 1:34 PM T [facility] Potassium 2.7(LL) 3.5 - 5.1 mEq/L 10/10/2024 1:34 PM T [facility] Chloride 96(L) 98 - 107 mEq/L 10/10/2024 1:34 PM T [facility] CO2 34(H) 22 - 31 mmol/L 10/10/2024 1:[address] [facility] Creatinine 1.70(H) 0.60 - 1.40 mg/dL 10/10/2024 1:[address] [facility] BUN 18 5 - 25 mg/dL 10/10/2024 1:[address] [facility] Glucose 99 70 - 100 mg/dL 10/10/2024 1:[address] [facility] Calcium, Total,S 10.8(H) 8.4 - 10.2 mg/dL 10/10/2024 1:[address] [facility] Anion Gap 8 4 - 13 10/10/2024 1:[address] [facility] Comment: The anion gap is calculated with the following formula: AGAP = Na ? (Cl + CO2). Fasting? No 10/09/2024 3:[address] [facility] Blood (Blood, Venous) 10/09/2024 3:07 PM CDT 10/10/2024 12:25 PM T Narrative [facility] - 10/10/2024 1:34 PM CDT Called to Cholo Andres 2.7, RBA. , , 13:34 10/10/2024 TPH us Kirit Torres MD LAB BLOOD ORDERABLES Final R esult [facility] [address] [place] [address] documented in this encounter Visit Diagnoses Diagnosis Primary hypertension Unspecified essential hypertension documented in this encounter Care Teams Processing Supervisor Relationship Specialty Start Date End Date Kirit Torres MD [address] [address] PCP - General 11/23/22 documented as of this encounter
--- OUTSIDE RECORDS SUMMARY | 2024-10-09 15:20 | XMS_ITS | Encounter Summary ---
Author Organization [facility] er Address [address] [place] [address] Care Team Providers Care Slot Service Specialist Name Role Phone Kirit Brooks MD Primary Care Provider [phone] Reason for Visit * Reason Comments Blood Pressure Check Encounter Details Date Type Department Care Team (Latest Contact Info) Description 10/09/2024 3:20 PM CDT Clinical Support [place] [address] [place] [address] Blood pressure check (Primary Dx); Primary hypertension Social History Tobacco Use Types Packs/Day Years Used Date Smoking Tobacco: Former Cigarettes 0.4 2 1 975 - 7759 Smokeless Tobacco: Never Alcohol Use Standard Drinks/Week Comments No 0 (1 standard drink = 0.6 oz pur e alcohol) sober since 1999 B1300 Health Literacy Answer Date Recor ded How often do you need to hav e someone help you when you read instructions, pamphlets, or other written material from your doctor or pharmacy? 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 02/06/1978 02/05/18 83 documented as of this encounter Last Filed Vital Signs Vital Sign Reading Time Taken Comments Blood Pressure 141/99 10/09/2024 3:33 PM CDT Pulse 92 10/09/2024 3:20 PM CDT Temperature - - Respiratory Rate - - Oxygen Saturation - - Inhaled Oxygen Concentration - - Weight - - Height - - Body Mass Index - - documented in this encounter Progress Notes * Erika Herr BSN - 10/09/2024 3:20 PM CDT Routine BP Check Patient presents today for BP check per request of: PCP BP Readings from Last 4 Encounters: 10/09/24 (!) 141/99 09/25/24 (!) 134/96 09/09/24 (!) 130/93 08/26/24 (!) 144/99 Medication Review: Patients medication list reviewed. Patient is compliant with medications Home BP Readings: Personal BP Device (patient did not bring device to this visit) Vitals: 10/09/24 1520 10/09/24 1533 BP: (!) 139/100 (!) 141/99 Pulse: 92 Blood pressure checked automated using [facility] device only Plan: !! Patient's blood pressure is out-of-goal (>139/89 mmHg). Patient instructed to schedule a nurse appointment for a blood pressure recheck within 30 days. Note routed to PCP. Has been taking increased dose of hydrochlorothiazide since 09/25/24. Will schedule blood pressure check with nursing in 1-2 weeks. Encouraged patient to bring home blood pressure with to visit. The patient verbalized understanding and agreed with the recommended plan. Patient Education: Patient had previous education reinforced and reviewed. Patient provided with additional [facility]-approved materials including: - None Long-Term Medications Medication Sig Dispense Refill albuterol HFA (Ventolin HFA) 108 (90 Base) MCG/ACT inhaler Inhale 2 puffs every 4 (four) hours if needed for wheezing or shortness of breath 18 g 2 amLODIPine (NORVASC) 10 MG tablet TAKE 1 TABLET(10 MG) BY MOUTH 1 TIME EACH DAY 90 tablet 3 DULoxetine (CYMBALTA) [address] capsule [...] 2 hydroCHLOROthiazide (HYDRODIURIL) 25 MG tablet Take 2 tablets (50 mg total) by mouth 1 (one) time each day metoprolol succinate XL (Toprol XL) 25 MG [...] tablet 3 * Kirit Brooks MD - 10/09/2024 3:20 PM CDT Please call patient and let him know I want to add Olmesartan 20 mg once daily. He was on Valsartanin the past but Olmesartan may work better. Once his blood test result is back I will let him know to start the Olmesartan or not through the portal. I did send the medication now so I don't forget, but he can wait to pick it up until I message him on his blood test. Follow up as planned within the next 30 days. (No change to other meds: continue hydrochlorothiazide 50 mg once daily, Amlodipine 10 mg once daily and metoprolol 25 mg once daily as prescribed). documented in this encounter Miscellaneous Notes * Addendum Note - Kirit Brooks MD - 10/09/2024 3:20 PM CDTAddended by: KIRIT BROOKS on: 10/09/2024 03:56 PM Modules accepted: Orders documented in this encounter Plan of Treatment Upcoming Encounters Date Type Department Care Team (Late st Contact Info) Description 10/28/2024 8:20 AM CDT Clinical Support [place] [address] 12/08/2024 8:00 AM PARTS CATALOGER Office Visit [place] [address] 12/11/2024 8:00 AM PARTS CATALOGER Office Visit [place] [address] [place] [address] 12/15/2024 8:20 AM PARTS CATALOGER Office Visit [place] [address] [place] [address] Kirit Brooks MD [address] [place] [address] documented as of this encounter Visit Diagnoses Diagnosis Blood pressure check- Primary Screening for hypertension Primary hypertension Unspecified essential hypertension documented in this encounter Care Teams Slot Service Specialist Relationship Specialty Start Date End Date Kirit Brooks MD [address] [place] [address] PCP - General 11/23/22 documented as of this encounter
--- OUTSIDE RECORDS SUMMARY | 2024-10-10 17:06 | XMS_ITS | Encounter Summary ---
Author Organization [facility] er Address [address] [place] [address] Care Team Providers Care X Ray Examiner Of Aircraft Name Role Phone Kirit Torres MD Primary Care Provider Encounter Details Date Type Department Care Team (Late st Contact Info) Description 09/10/2024 Results Follow-Up [address] [address] Kirit Torres MD 1705 [facility] [address] [place] [address] Basic metabolic panel, Estimated Glomerular Filtration Rate [...] from your doctor or pharmacy? Never 06/10/2024 [facility] Utilities Answer Date Recorded In the past 12 months has e [employer], gas, oil, or water [employer] threatened to shut off services in your [...] Date Recorded PHQ-9 Total Score 1 06/10/2024 [facility] of Occupat ionaz Health - Occupational Stress Questionnaire Answer Date [...] any time in the past 12 m [facility], were you homeless or living in a mcfp (including now)? No 06/10/2024 Interpersonal Safety Questionnaire Answer Date Recorded How often does anyone, jaydon rich family and friends, physically hurt you? Never 02/18/2024 How often does anyone, jaydon rich family and friends, insult or talk down to you? 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 02/06/1978 02/05/18 83 documented as of this encounter Plan of Treatment Upcoming Encounters Date Type Department Care Team (Late st Contact Info) Description 10/28/2024 8:20 AM CDT Clinical Support [place] [address] [place] [address] 12/08/2024 8:00 AM PHOTOGRAPHIC EQUIPMENT MECHANIC Office Visit [place] [address] [place] [address] 12/11/2024 8:00 AM PHOTOGRAPHIC EQUIPMENT MECHANIC Office Visit [place] [address] [place] [address] 12/15/2024 8:20 AM PHOTOGRAPHIC EQUIPMENT MECHANIC Office Visit [place] [address] [address] Kirit Torres MD [address] [place] [address] documented as of this encounter Visit Diagnoses Not on filedocumented in this encounter Care Teams X Ray Examiner Of Aircraft Relationship Specialty Start Date End Date Kirit Torres MD [address] [place] [address] PCP - General 11/23/22 documented as of this encounter
--- OUTSIDE RECORDS SUMMARY | 2024-10-10 17:06 | XMS_ITS | Encounter Summary ---
Author Organization [facility] er Address [address] [place] [address] Care Team Providers Care Airworthiness Inspector Name Role Phone Kirit Torres MD Primary Care Provider [phone] Reason for Visit * Reason Comments Med Refill Encounter Details Date Type Department Care Team (Late st Contact Info) Description 09/10/2024 Refill [place] [address] [place] [address] Kirit Torres MD [address] [address] [place] [address] Primary hypertension Social History Tobacco Use Types Packs/Day Years Used Date Smoking Tobacco: Former Cigarettes 0.4 2 1 965 - 1976 Smokeless Tobacco: Never Alcohol Use Standard Drinks/Week Comments No 0 (1 standard drink = 0.6 oz pur e alcohol) sober since 1999 B1300 Health Literacy Answer Date Recor ded How often do you need to hav e someone help you when you read instructions, pamphlets, or other written material from your doctor or pharmacy? 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 pt is requesting 90 day supply Requested Prescriptions Pending Prescriptions Disp Refills amLODIPine (NORVASC) 10 MG tablet [Pharmacy Med Name: AMLODIPINE BESYLATE 10MGTABLETS] 90 tablet Sig: TAKE 1 TABLET(10 MG) BY MOUTH 1 TIME EACH DAY Labs: Component Latest Ref Rng 09/09/2024 Sodium 135 - 145 mmol/L 140 Potassium 3.5 - 5.1 mmol/L 3.5 Chloride 98 - 107 mmol/L 104 CO2 22 - 31 mmol/L 31 Creatinine 0.6 - 1.4 mg/dL 1.1 BUN 5 - 25 mg/dL 14 Glucose 70 - 100 mg/dL 116 (H) Calcium, Total,S 8.4 - 10.2 mg/dL 9.4 Anion Gap 4 - 13 5 Fasting? Yes Vitals: BP Readings from Last 2 Encounters: 09/09/24 (!) 130/93 08/26/24 (!) 144/99 Last Controlled Substance Agreement (CSA): Last Random Urine Drug Screen (RUDS): documented in this encounter Plan of Treatment Upcoming Encounters Date Type Department Care Team (Late st Contact Info) Description 10/28/2024 8:20 AM CDT Clinical Support [place] [address] [place] [address] 12/08/2024 8:00 AM SLUBBER OPERATOR Office Visit [place] [address] [address] [place] [address] 12/11/2024 8:00 AM SLUBBER OPERATOR Office Visit [place] [address] [address] [place] [address] 12/15/2024 8:20 AM SLUBBER OPERATOR Office Visit [place] [address] [place] [address] [place] [address] Kirit Torres MD [address] [address] documented as of this encounter Visit Diagnoses Diagnosis Primary hypertension Unspecified essential hypertension documented in this encounter Care Teams Airworthiness Inspector Relationship Specialty Start Date End Date Kirit Torres MD [address] [place] [address] PCP - General 11/23/22 documented as of this encounter
--- OUTSIDE RECORDS SUMMARY | 2024-10-10 17:07 | XMS_ITS | Encounter Summary ---
Author Organization [facility] er Address [address] [place] [address] Care Team Providers Care Rail Signal Mechanic Name Role Phone Kirit Torres MD Primary Care Provider [phone] Reason for Visit * Reason Comments Med Refill Encounter Details Date Type Department Care Team (Late st Contact Info) Description 10/09/2024 Refill [place] [address] [place] [address] Kirit Torres MD [address] [address] [place] [address] Primary hypertension Social History Tobacco Use Types Packs/Day Years Used Date Smoking Tobacco: Former Cigarettes 0.4 2 1 375 - 1976 Smokeless Tobacco: Never Alcohol Use Standard Drinks/Week Comments No 0 (1 standard drink = 0.6 oz pur e alcohol) sober since 1999 B1300 Health Literacy Answer Date Recor ded How often do you need to hav e someone help you when you read instructions, pamphlets, or other written material from your doctor or pharmacy? Never 06/10/2024 [facility] Utilities Answer Date Recorded In the past 12 months has e [employer], gas, oil, or water [employer] threatened to shut off services in your [...] any clubs o r organizations such as denominational groups, unions, fraternal or athletic groups, or [...] Recorded PHQ-9 Total Score 1 06/10/2024 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 02/06/1976 02/05/18 83 documented as of this encounter Plan of Treatment Upcoming Encounters Date Type Department Care Team (Late st Contact Info) Description 10/28/2024 8:20 AM CDT Clinical Support [address] [address] 12/08/2024 8:00 AM CONTRACTS SPECIALIST Office Visit [address] [address] 12/11/2024 8:00 AM CONTRACTS SPECIALIST Office Visit [place] [address] [place] [address] 12/15/2024 8:20 AM CONTRACTS SPECIALIST Office Visit [place] [address] [place] [address] Kirit Torres MD [address] [address] documented as of this encounter Visit Diagnoses Diagnosis Primary hypertension Unspecified essential hypertension documented in this encounter Care Teams Rail Signal Mechanic Relationship Specialty Start Date End Date Kirit Torres MD [address] [place] [address] PCP - General 11/23/22 documented as of this encounter
--- OUTSIDE RECORDS SUMMARY | 2024-10-10 17:07 | XMS_ITS | Encounter Summary ---
Author Organization [facility] er Address [address] [place] [address] Care Team Providers Care Photo Mask Pattern Generator Name Role Phone Kirit Torres MD Primary Care Provider Encounter Details Date Type Department Care Team (Late st Contact Info) Description 09/10/2024 Telephone [email or web address] [address] [place] [address] Kirit Torres MD [address] [place] [address] Social History Tobacco Use Types Packs/Day Years [...] from your doctor or pharmacy? Never 06/10/2024 [facility] Utilities Answer Date Recorded In the past 12 months has e [employer] gas, oil, or water [email or web address] threatened to shut off services in your [...] How often do you attend chur or jain services? More than 4 times per year 06/10/2024 Do you belong to any clubs o r organizations such as jain groups, unions, fraternal or athletic groups, or [...] Date Recorded PHQ-9 Total Score 1 06/10/2024 [facility] of Occupat ional Health - Occupational [...] any time in the past 12 m [facility], were you homeless or living in a group home (including now)? No 06/10/2024 Interpersonal Safety Questionnaire Answer Date Recorded How often does anyone, morenitajameson layla family and friends, physically hurt you? 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 Patient is scheduled for renal ultrasound. Comments on this order also state to screen for AAA, which is a different order. This can be done at the same time, as long asthe additional order is placed. Order has been pended. documented in this encounter Plan of Treatment Upcoming Encounters Date Type Department Care Team (Late st Contact Info) Description 10/28/2024 8:20 AM CDT Clinical Support [address] [address] 12/08/2024 8:00 AM CODING SPEC Office Visit [address] [address] 12/11/2024 8:00 AM CODING SPEC Office Visit [address] [address] 12/15/2024 8:20 AM CODING SPEC Office Visit [address] [address] Kirit Torres MD 1705 [facility] 20 [place] [address] documented as of this encounter Procedures Procedure [...] documented in this encounter Visit Diagnoses Diagnosis History of tobacco use- Primary Personal history of tobacco use, presenting hazards to health documented in this encounter Care Teams Photo Mask Pattern Generator Relationship Specialty Start Date End Date Kirit Torres MD [address] [place] [address] PCP - General 11/23/22 documented as of this encounter
--- OUTSIDE RECORDS SUMMARY | 2024-10-10 17:07 | XMS_ITS | Encounter Summary ---
Author Organization [facility] er Address [address] [place] [address] Care Team Providers Care Processing Specialist Name Role Phone Kirit Torres MD Primary Care Provider [phone] Encounter Details Date Type Department Care Team (Late st Contact Info) Description 10/10/2024 Telephone [place] [address] [place] [address] Amol Carmichael MD 1705 [facility] 20 [place] [address] Social History Tobacco Use Types Packs/Day Years Used Date Smoking Tobacco: Former Cigarettes 0.4 2 1 955 - 1976 Smokeless Tobacco: Never Alcohol Use Standard Drinks/Week Comments No 0 (1 standard drink = 0.6 oz pur e alcohol) sober since 1999 B1300 Health Literacy Answer Date Recor ded How often do you need to hav e someone help you when you read instructions, pamphlets, or other written material from your doctor or pharmacy? Never 06/10/2024 [facility] Utilities Answer Date Recorded In the past 12 months has e [employer] gas, oil, or water [employer] threatened to shut off services in your [...] often do you attend chur ch or denominational services? 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 Recommended that patient go to the ED per Dr Carmichael message below. Patient understood and agreed to go to the ED. * Telephone Encounter - Whit Gutierrez LPN - 10/10/2024 3:23 PM CDT Attempted to reach patient to relay message below. LMTCB. * Telephone Encounter - Whit Gutierrez LPN - 10/10/2024 1:34 PM CDT [facility] lab called with critical lab result. Potassium 2.7 documented in this encounter Plan of Treatment Upcoming Encounters Date Type Department Care Team (Late st Contact Info) Description 10/28/2024 8:20 AM CDT Clinical Support [place] [address] [place] [address] 12/08/2024 8:00 AM POLICE COMMUNICATIONS OPERATOR Office Visit [place] [address] [place] [address] 12/11/2024 8:00 AM POLICE COMMUNICATIONS OPERATOR Office Visit [place] [address] [place] [address] 12/15/2024 8:20 AM POLICE COMMUNICATIONS OPERATOR Office Visit [place] [address] [facility] 20 [place] [address] Kirit Torres MD [address] [facility] 20 [place] [address] documented as of this encounter Visit Diagnoses Not on filedocumented in this encounter Care Teams Processing Specialist Relationship Specialty Start Date End Date Kirit Torres MD [address] [facility] 20 [place] [address] PCP - General 11/23/22 documented as of this encounter
--- OUTSIDE RECORDS SUMMARY | 2024-10-10 17:07 | XMS_ITS | Encounter Summary ---
Author Organization [facility] er Address [address] [place] [address] Care Team Providers Care Head Chef Name Role Phone Kirit Torres MD Primary Care Provider [phone] Encounter Details Date Type Department Care Team (Late st Contact Info) Description 09/02/2024 Results Follow-Up [place] [address] [address] Kirit Torres MD [facility] 20 [place] [address] Creatinine, Serum, Estimated Glomerular Filtration Rate (eGFR) Social History Tobacco Use Types Packs/Day Years Used Date Smoking Tobacco: Former Cigarettes 0.4 2 1 5 1976 Smokeless Tobacco: Never Alcohol Use Standard Drinks/Week Comments No 0 (1 standard drink = 0.6 oz pur e alcohol) sober since 1999 B1300 Health Literacy Answer Date Recor ded How often do you need to hav e someone help you when you read instructions, pamphlets, or other written material from your doctor or pharmacy? Never 06/10/2024 [facility] Utilities Answer Date Recorded In the past 12 months has [facility] [employer], gas, oil, or water [employer] threatened to shut off services in your [...] often do you attend chur ch or caodaism services? 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 Patient states that he will stop the valsartan, and pick and shovel man the amlodipine today. documented in this encounter Plan of Treatment Upcoming Encounters Date Type Department Care Team (Late st Contact Info) Description 10/28/2024 8:20 AM CDT Clinical Support [place] [address] 12/08/2024 8:00 AM APPRENTICE COOK Office Visit [place] [address] 12/11/2024 8:00 AM APPRENTICE COOK Office Visit [place] [address] [place] [address] 12/15/2024 8:20 AM APPRENTICE COOK Office Visit [place] [address] [place] [address] Kirit Torres MD [address] [place] [address] documented as of this encounter Visit Diagnoses Diagnosis Primary hypertension- Primary Unspecified essential hypertension documented in this encounter Care Teams Head Chef Relationship Specialty Start Date End Date Kirit Torres MD [address] [place] [address] PCP - General 11/23/22 documented as of this encounter
--- OUTSIDE RECORDS SUMMARY | 2024-10-10 17:07 | XMS_ITS | Encounter Summary ---
Author Organization [facility] er Address [address] [place] [address] Care Team Providers Care Clinical Tech Name Role Phone Kirit Torres MD Primary Care Provider Reason for Visit * Reason Onset Date Comments Hypertension Medication 08/27/2024 Encounter Details Date Type Department Care Team (Late st Contact Info) Description 08/27/2024 Telephone Family Medicine 4th Floor [address] [place], [place] [phone] Kirit Torres MD [address] [place] [address] Hypertension Medication Social History Tobacco Use Types Packs/Day Years Used Date Smoking Tobacco: Former Cigarettes 0.4 2 1 985 - 1976 Smokeless Tobacco: Never Alcohol Use Standard Drinks/Week Comments No 0 (1 standard drink = 0.6 oz pur e alcohol) sober since 1999 B1300 Health Literacy Answer Date Recor ded How often do you need to hav e someone help you when you read instructions, pamphlets, or other written material from your doctor or pharmacy? Never 06/10/2024 [facility] Utilities Answer Date Recorded In the past 12 months has e [employer], gas, oil, or water [employer] threatened to shut off services in your [...] Date Recorded PHQ-9 Total Score 1 06/10/2024 [facility] [place] [facility] of Occupat ional Health - Occupational Stress [...] place to sleep or slept in a mcc (including now)? No 12/08/2022 Housing Stability Vital [...] time in the past 12 m [facility], were you homeless or living in a mcc (including now)? 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 Last read by Erasto Ramos at 4:46PM on 08/27/2024. * Telephone Encounter - Kirit Torres MD - 08/27/2024 3:00 PM CDT Please have him continue the same dose of Valsartan at 160 mg for now and wait until rechecking hiskidney function next week when we can let him know if he should increase that or not. * Telephone Encounter - Marzena Barry RN - 08/27/2024 2:28 PM CDT Patient calls in to report on his Valsartan medication. Patient had an appointment yesterday 08/26 and informed the provider that he was taking valsartan 320 mg. However, he realized that he was only taking 1 tablet and the dose was for valsartan 160 mg. He would like his provider to know about the c onfusion. Motorcycle Subassembler advised patient to take the 320 mg valsartan prescription and to keep track of BP readings at home and send us 6 BP readings to review. Motorcycle Subassembler advised patient to give us a call for any symptoms like blurry vision, nausea, vomiting, light headedness, headaches, or if he does not feel like himself. Patient verbalized understanding. Patient has a follow up appointment with provider on 09/09/2024. documented in this encounter Plan of Treatment Upcoming Encounters Date Type Department Care Team (Late st Contact Info) Description 10/28/2024 8:20 AM CDT Clinical Support [place] [address] [place] [address] [place] [address] 12/08/2024 8:00 AM DELIVERY STOCK CLERK Office Visit [place] [facility] [address] [place] [address] [place] [address] 12/11/2024 8:00 AM DELIVERY STOCK CLERK Office Visit [place] [address] [place] [address] [place] [address] 12/15/2024 8:20 AM DELIVERY STOCK CLERK Office Visit [place] [address] [place] [address] [place] [address] Kirit Torres MD 1705 [facility] 20 [place] [address] documented as of this encounter Visit Diagnoses Not on filedocumented in this encounter Care Teams Clinical Tech Relationship Specialty Start Date End Date Kirit Torres MD 1705 [facility] [address] [place] [address] PCP - General 11/23/22 documented as of this encounter
--- OUTSIDE RECORDS SUMMARY | 2024-10-10 17:07 | XMS_ITS | Encounter Summary ---
Author Organization [facility] er Address [address] [place] [address] Care Team Providers Care Retail Coordinator Name Role Phone Kirit Torres MD Primary Care Provider Reason for Visit * Reason Comments Med Refill Encounter Details Date Type Department Care Team (Late st Contact Info) Description 09/02/2024 Refill [place] [address] [place] [address] Kirit Torres MD [address] 20 [place] [address] Primary hypertension Social History Tobacco Use Types [...] In the past 12 months has e [employer], gas, oil, or water [employer] threatened to shut off services in your [...] How often do you attend chur or mormon services? 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 documented in this encounter Plan of Treatment Upcoming Encounters Date Type Department Care Team (Late st Contact Info) Description 10/28/2024 8:20 AM CDT Clinical Support [place] [address] [place], [place] [address] [place] [address] 12/08/2024 8:00 AM PHARMACY GRADUATE INTERN Office Visit [place] [address] [place] [address] [place] [address] 12/11/2024 8:00 AM PHARMACY GRADUATE INTERN Office Visit [place] [address] [place] [address] [place] [address] 12/15/2024 8:20 AM PHARMACY GRADUATE INTERN Office Visit [place] [address] [place] [address] [place] [address] Kirit Torres MD [address] [place] [address] [place] [address] documented as of this encounter Visit Diagnoses Diagnosis Primary hypertension Unspecified essential hypertension documented in this encounter Care Teams Retail Coordinator Relationship Specialty Start Date End Date Kirit Torres MD [address] [place] [address] PCP - General 11/23/22 documented as of this encounter
--- OUTSIDE RECORDS SUMMARY | 2024-10-10 17:08 | XMS_ITS | Encounter Summary ---
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 Not on file Not on file Not on file documented as of this encounter Plan of Treatment Upcoming Encounters Date Type Department Care Team ([facility] Contact Info) Description 10/28/2024 8:20 AM CDT Clinical Support [place] [facility] [facility] [address] [place] [address] 12/08/2024 8:00 AM OPERATIONS LABEL CLERK Office Visit [place] [address] [facility] [address] [place] [address] 12/11/2024 8:00 AM OPERATIONS LABEL CLERK Office Visit [place] [address] [facility] [address] [place] [address] 12/15/2024 8:20 AM OPERATIONS LABEL CLERK Office Visit [place] [address] [facility] [address] [place] [address] Kirit Torres MD [address] [place] [address] documented as of this encounter Visit Diagnoses Not on filedocumented in this encounter Care Teams Port Drier Relationship Specialty Start Date End Date Kirit Torres MD [address] [place] [address] PCP - General 11/23/22 documented as of this encounter
--- OUTSIDE RECORDS SUMMARY | 2024-10-10 17:08 | XMS_ITS | Encounter Summary ---
Author Organization [facility] er Address [address] [place] [address] Care Team Providers Care Stripper Color Name Role Phone Kirit Torres MD Primary Care Provider [phone] Encounter Details Date Type Department Care Team (Late st Contact Info) Description 10/08/2024 Results Follow-Up [place] [address] [address] Kirit Torres MD [facility] 20 [place] [address] H. pylori antigen, stool Social History Tobacco Use Types Packs/Day Years Used Date Smoking Tobacco: Former Cigarettes 0.4 2 1 155 - 1976 Smokeless Tobacco: Never Alcohol Use Standard Drinks/Week Comments No 0 (1 standard drink = 0.6 oz pur e alcohol) sober since 1999 B1300 Health Literacy Answer Date Recor ded How often do you need to hav e someone help you when you read instructions, pamphlets, or other written material from your doctor or pharmacy? Never 06/10/2024 [facility] Utilities Answer Date Recorded In the past 12 months has e [employer] gas, oil, or water [employer] threatened to shut off services in your [...] How often do you attend chur or pentecostal services? 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 02/06/1976 02/05/18 83 documented as of this encounter Plan of Treatment Upcoming Encounters Date Type Department Care Team (Late st Contact Info) Description 10/28/2024 8:20 AM CDT Clinical Support [address] [address] 12/08/2024 8:00 AM HOTEL NIGHT AUDITOR Office Visit [address] [address] 12/11/2024 8:00 AM HOTEL NIGHT AUDITOR Office Visit [place] [address] [place] [address] 12/15/2024 8:20 AM HOTEL NIGHT AUDITOR Office Visit [place] [address] [place] [address] Kirit Torres MD [address] [place] [address] documented as of this encounter Visit Diagnoses Not on filedocumented in this encounter Care Teams Stripper Color Relationship Specialty Start Date End Date Kirit Torres MD [address] [place] [address] PCP - General 11/23/22 documented as of this encounter
--- OUTSIDE RECORDS SUMMARY | 2024-10-10 17:08 | XMS_ITS | Encounter Summary ---
Author Organization [facility] er Address [address] [place] [address] Care Team Providers Care Grab Hooker Name Role Phone Kirit Torres MD Primary Care Provider [phone] Encounter Details Date Type Department Care Team (Late Contact Info) Description 12/07/2017 Telephone [facility] [address] [place] [phone] [place] [address] [place] [address] Social History Tobacco Use Types Packs/Day [...] Department Care Team (Late Contact Info) Description 10/28/2024 8:20 AM CDT Clinical Support [address] [address] 12/08/2024 8:00 AM FINANCIAL SALES CONSULTANT Office Visit [address] [address] 12/11/2024 8:00 AM FINANCIAL SALES CONSULTANT Office Visit [address] [address] 12/15/2024 8:20 AM FINANCIAL SALES CONSULTANT Office Visit [place] [address] [facility] 20 [place] [address] Kirit Torres MD [address] [place] [address] documented as of this encounter Visit Diagnoses Not on filedocumented in this encounter Additional Health Concerns Infection Onset Date Last Indicated Resolved Time COVID-19 Rule Out 02/03/2020 02/03/2020 02/03/2020 7:04 PM FINANCIAL SALES CONSULTANT documented as of this encounter Care Teams Grab Hooker Relationship Specialty Start Date End Date Kirit Torres MD [address] [place] [address] PCP - General 11/23/22 documented as of this encounter
--- OUTSIDE RECORDS SUMMARY | 2024-10-10 17:08 | XMS_ITS | Encounter Summary ---
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 Not on file Not on file Not on file documented as of this encounter Plan of Treatment Upcoming Encounters Date Type Department Care Team ([facility] Contact Info) Description 10/28/2024 8:20 AM CDT Clinical Support [place] [address] [facility] [address] [place] [address] 12/08/2024 8:00 AM PUBLIC UTILITIES SALES REPRESENTATIVE Office Visit [place] [address] [facility] [address] [place] [address] 12/11/2024 8:00 AM PUBLIC UTILITIES SALES REPRESENTATIVE Office Visit [place] [address] [facility] [address] [place] [address] 12/15/2024 8:20 AM PUBLIC UTILITIES SALES REPRESENTATIVE Office Visit [place] [address] [facility] [address] [place] [address] Kirit Torres MD [address] [place] [address] documented as of this encounter Visit Diagnoses Not on filedocumented in this encounter Care Teams Portable Sawmill Operator Relationship Specialty Start Date End Date Kirit Torres MD [address] [place] [address] PCP - General 11/23/22 documented as of this encounter
--- OUTSIDE RECORDS SUMMARY | 2024-10-10 17:08 | XMS_ITS | Encounter Summary ---
Author Organization [facility] er Address [address] [place] [address] Care Team Providers Care Backfiller Name Role Phone Kirit Torres MD Primary Care Provider [phone] Reason for Visit * Reason Comments Med Refill Encounter Details Date Type Department Care Team (Late st Contact Info) Description 09/28/2024 Refill [place] [address] [place] [address] Kirit Torres MD 170[facility] 20 [place] [address] Primary hypertension Social History Tobacco Use Types Packs/Day Years Used Date Smoking Tobacco: Former Cigarettes 0.4 2 1 785 - 1976 Smokeless Tobacco: Never Alcohol Use [...] In the past 12 months has e [employer], gas, oil, or water [employer] threatened to shut off services in your [...] any clubs o r organizations such as alevism groups, unions, fraternal or athletic groups, or [...] Date Recorded PHQ-9 Total Score 1 06/10/2024 [facility] of Occupat ionnd Health - Occupational Stress Questionnaire Answer Date [...] time in the past 12 m [facility], were you homeless or living in a [...] Not on file 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 on file 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 02/06/1976 02/05/18 83 documented as of this encounter Miscellaneous Notes * Telephone Encounter - Julia Pina MA - 10/02/2024 8:36 AM CDT Discontinued by: Kirit Torres MD on 09/10/2024 documented in this encounter Plan of Treatment Upcoming Encounters Date Type Department Care Team (Late st Contact Info) Description 10/28/2024 8:20 AM CDT Clinical Support [place] [address] [place] [address] 12/08/2024 8:00 AM DOOR ATTENDANT Office Visit [address] [address] 12/11/2024 8:00 AM DOOR ATTENDANT Office Visit [place] [address] [address] 12/15/2024 8:20 AM DOOR ATTENDANT Office Visit [place] [address] [place] [address] Kirit Torres MD [address] [place] [address] documented as of this encounter Visit Diagnoses Diagnosis Primary hypertension Unspecified essential hypertension documented in this encounter Care Teams Backfiller Relationship Specialty Start Date End Date Kirit Torres MD [address] [place] [address] PCP - General 11/23/22 documented as of this encounter
--- OUTSIDE RECORDS SUMMARY | 2024-10-10 17:08 | XMS_ITS | Encounter Summary ---
Author Organization [facility] er Address [address] [place] [address] Care Team Providers Care Application Integration Specialist Name Role Phone Kirit Torres MD Primary Care Provider [phone] Encounter Details Date Type Department Care Team (Latest Contact Info) Description 09/18/2024 Results Follow-Up [place] [address] [place] [address] Kirit Torres MD 1705 [facility] 20 [place] [address] Ultrasound Retroperitoneum Kidney Vessels Social History Tobacco Use Types Packs/Day Years Used Date Smoking Tobacco: Former Cigarettes 0.4 2 1 245 - 1976 Smokeless Tobacco: Never Alcohol Use Standard Drinks/Week Comments No 0 (1 standard drink = 0.6 oz pur e alcohol) sober since 1999 B1300 Health Literacy Answer Date Recor ded How often do you need to hav e someone help you when you read instructions, pamphlets, or other written material from your doctor or pharmacy? Never 06/10/2024 [facility] Utilities Answer Date Recorded In the past 12 months has e [employer] gas, oil, or water [employer] threatened to shut off services in your [...] often do you attend chur ch or rastafari services? More than 4 times per year 06/10/2024 Do you belong to any clubs o r organizations such as episcopal groups, unions, fraternal or athletic groups, or [...] Date Recorded PHQ-9 Total Score 1 06/10/2024 [facility] of Occupat ional Health - Occupational Stress [...] any time in the past [address] 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 02/06/1976 02/05/18 83 documented as of this encounter Plan of Treatment Upcoming Encounters Date Type Department Care Team (Late st Contact Info) Description 10/28/2024 8:20 AM CDT Clinical Support [address] [address] 12/08/2024 8:00 AM GOOD HUMOR VENDOR Office Visit [address] [address] 12/11/2024 8:00 AM GOOD HUMOR VENDOR Office Visit [place] [address] [place] [address] 12/15/2024 8:20 AM GOOD HUMOR VENDOR Office Visit [place] [address] [place] [address] Kirit Torres MD [address] [place] [address] documented as of this encounter Visit Diagnoses Not on filedocumented in this encounter Care Teams Application Integration Specialist Relationship Specialty Start Date End Date Kirit Torres MD [address] [place] [address] PCP - General 11/23/22 documented as of this encounter
--- OUTSIDE RECORDS SUMMARY | 2024-10-10 17:08 | XMS_ITS | Clinical Summary ---
Author Organization [facility] Address [address] [place] [address] Care Team Providers Care Science Technicians Name Role Phone Pcp, No Primary Care [...] Insurance [employer] MED[employer]ARE ADVANTAGE MR Care Teams Science Technicians Relationship Specialty Start Date End Date Pcp, No . PCP - General 05/11/23
--- OUTSIDE RECORDS SUMMARY | 2024-10-10 17:09 | XMS_ITS | Encounter Summary ---
Author Organization [facility] er Address [address] [place] [address] Care Team Providers Care Principal Administrative Clerk Name Role Phone Kirit Torres MD Primary Care Provider Reason for Visit * Reason Comments Med Refill Encounter Details Date Type Department Care Team (Late st Contact Info) Description 01/26/2023 [facility]ill [facility] [address] [place] [address] [place] [address] [place] [phone] Lumbar radicular syndrome Social History Tobacco Use [...] How often do you attend chur or mandaeism services? More than 4 times per year [...] Date Recorded PHQ-9 Total Score 0 12/08/2022 [facility] of Occupat ional Health - [...] place to sleep or slept in a fpc (including now)? 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 documented in this encounter Plan of Treatment Upcoming Encounters Date Type Department Care Team (Late st Contact Info) Description 10/28/2024 8:20 AM CDT Clinical Support [place] [address] [address] 12/08/2024 8:00 AM WARP TRUCKER Office Visit [place] [address] [place] [address] [address] [place] [address] 12/11/2024 8:00 AM WARP TRUCKER Office Visit [place] [address] [facility] [address] [place] [address] 12/15/2024 8:20 AM WARP TRUCKER Office Visit [place] [address] [place] [address] [address] [place] [address] Kirit Torres MD [address] [place] [address] documented as of this encounter Visit Diagnoses Diagnosis Lumbar radicular syndrome Thoracic or lumbosacral neuritis or radiculitis, unspecified documented in this encounter Care Teams Principal Administrative Clerk Relationship Specialty Start Date End Date Kirit Torres MD [address] [place] [address] PCP - General 11/23/22 documented as of this encounter
--- OUTSIDE RECORDS SUMMARY | 2024-10-10 17:09 | XMS_ITS | Encounter Summary ---
Author Organization [facility] er Address [address] [place] [address] Care Team Providers Care Racing Car Driver Name Role Phone Kirit Torres MD Primary Care Provider [phone] Reason for Visit * Reason Onset Date Comments Fatigue 08/25/2024 Encounter Details Date Type Department Care Team (Late st Contact Info) Description 08/25/2024 Telephone [place] [address] [place] [address] Kirit Torres MD [address] [place] [address] Fatigue Social History Tobacco Use Types Packs/Day Years Used Date Smoking Tobacco: Former Cigarettes 0.4 2 1 405 - 1976 Smokeless Tobacco: Never Alcohol Use Standard Drinks/Week Comments No 0 (1 standard drink = 0.6 oz pur e alcohol) sober since 1999 B1300 Health Literacy Answer Date Recor ded How often do you need to hav e someone help you when you read instructions, pamphlets, or other written material from your doctor or pharmacy? 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 * Telephone Encounter - Kirit Torres MD - 08/25/2024 8:26 AM CDT Per last note: If persistent symptoms despite maintaining cardiopulmonary conditioning regimen andweight loss, would recommend follow up with Dr. Robert [facility] Cardiology to review if his chronotropic incompetence [...] 8:20 AM CDT Clinical Support [place] [address] [place] [address] [address] [place] [address] 12/08/2024 8:00 AM SOCIAL SERVICES ASSISTANT Office Visit [place] 17[address] [facility] [address] [place] [address] 12/11/2024 8:00 AM SOCIAL SERVICES ASSISTANT Office Visit [place] [address] [place] [address] [address] [place] [address] 12/15/2024 8:20 AM SOCIAL SERVICES ASSISTANT Office Visit [place] [address] [place] [address] [address] [place] [address] Kirit Torres MD 1705 [facility] [address] [place] [address] documented as of this encounter Visit Diagnoses Not on filedocumented in this encounter Care Teams Racing Car Driver Relationship Specialty Start Date End Date Kirit Torres MD [address] [place] [address] PCP - General 11/23/22 documented as of this encounter
--- OUTSIDE RECORDS SUMMARY | 2024-10-10 17:09 | XMS_ITS | Encounter Summary ---
Author Organization [facility] er Address [address] [place] [address] Care Team Providers Care Director Of Conservation Name Role Phone Kirit Torres MD Primary Care Provider Reason for Visit * Reason Onset Date Comments Afib concerns 08/26/2024 Encounter Details Date Type Department Care Team (Late st Contact Info) Description 08/26/2024 Nurse Triage [place] [address] [address] [address] Kirit Torres MD 1705 [facility] 20 [place] [address] Social History Tobacco Use Types Packs/Day Years Used Date Smoking Tobacco: Former Cigarettes 0.4 2 1 745 - 1976 Smokeless Tobacco: Never Alcohol Use Standard Drinks/Week Comments No 0 (1 standard drink = 0.6 oz pur e alcohol) sober since 1999 B1300 Health Literacy Answer Date Recor ded How often do you need to hav e someone help you when you read instructions, pamphlets, or other written material from your doctor or pharmacy? Never 06/10/2024 [facility] Utilities Answer Date Recorded In the past 12 months has e [employer], gas, oil, or water [employer] threatened to shut off services in your [...] How often do you attend chur or baptist services? 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 * Telephone Encounter - Kirit Torres MD [...] file. Protocols Used Heart Rate and Heartbeat [id number] documented in this encounter Plan of Treatment Upcoming Encounters Date Type Department Care Team (Late st Contact Info) Description 10/28/2024 8:20 AM CDT Clinical Support [place] [address] [place] [address] 12/08/2024 8:00 AM CALIBRATION SPECIALIST Office Visit [place] [address] [place] [address] 12/11/2024 8:00 AM CALIBRATION SPECIALIST Office Visit [place] 1705 N [facility] [address] [place] [address] 12/15/2024 8:20 AM CALIBRATION SPECIALIST Office Visit [place] [facility] [facility] [address] [place] [address] Kirit Torres MD [address] [place] [address] documented as of this encounter Visit Diagnoses Not on filedocumented in this encounter Care Teams Director Of Conservation Relationship Specialty Start Date End Date Kirit Torres MD [address] [place] [address] PCP - General 11/23/22 documented as of this encounter
--- OUTSIDE RECORDS SUMMARY | 2024-10-10 17:09 | XMS_ITS | Encounter Summary ---
Author Organization [facility] er Address [address] [place] [address] Care Team Providers Care Sustainable Agriculture Faculty Name Role Phone Kirit Torres MD Primary Care Provider Encounter Details Date Type Department Care Team (Late st Contact Info) Description 08/25/2024 Results Follow-Up [place] [address] [address] Kirit Torres MD 170[facility] 20 [place] [address] Basic metabolic panel, Estimated Glomerular Filtration Rate [...] from your doctor or pharmacy? Never 06/10/2024 [facility] Utilities Answer Date Recorded In the past 12 months has [facility] [employer], gas, oil, or water [employer] threatened to shut off services in [...] often do you attend chur ch or mormonism services? 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 02/06/1976 02/05/18 83 documented [...] [place] [address] [place] [address] 12/08/2024 8:00 AM PHYSICAL FITNESS TRAINER Office Visit [place] [address] [place] [address] 12/11/2024 8:00 AM PHYSICAL FITNESS TRAINER Office Visit [place] [address] [place] [address] 12/15/2024 8:20 AM PHYSICAL FITNESS TRAINER Office Visit [place] 1705 [facility] 20 [place] [address] Kirit Torres MD 1705 [facility] 20 [place] [address] documented as of this encounter Visit Diagnoses Not on filedocumented in this encounter Care Teams Sustainable Agriculture Faculty Relationship Specialty Start Date End Date Kirit Torres MD [address] [place] [address] 20 [place] [address] PCP - General 11/23/22 documented as of this encounter
--- OUTSIDE RECORDS SUMMARY | 2024-10-10 17:09 | XMS_ITS | Encounter Summary ---
Author Organization [facility] er Address [address] [place] [address] Care Team Providers Care Property Management Coordinator Name Role Phone Kirit Torres MD Primary Care Provider [phone] Reason for Visit * Reason Onset Date Comments Pre-visit Labs 08/25/2024 Encounter Details Date Type Department Care Team (Late st Contact Info) Description 08/25/[address] [phone] Kirit Torres MD [address] [place] [address] Pre-visit Labs Social History Tobacco Use Types Packs/Day Years Used Date Smoking Tobacco: Former Cigarettes 0.4 2 1 755 - 1976 Smokeless Tobacco: Never Alcohol Use Standard Drinks/Week Comments No 0 (1 standard drink = 0.6 oz pur e alcohol) sober since 1999 B1300 Health Literacy Answer Date Recor ded How often do you need to hav e someone help you when you read instructions, pamphlets, or other written material from your doctor or pharmacy? Never 06/10/2024 [facility] Utilities Answer Date Recorded In the past 12 months has e electric, gas, oil, or water [employer] threatened to shut off services in your [...] How often do you attend chur or tenriism services? More than 4 times per year 06/10/2024 Do you belong to any clubs o r organizations such as religious groups, unions, fraternal or athletic groups, or [...] Date Recorded PHQ-9 Total Score 1 06/10/2024 [facility] [place] of Occupat ional Health - Occupational Stress [...] place to sleep or slept in a halfway (including now)? No 12/08/2022 Housing Stability Vital Sign Answer Anup e Recorded In the last 12 months, was t here a time when you were not able to pay the mortgage or rent on time? No 06/10/2024 In the past 12 months, how m any times have you moved where you were living? 0 06/10/2024 At any time in the past 12 m [facility], were you homeless or living in a halfway (including now)? 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 02/06/1976 02/05/18 [...] History of cardioversion 03/17/2020 Current use of supervisor intermediates 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 03/17/2020 Sinus of Valsalva aneurysm 11/26/2019 [...] 8:20 AM CDT Clinical Support [place] [address] [place] [address] [address] [place] [address] 12/08/2024 8:00 AM INSULATION CUTTER Office Visit [place] [address] [place] [address] [address] [place] [address] 12/11/2024 8:00 AM INSULATION CUTTER Office Visit [place] [address] [place] [address] [address] [place] [address] 12/15/2024 8:20 AM INSULATION CUTTER Office Visit [facility] [address] [address] Kirit Torres MD 1705 [facility] 20 [place] [address] Scheduled Orders Name Type Priority Associated Diagnoses Orde r Schedule Urinalysis with reflex microscopic (lab staff release/collect) Lab Routine Essential hypertension Expected: 12/10/2024, Expires: 08/25/2025 Microalbumin/Creatinine Ratio Lab Routine Essential hypertension Expected: 12/10/2024, Expires: 08/25/2025 documented as of this encounter Visit Diagnoses Diagnosis Essential hypertension- Primary Unspecified essential hypertension documented in this encounter Care Teams Property Management Coordinator Relationship Specialty Start Date End Date Kirit Torres MD 1705 [facility] 20 [place] [address] PCP - General 11/23/22 documented as of this encounter
--- OUTSIDE RECORDS SUMMARY | 2024-10-10 17:09 | XMS_ITS | Clinical Summary ---
Author Organization [facility] Address [address] [place] [address] Care Team Providers Care Office Helper Name Role Phone Unavailable Primary Care Provider Unavailabl e Source Comments Patient records contain information from all sites at [facility]. For routine questions regarding patient records, call [phone] during business hours, M-F 8:00 AM - 5:00 PM Central Time. 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 Gender Identity Not on file Sexual Orientation [...] 2 - PCV20 or PCV21) 11/04/2020 11/05/2019 Depression Screening (Annual PHQ-2) 02/06/2024 Fall Risk Screen (Annual) 02/06/2024 COVID-19 Vaccine ( season) 2024 05/04/2023, 10/15/2021, 05/18/2021, Additional history exists Influenza Vaccine (#1) 2024 , 10/15/2021, 11/02/2020, Additional history exists DTaP,Tdap,and Td Vaccines (2 - Td or Tdap) 01/06/2028 01/05/2018, 08/24/1997 Hepatitis C Screening Completed 01/09/2001 Zoster Vaccines Completed 03/20/2019, 12/20/2018 IPV Vaccines Aged Out No longer eligi ble based on patient's age to complete this topic Medical Devices Implanted Type Area Hardware Manager Device Identifier Shelf Expiration Date Model / Serial / Lot Conversions - Default Historical Implant Device Implanted:12/26 (Quantity not on file) Hip Implant Right: Hip Description:Body Location - Hip R. Device Status Text - Hip Imp. Insurance [facility]
--- OUTSIDE RECORDS SUMMARY | 2024-10-10 17:09 | XMS_ITS | Encounter Summary ---
Author Organization [facility] er Address [address] [place] [address] Care Team Providers Care Primary Care Physician Name Role Phone Kirit Torres MD Primary Care Provider Encounter Details Date Type Department Care Team (Late st Contact Info) Description 08/07/2023 Telephone [place] [address] [place] [address] Kirit Torres MD [address] [place] [address] Social History Tobacco Use Types Packs/Day Years [...] any clubs o r organizations such as gnosticism groups, unions, fraternal or athletic groups, or [...] Date Recorded PHQ-9 Total Score 1 08/01/2023 [facility] of Occupat ional Health - Occupational [...] in a alf (including now)? 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 Not on file Not on file Not on file documented as of this encounter Plan of Treatment Upcoming Encounters Date Type Department Care Team (Late st Contact Info) Description 10/28/2024 8:20 AM CDT Clinical Support [place] [address] 12/08/2024 8:00 AM BINDING PRINTER Office Visit [address] [address] 12/11/2024 8:00 AM BINDING PRINTER Office Visit [address] [address] 12/15/2024 8:20 AM BINDING PRINTER Office Visit [address] [address] Kirit Torres MD 1705 [facility] 20 [place] [address] documented as of this encounter Visit Diagnoses Not on filedocumented in this encounter Care Teams Primary Care Physician Relationship Specialty Start Date End Date Kirit Torres MD [address] [place] [address] PCP - General 11/23/22 documented as of this encounter
--- OUTSIDE RECORDS SUMMARY | 2024-10-10 17:09 | XMS_ITS | Clinical Summary ---
Author Organization [facility] er Address [address] [place] [address] Care Team Providers Care Track Repair Worker Name Role Phone Kirit Torres MD Primary Care Provider Allergies No known active allergies Medications * This document contains information received from the source organization and may not represent a complete record from that organization. finasteride (Propecia) 1 MG tabletIndication s:Hair loss Take one tab a day for hair loss. Do not crush, chew, or split. 90 tablet 3 12/11/19 24 Active acetic acid-hydrocortis one (VOSOL-HC) otic solutionIndicati ons:Itching of ear Administer 4 drops into affected ear(s) 4 (four) times a day if needed (itching) 10 mL 5 12/11/19 24 025 Active famotidine (PEPCID/ZANTAC 360) 20 MG tabletIndication s:Gastroesophage al reflux disease, unspecified whether esophagitis present TAKE 1 TABLET(20 MG) BY MOUTH TWICE DAILY 180 tablet 3 04/01/19 25 Active DULoxetine (CYMBALTA) [address] capsuleIndicatio ns:Lumbar radicular syndrome TAKE 1 CAPSULE(60 MG) BY MOUTH 1 TIME EACH DAY. DO NOT CRUSH OR CHEW 90 capsule 1 05/06/19 25 Active Fluticasone-Salm eterol (ADVAIR DISKUS) 100-50 MCG/ACT diskus inhalerIndicatio ns:Chronic obstructive pulmonary disease, unspecified COPD type (HCC) Inhale 1 puff 2 (two) times a day Rinse mouth with water after use to reduce aftertaste and incidence of candidiasis. Do not swallow. 60 each 2 08/01/19 25 026 Active albuterol HFA (Ventolin HFA) 108 (90 Base) MCG/ACT inhalerIndicatio ns:Wheezing Inhale 2 puffs every 4 (four) hours if needed for wheezing or shortness of breath 18 g 2 08/01/19 25 026 Active metoprolol succinate XL (Toprol XL) 25 MG 24 hr tabletIndication s:Paroxysmal atrial fibrillation (HCC) Take 2 tablets (50 mg total) by mouth 1 (one) time each day for 5 days, THEN 1 tablet (25 mg total) 1 (one) time each day. Do not crush or chew. 100 tablet 08/27/19 25 025 Active rivaroxaban (Xarelto) 20 MG tabletIndication s:Paroxysmal atrial fibrillation (HCC) Take 1 tablet (20 mg total) by mouth 1 (one) time each day 90 tablet 3 08/27/19 25 Active amLODIPine (NORVASC) 10 MG tabletIndication s:Primary hypertension TAKE 1 TABLET(10 MG) BY MOUTH 1 TIME EACH DAY 90 tablet 3 09/16/19 25 Active polyethylene glycol (MiraLax) 17 GM/SCOOP powderIndication s:Constipation, unspecified constipation type Take 17 g by mouth 1 (one) time each day 510 g 11 09/26/19 25 Active hydroCHLOROthiaz evelina (HYDRODIURIL) 25 MG tabletIndication s:Primary hypertension Take 2 tablets (50 mg total) by mouth 1 (one) time each day 09/26/19 25 Active olmesartan (Benicar) 20 MG tabletIndication s:Primary hypertension Take 1 tablet (20 mg total) by mouth 1 (one) time each day 30 tablet 10/10/19 25 Active hydroCHLOROthiaz evelina (HYDRODIURIL) 25 MG tabletIndication s:Primary hypertension Take 1 tablet (25 mg total) by mouth 1 (one) time each day 90 tablet 3 08/01/19 25 025 Discontinued amLODIPine (Norvasc) 10 MG tabletIndication s:Primary hypertension Take 1 tablet (10 mg total) by mouth 1 (one) time each day 30 tablet 09/11/19 25 025 Discontinued Active Problems Problem Noted Date Diagnosed Date Cyst of pharynx 12/18/2023 Bilateral sensorineural hearing loss 12/10/2023 Osteoarthritis of spine with radiculopathy, lumbosacral region 07/11/2021 Foraminal stenosis of lumbosacral region 022 Overview (07/11/2021): MRI report received on 07/07/21, sent to scanning Paroxysmal atrial fibrillation 05/10/2021 Obesity, Class II, BMI 35-39.9 04/17/2021 LEONCIO (obstructive sleep apnea) 11/08/2020 Overview (09/10/2024): Uses mandibular device Chronic back pain 09/01/2020 Benign prostatic hyperplasia with urinary freque ncy 08/18/2020 History of cardioversion 03/17/2020 Current use of nursing home 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 021 Sinus of Valsalva aneurysm 11/26/2019 Tinnitus of both ears 11/05/2019 Ventral hernia without obstruction or gangrene 1 Descending aortic aneurysm 10/31/2018 Primary hypertension 04/09/2018 Laryngopharyngeal reflux (LPR) 04/09/2018 Chronic hip pain, right 12/13/2016 Resolved Problems Problem Noted Date Diagnosed Date Resolved Date Obesity, morbid 07/31/2024 09/10/2024 Dizziness and giddiness 12/18/2023 08/0 07/2024 Bilateral impacted cerumen 12/18/2023 0 09/10/2024 Persistent atrial fibrillation 11/26/2019 02/19/2024 Decreased hearing of both ears 11/05/2019 01/29/2024 Class 1 obesity due to exces s calories without serious comorbidity with body mass index (BMI) of 33.0 to 33.9 in adult 11/05/2019 Postoperative visit 01/09/2019 11/05/19 20 History of alcohol abuse 10/31/2018 Adjustment disorder with mix ed anxiety and depressed mood 12/05/2017 09/10/2024 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 10/31/2018 Encounters Date Type Department Care Team Description 10/10/2024 Telephone [facility] [address] [place] [address] Amol Carmichael MD 10/09/2024 3:20 PM CDT Clinical Support [facility] Ramos[address] [place] [address] [place] [address] Blood pressure check (Primary Dx); Primary hypertension 10/09/2024 3:00 PM CDT Lab [facility] Ramos[address] [place] [address] [place] [address] Primary hypertension 10/09/2024 Refill Jose Juan Hung [address] [place] [address] [place] [address] Kirit Torres MD Primary hypertension 10/08/2024 Results Follow-Up Jose Juan Ramos[address] [place] [address] [place] [address] Kirit Torres MD H. pylori antigen, stool 10/01/2024 8:15 AM CDT Lab Jose Juan Ramos[address] [place] [address] [place] [address] Gastroesophageal reflux disease, unspecified whether esophagitis present 09/28/2024 Refill Jose Juan Hung [address] [place] [address] [place] [address] Kirit Torres MD Primary hypertension 09/25/2024 9:20 AM CDT Office Visit [facility] Juan Ramos[address] [place] [address] [place] [address] Kirit Torres MD Constipation, unspecified constipation type (Primary Dx); Primary hypertension; Gastroesophageal reflux disease, unspecified whether esophagitis present 09/18/2024 6:35 AM CDT - 09/18/2024 11:59 PM CDT Hospital Encounter [facility] Ultrasound [address] [place] [address] Discharge Disposition: Home or Self Care 09/18/2024 6:34 AM CDT Hospital Encounter [facility] Ultrasound [address] [place] [address] Discharge Disposition: Home or Self Care 09/18/2024 Results Follow-Up Jose Juan Ramos[address] [place] [address] [place] [address] Kirit Torres MD Ultrasound Retroperitoneum Kidney Vessels 09/10/2024 Refill Jose Juan Hung [address] [place] [address] [place] [address] Kirit Torres MD Primary hypertension 09/10/2024 Results Follow-Up [address] [address] Kirit Torres MD Basic metabolic panel, Estimated Glomerular Filtration Rate (eGFR) 09/10/2024 Telephone Jose Juan Hung [address] [place] [address] Kirit Torres MD 09/09/2024 9:15 AM CDT Lab [facility] [address] [place] [address] Essential hypertension (Primary Dx); Obesity, Class II, BMI 35-39.9 09/09/2024 8:40 AM CDT Office Visit [facility] [address] Kirit Torres MD Primary hypertension (Primary Dx); Paroxysmal atrial fibrillation (HCC); History of smoking; Descending aortic aneurysm 09/02/2024 2:45 PM CDT Lab [facility] [address] [place] [address] Elevated serum creatinine 09/02/2024 11:30 AM CDT Office Visit [facility] [address] [place] [address] Rafat Lagunas MD Spinal stenosis of lumbar region with neurogenic claudication (Primary Dx) 09/02/2024 Refill [facility] [address] [place] [address] Kirit Torres MD Primary hypertension 09/02/2024 Results Follow-Up [facility] [address] [place] [address] Kirit Torres MD Creatinine, Serum, Estimated Glomerular Filtration Rate (eGFR) 08/27/2024 Telephone [facility] 4th Floor [address] [place] [address] Kirit Torres MD Hypertension Medication 08/26/2024 3:20 PM CDT Office Visit [facility] [address] [place] [address] Kirit Torres MD Elevated serum creatinine (Primary Dx); Paroxysmal atrial fibrillation (HCC); Essential hypertension; Primary hypertension; Atrial fibrillation, controlled (HCC); Elevated fasting glucose 08/26/2024 Nurse Triage [facility] [address] Kirit Torres MD 08/25/2024 8:20 AM CDT Clinical Support [address] [address] Essential hypertension (Primary Dx) 08/25/2024 8:00 AM CDT Lab [address] [address] Primary hypertension 08/25/[address] [address] Kirit Torres MD Pre-visit Labs 08/25/2024 Results Follow-Up [address] [address] Kirit Torres MD Basic metabolic panel, Estimated Glomerular Filtration Rate (eGFR) 08/25/[address] [address] Kirit Torres MD Fatigue 08/22/2024 Anticoagulation - Other Visit An[facility] [address] [place] [address] Traci Schulz RN Paroxysmal atrial fibrillation (HCC) (Primary Dx); Current use of nursing home 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 08/14/2024 9:00 AM CDT Clinical Support [address] [address] Primary hypertension (Primary Dx); Essential hypertension 08/14/[address] [address] Kirit Torres MD Nursing BP check and lab work 07/31/2024 11:20 AM CDT Office Visit [address] [address] Kirit Torres MD Obesity, morbid (HCC) (Primary Dx); Paroxysmal atrial fibrillation (HCC); Essential hypertension; Primary hypertension; Chronic obstructive pulmonary disease, unspecified COPD type (HCC); Wheezing; Lumbar radicular syndrome 07/31/2024 Refill [place] [address] [address] Kirit Torres MD Chronic obstructive pulmonary disease, unspecified COPD type (HCC) 07/28/2024 Refill [facility] [address] [address] Kirit Torres MD Paroxysmal atrial fibrillation (HCC); Essential hypertension 07/18/[address] [facility] Sleep Medicine [address] [place] [address] Sara Bajwa MD 07/15/2024 Refill [facility] [address] [address] Kirit Torres MD Primary hypertension 07/15/2024 Telephone [facility] [address] [place] [address] Kirit Torres MD Med Refill 07/10/2024 1:20 PM CDT Office Visit [facility] Sleep Medicine [address] [place] [address] Sara Bajwa MD LEONCIO (obstructive sleep apnea) (Primary Dx); Paroxysmal atrial fibrillation (HCC); History of cardioversion; Essential hypertension from Last 3 Months Immunizations Immunization Administration Dates Next Due COVID-19, mRNA, LNP-S, PF, 30mcg/0.3mL dose Pfizer 05/18/2021,11/16/2020,05/13/2020,2020 COVID-19, mRNA, LNP-S, bival ent booster 12 yr and older, PF, 30mcg/0.3mL dose (pfizer) 10/15/2021 COVID-19, mRNA, LNP-s, PF, jed-succrose, 30mcg/0.3mL, COMIRNATY Ages 12+ 05/29/2024,11/26/2023 COVId-19, mRNA, LNP-s, PF, 50mcg/0.5mL Ages 12+ (Moderna Spikevax) 05/04/2023 Flu Vaccine 50-64yrs Flublok (Egg Free) 11/05/2019 INFLUENZA QUADRIVALENT MDV (IM) 11/27/2018 Influenza 6mo-64yrs Quad Pre servative Free IM 10/15/2022,10/15/2021,11/05/2019,2018,01/21/2018,12/09/2015 Influenza, Adjuvanted, Triva lent, PF (FLUAD) 11/26/2023 Influenza, Split Virus, Triv alent, Preservative 11/02/2020,11/10/2016,12/31/2012,2008 Influenza, Unspecified 11/05/2019,12/31/2012, Influenza, injectable, MDCK, preservative free, quadrivalent, 0.5mL [...] Tobacco: Former Cigarettes 0.4 2 1 5 - 1976 Smokeless Tobacco: Never Alcohol Use Standard Drinks/Week Comments No 0 (1 standard drink = 0.6 oz pur e alcohol) sober since 1999 B1300 Health Literacy Answer Date Recor ded How often do you need to hav e someone help you when you read instructions, pamphlets, or other written material from your doctor or pharmacy? Never 06/10/2024 [facility] Utilities Answer Date Recorded In the past 12 months has e [employer]MS [employer], gas, oil, or water [employer] threatened to shut off services in your [...] week 06/10/2024 How often do you attend [facility] or voodoo services? More than 4 times per year [...] Date Recorded PHQ-9 Total Score 1 06/10/2024 [facility] [place] of Occupat ional Health - Occupational Stress [...] in the past 12 m [facility], were you homeless or living in a skilled nursing (including now)? No 06/10/2024 Interpersonal Safety Questionnaire Answer Date Recorded How often does anyone, jaydon rich family and friends, physically hurt you? Never 02/18/2024 How often does anyone, jaydon rich family and friends, insult or talk down to you? Never 02/18/2024 How often does anyone, inclu layla family and friends, threaten you with harm? 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 02/06/1976 02/05/18 83 Last Filed Vital Signs Vital Sign Reading Time Taken Comments Blood Pressure 141/99 10/09/2024 3:33 PM CDT Pulse 92 10/09/2024 3:20 PM CDT Temperature 36.6 C (97.9 F) 09/25/2024 9:24 AM CDT Respiratory Rate 20 09/25/2024 9:24 AM CDT Oxygen Saturation 94% 09/25/2024 9:24 AM CDT Inhaled Oxygen Concentration - - Weight 123 kg (271 lb 3.2 oz) 09/25/2024 9:24 AM CDT Height 180.3 cm (5' 11) 09/25/2024 9:24 AM CDT Body Mass Index 37.82 09/25/2024 9:24 AM CDT Plan of Treatment Upcoming Encounters Date Type Department Care Team (Late st Contact Info) Description 10/28/2024 8:20 AM CDT Clinical Support Jose Juan Hung [address] [place] [address] 20 [place] [address] 12/08/2024 8:00 AM PRINCIPAL LIBRARIAN Office Visit [facility] [address] 12/11/2024 8:00 AM PRINCIPAL LIBRARIAN Office Visit [facility] [place] [address] 12/15/2024 8:20 AM PRINCIPAL LIBRARIAN Office Visit [facility] [address] [place] [address] Kirit Torres MD [address] [facility] 20 [place] [address] Health Maintenance Due Date Last Done Comments [...] this topic Medical Devices Implanted Type Area Philatelic Consultant Device Identifier Shelf Expiration Date Model / Serial / Lot Ventralight St W/ Echo2 11cm - [id number] Implanted:Qty: 1 on 12/31/2018 by Ned Arguelles MD at [facility] N/A: Abdomen 08/03/2019 [id number] / / [id number] Articulating Crime Data Specialist 3 X 10 - [id number] Implanted:Qty: 1 on 12/31/2018 by Ned Arguelles MD at [facility] N/A: Abdomen 08/04/2021 [id number] / / [id number] Procedures Procedure Name Priority Date/Time Associated Diagnosis Comments ESTIMATED GLOMERULAR FILTRATION RATE (EGFR) Routine 10/09/2024 3:07 PM CDT Primary hypertension BASIC METABOLIC PANEL Routine 10/09/2024 3:07 PM CDT Primary hypertension H. PYLORI ANTIGEN, STOOL Routine 10/01/2024 7:30 AM CDT Gastroesophageal reflux disease, unspecified whether esophagitis present US ABDOMEN AAA SCREENING ONLY, ONE-TIME ORDER, NOT FOR ED USE Routine 09/18/2024 8:40 AM CDT History of tobacco use US ABDOMEN DUPLEX COMPLETE Routine 09/18/2024 8:37 AM CDT Primary hypertension History of smoking Descending aortic aneurysm ESTIMATED GLOMERULAR FILTRATION RATE (EGFR) Routine 09/09/2024 9:15 AM CDT Essential hypertension Obesity, Class II, BMI 35-39.9 BASIC METABOLIC PANEL Routine 09/09/2024 9:15 AM CDT Essential hypertension Obesity, Class II, BMI 35-39.9 ESTIMATED GLOMERULAR FILTRATION RATE (EGFR) Routine 09/02/2024 3:05 PM CDT Elevated serum creatinine CREATININE, SERUM Routine 09/02/2024 3:0 5 PM CDT Elevated serum creatinine ESTIMATED GLOMERULAR FILTRATION RATE (EGFR) Routine 08/25/2024 8:03 AM CDT Primary hypertension BASIC METABOLIC PANEL Routine 08/25/2024 8:03 AM CDT Primary hypertension from Last 3 Months Results * (ABNORMAL) Estimated Glomerular Filtration Rate (eGFR) (10/09/2024 3:07 PM CDT) Only the most recent of4 resultswithin the time period is included. Estimated Glomerular Filtration Rate (eGFR) 44(A) 10/10/2024 1:34 PM CDT [facility] Comment: GFR calculated from serum creatinine value Chronic Kidney Disease less than 60 mL/min/1.73 m2 Kidney Failure less than 15 mL/min/1.73 m2 Note: effective 02/01/2022: 2020 CKD-EPI Equation used 10/09/2024 3:07 PM CDT 10/09/2024 3:07 PM CDT us Kirit Torres MD LAB BLOOD ORDERABLES Final R esult [facility] [address] [place] [address] * (ABNORMAL) Basic metabolic panel (10/09/2024 3:07 PM CDT) Only the most recent of3 resultswithin the time period is included. Sodium 138 135 - 145 mEq/L 10/10/2024 1:34 PM [facility] Potassium 2.7(LL) 3.5 - 5.1 mEq/L 10/10/2024 1:34 PM [facility] Chloride 96(L) 98 - 107 mEq/L 10/10/2024 1:34 PM [facility] CO2 34(H) 22 - 31 mmol/L 10/10/2024 1:34 PM [facility] Creatinine 1.70(H) 0.60 - 1.40 mg/dL 10/10/2024 1:34 PM [facility] BUN 18 5 - 25 mg/dL 10/10/2024 1:34 PM [facility] Glucose 99 70 - 100 mg/dL 10/10/2024 1:34 PM [facility] Calcium, Total,S 10.8(H) 8.4 - 10.2 mg/dL 10/10/2024 1:34 PM [facility] Anion Gap 8 4 - 13 10/10/2024 1:34 PM [facility] Comment: The anion gap is calculated with the following formula: AGAP = Na ? (Cl + CO2). Fasting? No 10/09/2024 3:21 PM [facility] Blood (Blood, Venous) 10/09/2024 3:07 PM CDT 10/10/2024 12:25 PM CDT Narrative [facility] - 10/10/2024 1:34 PM CDT Called to Cholo Andres 2.7, RBA. , , 13:34 10/10/2024 TPH Kirit Torres MD LAB BLOOD ORDERABLES Final R esult Performing Organization Address [facility] Co de Phone Number [facility] [address] [place] [address] * H. pylori antigen, stool (10/01/2024 7:30 AM CDT) H pylori Ag, Stl NEGATIVE Negative 10/03/2024 7:43 PM CDT [facility] Comment: H. pylori antigen is absent or below the level of detection. Stool (Per Rectum) 10/01/2024 7:30 AM CDT 10/01/2024 12:31 PM CDT Kirit Torres MD LAB BODY FLUIDS AND STOOLS O RDERABLES Final Result Performing Organization Address [facility] Co de Phone Number [facility] [address] [place] [address] * Ultrasound abdomen AAA SCREENING TEST ONLY [...] maximal diameter. IMPRESSION: No abdominal aortic aneurysm. us Kirit Torres MD IMG US PROCEDURES Final Resu lt * Ultrasound Retroperitoneum Kidney Vessels (09/18/2024 8:37 [...] MD IMG US PROCEDURES Final Resu lt * (ABNORMAL) Creatinine, Serum (09/02/2024 3:05 PM CDT) Creatinine 1.6(H) 0.6 - 1.4 mg/dL 09/02/2024 3:23 PM CDT [facility] JOSE JUAN HUNG Blood (Blood, Venous) 09/02/2024 3:05 PM CDT 09/02/2024 3:05 PM CDT Kirit Torres MD LAB BLOOD ORDERABLES Final R esult [facility] JOSE JUAN HUNG [address] [place] [address] from Last 3 Months Insurance [facility] MEDICARE ADVANTAGE Advance Directives For more information, please contact: [phone] Documents on File Type Date Recorded Patient Car Carder Expl anation Advance Directives and Livin g Will 04/30/2020 2:19 PM * Full Code (Latest Code Status on File) Date Activated Date Inactivated Comments 04/22/2021 1:45 PM 04/22/2021 6:59 PM * Full Code Date Activated Date Inactivated Comments 02/05/2020 1:14 PM 02/05/2020 8:21 PM * Full Code Date Activated Date Inactivated Comments 12/31/2018 2:23 PM 12/31/2018 7:46 PM Care Teams Track Repair Worker Relationship Specialty Start Date End Date Kirit Torres MD [address] [facility] 20 [place] [address] PCP - General 11/23/22
--- OUTSIDE RECORDS SUMMARY | 2024-10-10 17:09 | XMS_ITS | Encounter Summary ---
Author Organization [facility] er Address [address] [place] [address] Care Team Providers Care Motor Runner Name Role Phone Kirit Torres MD Primary Care Provider [phone] Reason for Visit * Reason Onset Date Comments Cardioversion 01/19/2020 Pt is calling to see when he can get his cardioversion scheduled. 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 Not on file Not on file Not on file documented as of this encounter Plan of Treatment Upcoming Encounters Date Type Department Care Team (Late Contact Info) Description 10/28/2024 8:20 AM CDT Clinical Support [facility]ian [facility] [facility] [address] [place] [address] 12/08/2024 8:00 AM PROGRAM DIRECTOR/MORNING SHOW HOST Office Visit Damian Hung [address] [place] [address] 12/11/2024 8:00 AM PROGRAM DIRECTOR/MORNING SHOW HOST Office Visit Damian Hung [address] [place] [address] 12/15/2024 8:20 AM PROGRAM DIRECTOR/MORNING SHOW HOST Office Visit Damian Hung [address] [facility] [address] [place] [address] Kirit Torres MD [address] [place] [phone] documented as of this encounter Visit Diagnoses Not on filedocumented in this encounter Additional Health Concerns Infection Onset Date Last Indicated Resolved Time COVID-19 Rule Out 02/03/2020 02/03/2020 02/03/2020 7:04 PM PROGRAM DIRECTOR/MORNING SHOW HOST documented as of this encounter Care Teams Motor Runner Relationship Specialty Start Date End Date Kirit Torres MD [address] [place] [phone] PCP - General 11/23/22 documented as of this encounter
--- OUTSIDE RECORDS SUMMARY | 2024-10-10 17:09 | XMS_ITS | Encounter Summary ---
Author Organization 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 Not on file Not on helena e Not on file 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 Not on file Not on file Not on file documented as of this encounter Plan of Treatment Upcoming Encounters Date Type Department Care Team (Late st Contact Info) Description 10/28/2024 8:20 AM CDT Clinical Support Damian Hung [address] [facility] [address] [place] [address] 12/08/2024 8:00 AM DATE PULLER Office Visit Damian Hung [address] [place] [address] 12/11/2024 8:00 AM DATE PULLER Office Visit Damian Hung [address] [place] [address] 12/15/2024 8:20 AM DATE PULLER Office Visit Damian Hung [address] [place] [address] Kirit Torres MD [address] [facility] [address] [place] [phone] documented as of this encounter Visit Diagnoses Not on filedocumented in this encounter Care Teams Physical Science Technician Relationship Specialty Start Date End Date Kirit Torres MD [address] [place] [phone] PCP - General 11/23/22 documented as of this encounter
--- OUTSIDE RECORDS SUMMARY | 2024-10-10 17:09 | XMS_ITS | Encounter Summary ---
Author Organization [facility] er Address [address] [place] [address] Care Team Providers Care Sales Agent [employer] Insurance Name Role Phone Kirit Torres MD Primary Care Provider [phone] Reason for Visit * Reason Comments Med Refill Encounter Details Date Type Department Care Team (Late st Contact Info) Description 02/02/2024 Refill [place] [address] [place] [address] Britany Coombs MD Atrial fibrillation, controlled (HCC) [...] from your doctor or pharmacy? Never 12/11/2023 [facility] Utilities Answer Date Recorded In the past 12 months has e [employer], gas, oil, or water [employer] threatened to shut off services in your [...] Date Recorded PHQ-9 Total Score 3 12/11/2023 [facility] - Occupational Stress Questionnaire Answer Date [...] place to sleep or slept in a care home (including now)? No 12/08/2022 Housing Stability [...] were you homeless or living in a care home (including now)? 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 rivaroxaban (Xarelto) 20 MG tablet [[id number]] Order Details Dose: 20 mg Route: Oral Frequency: Daily Dispense Quantity: 90 tablet Refills: 3 Sig: Take 1 tablet (20 mg total) by mouth 1 (one) time each day Start Date: 12/11/23 End Date: -- Written Date: 12/11/23 Expiration Date: 12/10/24 [employer] documented in this encounter Plan of Treatment Upcoming Encounters Date Type Department Care Team (Late st Contact Info) Description 10/28/2024 8:20 AM CDT Clinical Support [address] [address] 12/08/2024 8:00 AM BRICK OFF [facility]ER Office Visit [address] [address] 12/11/2024 8:00 AM [employer] Office Visit [address] [address] 12/15/2024 8:20 AM [employer] Office Visit [address] [address] Kirit Torres MD [address] [phone] documented as of this encounter Visit Diagnoses Diagnosis Atrial fibrillation, controlled (HCC) documented in this encounter Care Teams Sales Agent Fire Insurance Relationship Specialty Start Date End Date Kirit Torres MD [address] [place] [address] PCP - General 11/23/22 documented as of this encounter
[2024-10-10 17:26] VITALS: BP 148/94; PULSE 82; RESP 24; TEMP 36.8; O2SAT 95; BMI 38.2
--- NOTE | 2024-10-10 18:05 | ED.GENADULT ---
HPI - General Adult General Date Seen: 10/10/24 Chief complaint: Unspecified Complaint, Adult Stated complaint: low potassium levels Time Seen by Provider: 10/10/24 17:34 Source: patient Mode of arrival: ambulatory Limitations: no limitations History of Present Illness HPI narrative: Patient is a 64-year-old male presenting to the emergency department for abnormal lab work. States he got lab work done the other day and was called today by his provider to home him to come to the emergency department for low potassium. It was 2.7. He states he has been having fatigue and dizziness now for the past year but has not noticed any differences today. Has not had any chest pain or shortness of breath. States he has issues with constipation but that is also a chronic problem. Denies fevers, chills, abdominal pain, headache, lightheadedness, weakness, numbness. States he does not feeling different today than he has over the past year. No other concerns noted. Related Data Home Medications ?Medication ?Instructions ?Recorded ?Confirmed rivaroxaban 20 mg tablet 20 mg PO DAILY 10/18/21 08/26/24 duloxetine 30 mg capsule,delayed 30 mg PO QDAY 12/26/22 08/26/24 release valsartan PO 12/26/22 12/26/22 albuterol sulfate 90 mcg/actuation 2 puff inhalation Q4H PRN 08/26/24 08/26/24 aerosol inhaler (Ventolin HFA) diltiazem HCl 120 mg capsule,24 120 mg PO DAILY 08/26/24 08/26/24 hr,extended release diltiazem HCl 240 mg capsule,24 240 mg PO DAILY 08/26/24 08/26/24 hr,extended release famotidine 20 mg tablet 20 mg PO BID 08/26/24 08/26/24 finasteride 1 mg tablet 1 mg PO DAILY 08/26/24 08/26/24 fluticasone 100 mcg-salmeterol 50 inhalation 08/26/24 mcg/dose blistr powdr for inhalation (Shona Espinal) furosemide 20 mg tablet 20 mg PO DAILY 08/26/24 08/26/24 hydrochlorothiazide 12.5 mg tablet 12.5 mg PO DAILY 08/26/24 08/26/24 hydrochlorothiazide 25 mg tablet 25 mg PO DAILY 08/26/24 08/26/24 metoprolol succinate 25 mg 25 mg PO DAILY 08/26/24 08/26/24 tablet,extended release 24 hr umeclidinium 62.5 mcg/actuation 1 inh inhalation ONCE 08/26/24 08/26/24 blister powder for inhalation (Incruse Ellipta) valsartan 160 mg tablet 160 mg PO DAILY 08/26/24 08/26/24 valsartan 80 mg tablet 80 mg PO DAILY blood pressure 08/26/24 08/26/24 Previous Rx's ?Medication ?Instructions ?Recorded meclizine 25 mg tablet 25 mg PO QID #20 tabs 05/11/23 Allergies Allergy/AdvReac Type Severity Reaction Status Date / Time No Known Drug Allergies Allergy Verified 10/10/24 17:26 Review of Systems Status of ROS: Reports: 10 or more systems reviewed and unremarkable except as noted in History and below [facility] Medical History Encounter for follow-up ?Z09 - Encounter for follow-up examination after completed treatment for conditions other than malignant neoplasm (ICD-10) History of cardioversion ?Z98.890 - Other specified postprocedural states (ICD-10) History of back problems Sleep apnea ?G47.30 - Sleep apnea, unspecified (ICD-10) Stroke ?I63.9 - Cerebral infarction, unspecified (ICD-10) Surgical History H/O umbilical hernia repair (~2018) ?Z98.890 - Other specified postprocedural states (ICD-10) ?Z87.19 - Personal history of other diseases of the digestive system (ICD-10) History of total right hip replacement (~11/2015) ?Z96.641 - Presence of right artificial hip joint (ICD-10) Family History Mother Stroke Sister Diabetes Other Prostate cancer Social History Smoking Status: Never smoker Do you use any of these nicotine containing products: None Second hand tobacco smoke exposure: No How often do you have a drink containing alcohol: never AUDIT-C Alcohol total score: 0 Non-prescribed substance use: denies use service: No Exam Narrative: Exam Narrative: Const: Well-nourished, Well-developed, in no distress Eyes: PERRL, no conjunctival injection, and symmetrical lids HENT: Atraumatic external nose and ears. Moist mucous membranes. Neck: Symmetric, trachea midline, No thyromegaly. CVS: RRR, No murmurs or gallops. Peripheral pulses 2+ and equal in all extremities RESP: Unlabored respiratory effort. Clear to auscultation bilaterally. GI: Nontender/Nondistended, No rebound or guarding. MSK:Extremities w/o deformity, Normal Active ROM Skin: Warm, Dry. No rashes or lesions. Neuro: Normal Muscle tone, No focal neurological deficits. Psych: Awake, Alert, & Oriented x3. Appropriate mood and affect. Const: Vital Signs, click to edit/add: Vital Signs - 24 hr 10/10/24 17:26 Temperature 98.3 F Pulse Rate [Pulse Oximeter] 82 Respiratory Rate 24 Blood Pressure [Ri ght Upper Arm] 148/94 H Pulse Oximetry 95 Oxygen Delivery Me thod Room Air Course Vital Signs Vital signs: Initial Vital Signs Temperature 98.3 F 10/10/24 17:26 Temperature Source Temporal Artery Scan 10/10/24 17:26 Pulse Rate 82 10/10/24 17:26 Respiratory Rate 24 10/10/24 17:26 Blood Pressure 148/94 H 10/10/24 17:26 Blood Pressure Mean 112 H 10/10/24 17:26 Pulse Oximetry 95 10/10/24 17:26 Oxygen Delivery Method Room Air 10/10/24 17:26 Vital Signs Temperature 98.3 F 10/10/24 17:26 Pulse Rate 82 10/10/24 17:26 Respiratory Rate 24 10/10/24 17:26 Blood Pressure 148/94 H 10/10/24 17:26 Pulse Oximetry 95 10/10/24 17:26 Oxygen Delivery Method Room Air 10/10/24 17:26 Temperature 98.3 F 10/10/24 17:26 Pulse Rate 82 10/10/24 17:26 Respiratory Rate 24 10/10/24 17:26 Blood Pressure 148/94 H 10/10/24 17:26 Pulse Oximetry 95 10/10/24 17:26 Oxygen Delivery Method Room Air 10/10/24 17:26 Medications Administered Medications: Discontinued Medications Generic Name Dose Route Start Last Admin Trade Name Jerome PRN Reason Stop Dose Admin Magnesium Oxide 400 mg 10/10/24 18:44 10/10/24 19:10 Magnesium Oxide 400 Mg Tablet PO 10/10/24 18:45 400 mg ONCE ONE Administration Potassium Bicarbonate 50 meq 10/10/24 18:44 10/10/24 19:10 Potassium Bicarb 25 Meq Effervescent Tab PO 10/10/24 18:45 50 meq ONCE ONE Administration Medical Decision Making MDM Narrative Medical decision making narrative: A 64-year-old male presenting to the emergency department for low potassium. He is otherwise doing well and is his baseline. Will order CBC, BMP, magnesium. Lab work returned with potassium of 2.8 and a magnesium of 1.5. Magnesium is on the low end of normal so will replenish this along with replenishing his potassium. His creatinine is 1.0. In his records he was 1.7 just a few days ago. This is a noticeable improvement. EKG was done and appears similar to previous EKG on file. At this point he is safe for discharge. He is agreeable to this plan. Lab Data Labs: Lab Results 10/10/24 Range/Units 18:05 WBC 7.01 (4.50-11.00) K/uL RBC 4.77 (4.30-5.90) m/uL Hgb 14.6 (13.5-17.5) gm/dL Hct 41.3 (37.0-53.0) % MCV 87 (80-100) fL MCH 31 (26-34) pg MCHC 35 (32-36) gm/dL RDW Coeff of Jose 12.3 (11.5-15.5) % Plt Count 220 (140-440) K/uL Neut % (Auto) 50.9 (42.0-72.0) % Lymph % (Auto) 33.0 (20-44) % Door % (Auto) 9.7 (0.0-11.0) % Eos % (Auto) 5.4 (0.0-7.0) % Baso % (Auto) 0.7 (0.0-3.0) % Neut # (Auto) 3.57 (1.7-7.0) K/uL Lymph # (Auto) 2.31 (0.90-2.90) K/uL Door # (Auto) 0.70 (0.00-0.90) K/UL Eos # (Auto) 0.38 (0.00-0.50) K/uL Baso # (Auto) 0.05 (0.00-0.30) K/uL Abs Immat Gran (auto) 0.02 (0.00-0.30) K/uL Imm/Tot Granulo (auto) 0.3 % Sodium 136 (135-149) mmol/L Potassium 2.8 L* (3.6-5.1) mmol/L Chloride 95 L (96-114) mmol/L Carbon Dioxide 34 H (20-32) mmol/L Anion Gap 7 (7-15) mEq/L BUN 15 (7-30) mg/dL Creatinine 1.0 (0.5-1.5) mg/dL Estimated Creat Clear 77.39 Estimated GFR 83 ml/min Glucose 119 H (60-115) mg/dL Calcium 9.2 (8.4-10.6) mg/dL Magnesium 1.5 (1.5-2.6) mg/dL ECG Data Attestation: I personally reviewed and interpreted this ECG as follows: Prior ECG tracings: available for review Interpretation: Normal sinus rhythm with a rate of 79 beats per minute, normal intervals, borderline left axis but does look relatively similar to previous EKG on file, no ST or T-wave abnormalities. Discharge Plan Discharge Clinical Impression: Acute hypokalemia Patient Disposition: Home, Self-Care Condition: Stable Instructions: Hypokalemia (ED) Additional Instructions: Follow-up the primary care provider and Sunday for lab recheck. Speak to them about managing your low potassium. Return for new or worsening symptoms Prescriptions: No Action rivaroxaban 20 mg tablet 20 mg PO DAILY Rx Instructions: WITH MEAL valsartan PO duloxetine 30 mg capsule,delayed release(DR/EC) 30 mg PO QDAY diltiazem HCl 240 mg capsule,extended release 24hr 240 mg PO DAILY valsartan 80 mg tablet 80 mg PO DAILY famotidine 20 mg tablet 20 mg PO BID diltiazem HCl 120 mg capsule,extended release 24hr 120 mg PO DAILY hydrochlorothiazide 25 mg tablet 25 mg PO DAILY furosemide 20 mg tablet 20 mg PO DAILY metoprolol succinate 25 mg tablet extended release 24 hr 25 mg PO DAILY fluticasone propion-salmeterol [Wixela Inhub] 100-50 mcg/dose blister with device INHALATION Patient Comments: [NO ORIGINAL SIG] albuterol sulfate [Ventolin HFA] 90 mcg/actuation HFA aerosol inhaler 2 puff INHALATION Q4H PRN finasteride 1 mg tablet 1 mg PO DAILY valsartan 160 mg tablet 160 mg PO DAILY hydrochlorothiazide 12.5 mg tablet 12.5 mg PO DAILY Incruse Ellipta 62.5 mcg/actuation blister with device 1 inh INHALATION ONCE meclizine 25 mg tablet 25 mg PO QID Qty: 20 0RF Follow Up/Referrals: Tera Coombs MD [Primary Care Provider, Family Practice] Stand Alone Forms: Ensyn Info Instructions
[2024-10-10 18:24] LABS: Hematocrit 41.3 % (37.0-53.0); Hemoglobin* 14.6 gm/dL (13.5-17.5); Immature Granulocytes Abs Auto 0.02 K/uL (0.00-0.30); Immature Granulocytes Pct Auto 0.3 %; Lymphocytes Absolute Auto 2.31 K/uL (0.90-2.90); Mean Corpuscular HGB Conc 35 gm/dL (32-36); Mean Corpuscular Hemoglobin 31 pg (26-34); Mean Corpuscular Volume 87 fL (80-100); RDW Coefficient of Variation % 12.3 % (11.5-15.5); Red Blood Count 4.77 m/uL (4.30-5.90); White Blood Count* 7.01 K/uL (4.50-11.00)
[2024-10-10 18:25] LABS: Slide Review Reflex No
[2024-10-10 18:36] LABS: Chloride* 95 mmol/L (96-114); Sodium* 136 mmol/L (135-149)
[2024-10-10 18:39] LABS: Blood Urea Nitrogen* 15 mg/dL (7-30); Carbon Dioxide* 34 mmol/L (20-32); Creatinine* 1.0 mg/dL (0.5-1.5); Est. Creatinine Clearance* 77.39; Estimated Glomerular Filt Rate 83 ml/min
[2024-10-10 18:40] LABS: Calcium* 9.2 mg/dL (8.4-10.6); Glucose* 119 mg/dL (60-115); Potassium* 2.8 mmol/L (3.6-5.1)
[2024-10-10 18:41] LABS: Anion Gap 7 mEq/L (7-15)
[2024-10-10] MEDS: POTASSIUM BICARB 25 MEQ EFFERVESCENT TAB 50 MEQ PO (19:10)
[2024-10-10] MEDS: MAGNESIUM OXIDE 400 MG TABLET PO (19:10)
== END 2024-10-10 19:35 | disposition home or self-care (01) ==
PROVIDERS: Emergency Provider Student in an Organized Health Care Education/Training Program; PCP Family Medicine
DX: E87.6 Hypokalemia (principal)
CPT/HCPCS: 36415; 80048; 83735; 85025; 93005; 99283; 99284; A9270